=== PATIENT | female | born 1975 | race Caucasian/White ===

== ENCOUNTER → 2018-09-14 10:46 | Emergency (ER) | payer OTHER ==
--- OUTSIDE RECORDS SUMMARY | 2018-09-14 11:00 | XMS REPORT | Continuity of Care Document ---
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 Phencyclidine Screen None Detected None Detect 33 Comp Metabolic Panel 05/08/2018 [facility] Sodium 137 mmol/L N 135- 145 [phone] Potassium 3.8 mmol/L N 3.5-5.0 Chloride 103 mmol/L N 101-111 Co2 Carbon Dioxide 24 mmol/L N 22-32 Anion Gap 10 mmol/L N 2-11 Glucose 126 mg/dL High 70-100 Blood Urea Nitrogen 9 mg/dL N 6-24 Creatinine 0.68 mg/dL N 0.51-0.95 BUN/Creatinine Ratio 13.2 N 8-20 Calcium 9.4 mg/dL N 8.6-10.3 Total Protein 8.1 g/dL N 6.4-8.9 Albumin 4.3 g/dL N 3.2-5.2 Globulin 3.8 g/dL N 2-4 Albumin/Globulin Ratio 1.1 N 1-3 Total Bilirubin 0.40 mg/dL N 0.2-1.0 Alkaline Phosphatase 95 U/L N 34-104 Alt 25 U/L N 7-52 Ast 24 U/L N 13-39 Egfr Non- 94.9 >60 Egfr 114.8 >60 34 Laboratory test finding 05/08/2018 [facility] HCG < 0.60 mIU/ mL 35 [phone] Acetaminophen < 15 g/mL 36 Alcohol < 10 mg/dL N <10 Salicylate < 2.50 mg/dL <30 TSH (Thyroid Stim Horm) 1.07 mcIU/mL N 0.34-5.60 CBC Auto Diff 05/08/2018 [facility] White Blood 12.3 10^3/uL High 3.5 -10.8 [phone] Count Red Blood Count 5.06 10^6/uL N 4.00-5.40 Hemoglobin 13.8 g/dL N 12.0-16.0 Hematocrit 42 % N 35-47 Mean Corpuscular Volume 82 fL N 80-97 Mean Corpuscular Hemoglobin 27 pg N 27-31 Mean Corpuscular HGB Conc 33 g/dL N 31-36 Red Cell Distribution Width 15 % N 10.5-15 Platelet Count 465 10^3/uL High 150-450 Mean Platelet Volume 6.5 fL Low 7.4-10.4 Abs Neutrophils 8.5 10^3/uL High 1.5-7.7 Abs Lymphocytes 2.7 10^3/uL N 1.0-4.8 Abs Monocytes 0.8 10^3/uL N 0-0.8 Abs Eosinophils 0.2 10^3/uL N 0-0.6 Abs Basophils 0.1 10^3/uL N 0-0.2 Abs Nucleated RBC 0 10^3/uL Granulocyte % 69.3 % N 38-83 Lymphocyte % 21.7 % Low 25-47 Monocyte % 6.3 % N 0-7 Eosinophil % 1.5 % N 0-6 Basophil % 1.2 % N 0-2 Nucleated Red Blood Cells % 0.2 Urinalysis Profile 05/08/2018 [facility] Urine Color Yellow [phone] Urine Appearance Cloudy Urine Specific [place] 1.011 N 1.010-1.030 Urine pH 8.0 N 5-9 Urine Urobilinogen Negative Negative Urine Ketones Negative Negative Urine Protein Negative Negative Urine Leukocytes Negative Negative Urine Blood 2+ Abnormal Negative Urine Nitrite Negative Negative Urine Bilirubin Negative Negative Urine Glucose Negative Negative Urine White Blood Cell Trace(0-5/hpf) Absent Urine Red Blood Cell Trace(0-2/hpf) Absent Urine Bacteria Absent Absent Urine Squamous Epithelial Cell Present Abnormal Absent Urine Culture And 05/08/2018 [facility] Urine Culture SEE RESULT 37 Sensitivities [phone] BELOW Urine Drug Screen 04/25/2018 In House Ua Cocaine - Inhouse Ua Opiates - Ua Amphetamines - Urine Methanphetamines - Urine Benzodiazepines QN [place] - Urine Oxycodone QL - Urine Drug Screen Inhouse 04/11/2018 In House Ua Cocaine - Ua Opiates - Ua Amphetamines - Urine Methanphetamines - Urine Benzodiazepines QN [place] - Urine Oxycodone QL - Pthi 01/29/2018 [facility] Calcium (PTH Intact) 9.0 mg/dL N 8.6-10.3 [phone] PTH Intact 5.3 pmol/L N 1.3-9.3 Laboratory test 01/29/2018 [facility] TSH (Thyroid 1.55 mcIU/mL N 0.34-5.60 finding [phone] Stim Horm) Basic Metabolic 01/29/2018 [facility] Sodium 138 mmol/L N 135-145 Panel [phone] Potassium 4.3 mmol/L N 3.5-5.0 Chloride 106 mmol/L N 101-111 Co2 Carbon Dioxide 24 mmol/L N 22-32 Anion Gap 8 mmol/L N 2-11 Glucose 106 mg/dL High 70-100 Blood Urea Nitrogen 16 mg/dL N 6-24 Creatinine 0.89 mg/dL N 0.51-0.95 BUN/Creatinine Ratio 18.0 N 8-20 Calcium 9.0 mg/dL N 8.6-10.3 Egfr Non- 69.6 >60 Egfr 84.2 >60 38 Laboratory test 01/29/2018 [facility] Insulin Level 74.9 mcIU/mL High 2.0-16.0 finding [phone] Ua Inhouse 01/27/2018 In House Ua Glucose - 39 Ua Bilirubin - Ua Ketones - Ua Specific [place] 1.020 Ua Blood sm/ 1+ Ua PH 6.0 Ua Protein - Ua Urobilinogen - Ua Nitrite - Ua Leukocytes - Culture Urine Inhouse 01/27/2018 In House Colonies negative Laboratory test finding 01/27/2018 In House Test Urine negative Laboratory test finding 12/24/2017 In House Hemoglobin A1c 5.9 Laboratory test finding 12/04/2017 In House Culture Throat Rapid negative Screen Culture Throat negative Basic Metabolic Panel 11/28/2017 [facility] Sodium 134 mmol/L Low 135 -145 [phone] Potassium 4.3 mmol/L N 3.5-5.0 Chloride 101 mmol/L N 101-111 Co2 Carbon Dioxide 24 mmol/L N 22-32 Anion Gap 9 mmol/L N 2-11 Glucose 104 mg/dL High 70-100 Blood Urea Nitrogen 15 mg/dL N 6-24 Creatinine 0.70 mg/dL N 0.51-0.95 BUN/Creatinine Ratio 21.4 High 8-20 Calcium 9.3 mg/dL N 8.6-10.3 Egfr Non- 91.8 >60 Egfr 118.0 >60 40 CBC Auto Diff 11/28/2017 [facility] White Blood Count 9.6 10^3/uL N 3.5-10.8 [phone] Red Blood Count 4.54 10^6/uL N 4.00-5.40 Hemoglobin 12.7 g/dL N 12.0-16.0 Hematocrit 38 % N 35-47 Mean Corpuscular Volume 84 fL N 80-97 Mean Corpuscular Hemoglobin 28 pg N 27-31 Mean Corpuscular HGB Conc 33 g/dL N 31-36 Red Cell Distribution Width 15 % N 10.5-15 Platelet Count 405 10^3/uL N 150-450 Mean Platelet Volume 6.9 um3 Low 7.4-10.4 Abs Neutrophils 5.6 10^3/uL N 1.5-7.7 Abs Lymphocytes 2.8 10^3/uL N 1.0-4.8 Abs Monocytes 0.7 10^3/uL N 0-0.8 Abs Eosinophils 0.5 10^3/uL N 0-0.6 Abs Basophils 0.1 10^3/uL N 0-0.2 Abs Nucleated RBC 0 10^3/uL Granulocyte % 58.1 % N 38-83 Lymphocyte % 29.0 % N 25-47 Monocyte % 6.9 % N 0-7 Eosinophil % 5.0 % N 0-6 Basophil % 1.0 % N 0-2 Nucleated Red Blood Cells % 0.1 Celiac Panel 11/28/2017 [facility] Tissue Transglutaminase IgA <1.2 U/ mL 41 [phone] Ab Immunoglobulin A 358 mg/dL Abnormal 61 - 356 Celiac Interpretation See Comment 42 Laboratory test 11/28/2017 [facility] Erythrocyte Sed 29 mm/Hr High 0 -14 finding [phone] Rate Lyme Disease Serology Negative Negative 43 TSH (Thyroid Stim Horm) 1.95 mcIU/mL N 0.34-5.60 Laboratory test finding 09/26/2017 In House Hemoglobin A1c 6.0 Urinalysis Profile 06/24/2017 [facility] Urine Color Yellow [phone] Urine Appearance Cloudy Urine Specific [place] 1.021 N 1.010-1.030 Urine pH 6.0 N 5-9 Urine Urobilinogen Negative Negative Urine Ketones Negative Negative Urine Protein Negative Negative Urine Leukocytes 3+ Abnormal Negative Urine Blood 1+ Abnormal Negative Urine Nitrite Negative Negative Urine Bilirubin Negative Negative Urine Glucose Negative Negative Urine White Blood Cell 2+(11-20/hpf) Abnormal Absent Urine Red Blood Cell 1+(3-5/hpf) Abnormal Absent Urine Bacteria Absent Absent Urine Squamous Epithelial Cell Present Abnormal Absent Urine Drug 06/24/2017 [facility] Amphetamine Ur None Detected None Detect SCR ED & [phone] Screen Pain Clinic Barbiturates Urine Screen None Detected None Detect Benzodiazepine Urine Screen None Detected None Detect Urine Cannabinoids Screen None Detected None Detect Urine Cocaine Screen None Detected None Detect Urine Opiates Screen None Detected None Detect Urine Phencyclidine Screen None Detected None Detect 44 Laboratory test 06/24/2017 [facility] Urine Culture And SEE RESULT 45 finding [phone] Sensitivities BELOW CBC Auto Diff 06/24/2017 [facility] White Blood Count 10.4 10^3/uL N 3.5-10 [phone] .[phone] Red Blood Count 4.85 10^6/uL N 4.0-5.4 Hemoglobin 13.1 g/dL N 12.0-16.0 Hematocrit 40 % N 35-47 Mean Corpuscular Volume 82 fL N 80-97 Mean Corpuscular Hemoglobin 27 pg N 27-31 Mean Corpuscular HGB Conc 33 g/dL N 31-36 Red Cell Distribution Width 14 % N 10.5-15 Platelet Count 409 10^3/uL N 150-450 Mean Platelet Volume 7 um3 Low 7.4-10.4 Abs Neutrophils 6.5 10^3/uL N 1.5-7.7 Abs Lymphocytes 2.8 10^3/uL N 1.0-4.8 Abs Monocytes 0.8 10^3/uL N 0-0.8 Abs Eosinophils 0.2 10^3/uL N 0-0.6 Abs Basophils 0.1 10^3/uL N 0-0.2 Abs Nucleated RBC 0 10^3/uL Granulocyte % 62.4 % N 38-83 Lymphocyte % 26.9 % N 25-47 Monocyte % 7.3 % N 1-9 Eosinophil % 2.4 % N 0-6 Basophil % 1.0 % N 0-2 Nucleated Red Blood Cells % 0.1 Laboratory test 06/24/2017 [facility] Lactic Acid 1.9 mmol/L N 0.5- 2.0 46 finding [phone] Laboratory test 06/24/2017 [facility] HCG 0.75 mIU/mL 47 finding [phone] Acetaminophen < 15 g/mL 48 Alcohol < 10 mg/dL N <10 Salicylate < 2.50 mg/dL <30 Comp Metabolic Panel 06/24/2017 [facility] Sodium 134 mmol/L N 133- 145 [phone] Potassium 3.6 mmol/L N 3.5-5.0 Chloride 100 mmol/L Low 101-111 Co2 Carbon Dioxide 25 mmol/L N 22-32 Anion Gap 9 mmol/L N 2-11 Glucose 123 mg/dL High 70-100 Blood Urea Nitrogen 12 mg/dL N 6-24 Creatinine 0.70 mg/dL N 0.51-0.95 BUN/Creatinine Ratio 17.1 N 8-20 Calcium 9.4 mg/dL N 8.6-10.3 Total Protein 7.5 g/dL N 6.4-8.9 Albumin 3.9 g/dL N 3.2-5.2 Globulin 3.6 g/dL N 2-4 Albumin/Globulin Ratio 1.1 N 1-3 Total Bilirubin 0.20 mg/dL N 0.2-1.0 Alkaline Phosphatase 78 U/L N 34-104 Alt 16 U/L N 7-52 Ast 19 U/L N 13-39 Egfr Non- 92.2 >60 Egfr 118.6 >60 49 Laboratory test 06/12/2017 [facility] Hemoglobin A1c 6.3 % High 4.0- 5.6 50 finding [phone] (Glyco HGB) Laboratory test 06/12/2017 [facility] HCG 0.80 51 finding [phone] mIU/mL Basic Metabolic 06/12/2017 [facility] Sodium 137 N 133-145 Panel [phone] mmol/L Potassium 3.7 mmol/L N 3.5-5.0 Chloride 103 mmol/L N 101-111 Co2 Carbon Dioxide 27 mmol/L N 22-32 Anion Gap 7 mmol/L N 2-11 Glucose 106 mg/dL High 70-100 Blood Urea Nitrogen 10 mg/dL N 6-24 Creatinine 0.72 mg/dL N 0.51-0.95 BUN/Creatinine Ratio 13.9 N 8-20 Calcium 8.7 mg/dL N 8.6-10.3 Egfr Non- 89.3 >60 Egfr 114.8 >60 52 CBC Auto Diff 06/12/2017 [facility] White Blood 12.6 10^3/uL High 3.5 -10.8 [phone] Count Red Blood Count 4.39 10^6/uL N 4.0-5.4 Hemoglobin 12.2 g/dL N 12.0-16.0 Hematocrit 36 % N 35-47 Mean Corpuscular Volume 83 fL N 80-97 Mean Corpuscular Hemoglobin 28 pg N 27-31 Mean Corpuscular HGB Conc 34 g/dL N 31-36 Red Cell Distribution Width 14 % N 10.5-15 Platelet Count 398 10^3/uL N 150-450 Mean Platelet Volume 7 um3 Low 7.4-10.4 Abs Neutrophils 8.4 10^3/uL High 1.5-7.7 Abs Lymphocytes 3.1 10^3/uL N 1.0-4.8 Abs Monocytes 0.7 10^3/uL N 0-0.8 Abs Eosinophils 0.3 10^3/uL N 0-0.6 Abs Basophils 0.2 10^3/uL N 0-0.2 Abs Nucleated RBC 0 10^3/uL Granulocyte % 66.4 % N 38-83 Lymphocyte % 24.3 % Low 25-47 Monocyte % 5.5 % N 1-9 Eosinophil % 2.4 % N 0-6 Basophil % 1.4 % N 0-2 Nucleated Red Blood Cells % 0 1 Because ethnic data is not always readily available, this report includes an eGFR for both -Americans and non- Americans. The National Kidney Disease Education Program (NKDEP) does not endorse the use of the MDRD equation for patients that are not between the ages of 18 and 70, are , have extremes of body size, muscle mass, or nutritional status, or are non- or non-. According to the National Kidney Foundation, irrespective of diagnosis, the stage of the disease is based on the level of kidney function: Stage Description GFR(mL/min/1.73 m(2)) 1 Kidney damage with normal or decreased GFR 90 2 Kidney damage with mild decrease in GFR 60-89 3 Moderate decrease in GFR 30-59 4 Severe decrease in GFR 15-29 5 Kidney failure <15 (or dialysis) 2 Therapeutic concentration: <50 ug/mL Toxic concentration: >120 ug/mL 3 Presumptive Positive Presumptive positive results are unconfirmed. 4 The urine specimen was tested at the listed cutoffs: Drug class test level (ng/mL) Amphetamines 500 Barbiturates 200 Benzodiazepine metabolites 200 Cocaine metabolites 150 Cannabinoids 50 Opiates 300 Pcp 25 Specimen was received without chain of custody. Results should be used for medical purposes only. 5 void, clear, gold 6 <5.0 Negative 5.0 - 25.0 Indeterminate (Repeat testing recommended after 72 hours) >25.0 Positive Perimenopausal women can display HCG levels of up to 20 mIU/mL 7 SEE RESULT BELOW Name: ABRIL NGUYEN : [address]: Katy SEGOVIA Acct: [id number] Unit: [id number] AGE: 42 Location: [facility] Re07/15/18 SEX: F Status: REG REF SPEC: [id number] TYLER: 07/15/18-[address] [facility] [address]: Katy SEGOVIA REQ: [id number] RECD: 07/16/18-1251 STATUS: SOUT _ ORDERED: TP IMAGE ANALYS, HPV/Thin Prep COMMENTS: [id number] Negative for Intraepithelial lesion or Malignancy Date Time Test Result Flag (u) Normal Range 07/15/18 7737 @ HPV RNA Negative Negative @ @ The high-risk HPV types detected by the assay include: 16, @ 18, 31, 33, 35, 39, 45, 51, 52, 56, 58, 59, 66, and 68. A. Ectocervical/Endocervical Specimen Adequacy: Satisfactory of evaluation Transformation zone component not identified Patient Information: HPV: High risk HPV RNA testing regardless of pap results. Actual Specimen Date: 07/15/18 Last Menstrual Date: 07/09/18 ?: N Post Menopausal?: N Hysterectomy?: N Signed by and Reported on: VASHTI Menard(ASCP) 1028 This Pap test was evaluated with the assistance of the ThinPrep Test Imaging System. Due to cytologic findings at the med aide microscope, comprehensive manual rescreening by a Safe Technician may be required. The Pap Smear is a screening test designed to aid in the detection of premalignant and malignant conditions of the uterine cervix. It is not a diagnostic procedure and should not be used as the sole means of detecting cervical cancer. Both false- positive and false- negative reports do occur. Depending on your risk status, a Pap smear should be obtained and evaluated every 1-3 years. END OF REPORT DEPARTMENT OF PATHOLOGY, [address] [place] [address] Rashid Mcintosh M.D. Director [facility] # [id number] SEE RESULT BELOW Name: ABRIL NGUYEN : [address]: Je Rowland MD Acct: [id number] Unit: [id number] AGE: 42 Location: ED Re07/12/18 SEX: F Status: DEP ER SPEC: [id number] TYLER: 07/12/[address]: Kay Dai MD REQ: [id number] RECD: 07/12/18 STATUS: COMP [facility] DR: Joseph Hagen MD _ SOURCE: VAGINAL SPDESC: ORDERED: Lulu,Yeast DNA COMMENTS: Would you like to order Trichomonas Vaginalis RNA testing? Y Procedure Result Reported Site Gardnerella/Yeast: Vaginal DNA Final 07/13/18- 1108 ML Organism 1 POSITIVE GARDNERELLA Organism 2 Negative Mirlande The presence of G. vaginalis, although suggestive, is not diagnostic for bacterial vaginosis. Results should be interpreted in conjuction with other clinical and laboratory data available. Women with vaginal discharge should be evaluated for risk factors of cervicitis and pelvic inflammatory disease, toxic shock syndrome (S.aureus), and if present, evaluated for organisms not included in this assay such as N. gonorrhoeae, C. trachomatis, Mobiluncus, Mycoplasma and/or Prevotella. Mixed infections may occur. The performance of this test on patient specimens collected during or immediately after antimicrobial therapy is unknown. The presence or absence of Mirlande species, or G. vaginalis cannot be used as a test for therapeutic success or failure. * ML - Main Lab . END OF REPORT DEPARTMENT OF PATHOLOGY, [address] [place] [address] Rashid Mcintosh M.D. Director [facility] # [id number] 9 GC/Chlamydia Source?: Endocervical Trichomonas Source: Endocervical 10 [facility] Severe Sepsis and Septic Shock Management Bundle Measure requires all lactic acids initially measuring >2.0 mmol/L be repeated. 11 Presumptive Positive Presumptive positive results are unconfirmed. 12 Presumptive Positive Presumptive positive results are unconfirmed. 13 The urine specimen was tested at the listed cutoffs: Drug class test level (ng/mL) Amphetamines 500 Barbiturates 200 Benzodiazepine metabolites 200 Cocaine metabolites 150 Cannabinoids 50 Opiates 300 Pcp 25 Specimen was received without chain of custody. Results should be used for medical purposes only. 14 Because ethnic data is not always readily available, this report includes an eGFR for both -Americans and non- Americans. The National Kidney Disease Education Program (NKDEP) does not endorse the use of the MDRD equation for patients that are not between the ages of 18 and 70, are , have extremes of body size, muscle mass, or nutritional status, or are non- or non-. According to the National Kidney Foundation, irrespective of diagnosis, the stage of the disease is based on the level of kidney function: Stage Description GFR(mL/min/1.73 m(2)) 1 Kidney damage with normal or decreased GFR 90 2 Kidney damage with mild decrease in GFR 60-89 3 Moderate decrease in GFR 30-59 4 Severe decrease in GFR 15-29 5 Kidney failure <15 (or dialysis) 15 SEE RESULT BELOW Name: ABRIL NGUYEN : [address]: Je Rowland MD Acct: [id number] Unit: [id number] AGE: 42 Location: ED Re07/12/18 SEX: F Status: DEP ER SPEC: [id number] TYLER: 07/12/[address]: Kay Dai MD REQ: [id number] RECD: 07/12/18 STATUS: CONNIE GLOVER DR: Joseph Hagen MD _ SOURCE: URINE [facility]: ORDERED: Urine Culture Procedure Result Reported Site Urine Culture Final 07/14/18- 0850 ML Organism 1 ESCHERICHIA COLI [place] Count >100,000 (Many) CFU/ML 1. ESCHERICHIA COLI M.I.C. RX --------- ------ Ampicillin 8 S Cefazolin <=4 S Cefepime <=1 S Ceftriaxone <=1 S Ciprofloxacin <=0.25 S Gentamicin <=1 S Levofloxacin <=0.12 S Meropenem <=0.25 S Nitrofurantoin 64 I Tetracycline <=1 S Pipercillin/Tazobactam <=4 S Trimethoprim/Sulfamethoxazole <=20 S Amoxicillin/Clavulanic Acid 4 S Aztreonam <=1 S Contact the Microbiology Department for any additional antibiotic reporting. * ML - Main Lab . END OF REPORT DEPARTMENT OF PATHOLOGY, [address] [place] [id number] Rashid Mcintosh M.D. Director [facility] # [id number] 16 <5.0 Negative 5.0 - 25.0 Indeterminate (Repeat testing recommended after 72 hours) >25.0 Positive Perimenopausal women can display HCG levels of up to 20 mIU/mL 17 FASTING 18 No evidence of antibodies to B. burgdorferi detected. False negative results may occur in recently infected patients (<=2 weeks) due to low or undetectable antibody levels to B. burgdorferi. If recent exposure is suspected, a second sample should be collected and tested in 2-4 weeks. Test Performed by: [facility] [place] [address] 19 REFERENCE VALUE <=1.0 (Negative) Test Performed by: [facility] [place] [address] 20 FASTING 21 REFERENCE VALUE <20.0 (Negative) Test Performed by: [facility] [place] [address] 22 Because ethnic data is not always readily available, this report includes an eGFR for both -Americans and non- Americans. The National Kidney Disease Education Program (NKDEP) does not endorse the use of the MDRD equation for patients that are not between the ages of 18 and 70, are , have extremes of body size, muscle mass, or nutritional status, or are non- or non-. According to the National Kidney Foundation, irrespective of diagnosis, the stage of the disease is based on the level of kidney function: Stage Description GFR(mL/min/1.73 m(2)) 1 Kidney damage with normal or decreased GFR 90 2 Kidney damage with mild decrease in GFR 60-89 3 Moderate decrease in GFR 30-59 4 Severe decrease in GFR 15-29 5 Kidney failure <15 (or dialysis) 23 FASTING 24 FASTING 25 Desirable: <150 Borderline High: 150-199 High: 200-499 Very High: >500 26 Desirable: <200 Borderline High: 200-239 High: >239 27 Low: <40 Desirable: 40-60 High: >60 28 Desirable: <100 Near Optimal: 100-129 Borderline High: 130-159 High: 160-189 Very High: >189 29 Therapeutic target for the treatment of diabetes mellitus patients is <7% HBA1C, and in selective patients <6.0%. Please refer to [employer] diabetic care guidelines for further information. 30 FASTING 31 Presumptive Positive Presumptive positive results are unconfirmed. 32 Presumptive Positive Presumptive positive results are unconfirmed. 33 The urine specimen was tested at the listed cutoffs: Drug class test level (ng/mL) Amphetamines 500 Barbiturates 200 Benzodiazepine metabolites 200 Cocaine metabolites 150 Cannabinoids 50 Opiates 300 Pcp 25 Specimen was received without chain of custody. Results should be used for medical purposes only. 34 Because ethnic data is not always readily available, this report includes an eGFR for both -Americans and non- Americans. The National Kidney Disease Education Program (NKDEP) does not endorse the use of the MDRD equation for patients that are not between the ages of 18 and 70, are , have extremes of body size, muscle mass, or nutritional status, or are non- or non-. According to the National Kidney Foundation, irrespective of diagnosis, the stage of the disease is based on the level of kidney function: Stage Description GFR(mL/min/1.73 m(2)) 1 Kidney damage with normal or decreased GFR 90 2 Kidney damage with mild decrease in GFR 60-89 3 Moderate decrease in GFR 30-59 4 Severe decrease in GFR 15-29 5 Kidney failure <15 (or dialysis) 35 <5.0 Negative 5.0 - 25.0 Indeterminate (Repeat testing recommended after 72 hours) >25.0 Positive Perimenopausal women can display HCG levels of up to 20 mIU/mL 36 Therapeutic concentration: <50 ug/mL Toxic concentration: >120 ug/mL 37 SEE RESULT BELOW Name: ABRIL NGUYEN : [address]: Silvio Madrid MD Acct: [id number] Unit: [id number] AGE: 42 Location: [address] Re05/08/18 SEX: F Status: ADM IN SPEC: [id number] TYLER: 05/08/[address] [facility] [address]: Jimmy Deshpande MD REQ: [id number] RECD: 05/08/18 STATUS: CONNIE GLOVER DR: Joseph Hagen MD _ SOURCE: URINE SPDESC: ORDERED: Urine Culture Procedure Result Reported Site Urine Culture Final 05/10/18- 925 ML No growth of clinically significant organisms * ML - Main Lab . END OF REPORT DEPARTMENT OF PATHOLOGY, [address] [place] [address] Rashid Mcintosh M.D. Director [facility] # [id number] 38 Because ethnic data is not always readily available, this report includes an eGFR for both -Americans and non- Americans. The National Kidney Disease Education Program (NKDEP) does not endorse the use of the MDRD equation for patients that are not between the ages of 18 and 70, are , have extremes of body size, muscle mass, or nutritional status, or are non- or non-. According to the National Kidney Foundation, irrespective of diagnosis, the stage of the disease is based on the level of kidney function: Stage Description GFR(mL/min/1.73 m(2)) 1 Kidney damage with normal or decreased GFR 90 2 Kidney damage with mild decrease in GFR 60-89 3 Moderate decrease in GFR 30-59 4 Severe decrease in GFR 15-29 5 Kidney failure <15 (or dialysis) 39 geronimo, rossy mejia 40 Because ethnic data is not always readily available, this report includes an eGFR for both -Americans and non- Americans. The National Kidney Disease Education Program (NKDEP) does not endorse the use of the MDRD equation for patients that are not between the ages of 18 and 70, are , have extremes of body size, muscle mass, or nutritional status, or are non- or non-. According to the National Kidney Foundation, irrespective of diagnosis, the stage of the disease is based on the level of kidney function: Stage Description GFR(mL/min/1.73 m(2)) 1 Kidney damage with normal or decreased GFR 90 2 Kidney damage with mild decrease in GFR 60-89 3 Moderate decrease in GFR 30-59 4 Severe decrease in GFR 15-29 5 Kidney failure <15 (or dialysis) 41 REFERENCE VALUE <4.0 (Negative) Test Performed by: [place] [address] 42 Negative serology. Celiac disease unlikely. However, approximately 10% of patients with celiac disease are seronegative. Also, patients who are already adhering to a gluten-free diet may be seronegative. If celiac disease is highly clinically suspected, consider HLA-DQ typing. Test Performed by: [place] [id number] 43 No evidence of antibodies to B. burgdorferi detected. False negative results may occur in recently infected patients (<=2 weeks) due to low or undetectable antibody levels to B. burgdorferi. If recent exposure is suspected, a second sample should be collected and tested in 2-4 weeks. Test Performed by: [facility] [address] [place] [address] 44 The urine specimen was tested at the listed cutoffs: Drug class test level (ng/mL) Amphetamines 500 Barbiturates 200 Benzodiazepine metabolites 200 Cocaine metabolites 150 Cannabinoids 50 Opiates 300 Pcp 25 Specimen was received without chain of custody. Results should be used for medical purposes only. 45 SEE RESULT BELOW Name: ABRIL NGUYEN : [address]: Je Duarte MD Acct: [id number] Unit: [id number] AGE: 41 Location: ED Re06/24/17 SEX: F Status: DEP ER SPEC: [id number] TYLER: 06/24/[address]: Je Duarte MD REQ: [id number] RECD: 06/24/17 STATUS: COMP OTHR DR: Joseph Hagen MD _ SOURCE: URINE SPDESC: ORDERED: Urine Culture Procedure Result Reported Site Urine Culture Final 06/26/17- 811 ML No growth of clinically significant organisms * ML - MAIN LAB ([facility]) . END OF REPORT * ML=Testing performed at Main Lab DEPARTMENT OF PATHOLOGY, [address] [place] [address] Rashid Mcintosh M.D. Director [facility] #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
[2018-09-14 12:56] VITALS: BP 140/95
[2018-09-14 15:19] LABS: Hematocrit 39 % (33-41); Hemoglobin 12.8 g/dL (12.0-16.0); Mean Corpuscular HGB Conc 33 g/dL (31-36); Mean Corpuscular Hemoglobin 27 pg (27-31); Mean Corpuscular Volume 82 fL (80-97); Mean Platelet Volume 7.1 fL (7.4-10.4); Platelet Count 434 10^3/uL (150-450); Red Blood Count 4.74 10^6 /uL (3.70-4.87); Red Cell Distribution Width 15 % (10.5-15)
[2018-09-14 15:35] LABS: Albumin 4.1 g/dL (3.2-5.2); Albumin/Globulin Ratio 1.2 (1-3); BUN/Creatinine Ratio 22.4 (8-20); C Reactive Protein 5.52 mg/L (<8.01); Calcium 9.2 mg/dL (8.6-10.3); EGFR African American 137.9 (>60); Globulin 3.3 g/dL (2-4); Potassium 4.2 mmol/L (3.5-5.0); Total Bilirubin 0.2 mg/dL (0.2-1.0); Total Protein 7.4 g/dL (6.4-8.9)
== END | disposition left against medical advice (07) ==
LOC: ED 10:46 → MERGE 10:46
DX: M54.2 Cervicalgia (principal); R51 Headache; Z53.21 Procedure and treatment not carried out due to patient leaving prior to being seen by health care provider
CPT/HCPCS: 36415; 72040; 80053; 85027; 86140

== ENCOUNTER → 2019-01-03 04:41 | Emergency (ER) | payer OTHER ==
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
--- OUTSIDE RECORDS SUMMARY | 2019-01-03 06:28 | XMS REPORT | Continuity of Care Document ---
:1975 External Reference #:[id number] Author Name Bhupendra Nunes D.O. Address [address] [place] [id number] Care Team Providers Name Role Phone HCP given Primary Care Physician Unavailable Payers Date Identification Numbers Payment Provider Subscriber Effective: 2018 Policy Number: [id number] [facility] Abril Nguyen PayID: [id number] [address] [place] [address] Problems Active Problems Provider Date Essential hypertension Danii Gonzáles Onset: 05/13/2017 Obesity Valeria Nelson PA Onset: 12/04/2017 Chronic pain syndrome Valeria Nelson PA Onset: 12/04/2017 Mixed anxiety and depressive disorder Valeria Nelson PA Onset: 12/04/2017 Arthrogryposis Valeria Nelson PA Onset: 12/04/2017 Gastroesophageal reflux disease Valeria Nelson PA Onset: 12/04/2017 Allergic rhinitis Valeria Nelson PA Onset: 12/04/2017 Anemia Valeria Nelson PA Onset: 12/04/2017 Migraine without aura, not refractory Valeria Nelson PA Onset: 01/08/2018 Adjustment disorder with mixed emotional Valeria Nelson PA Onset: 01/08/2018 features Obstructive sleep apnea syndrome Valeria Nelson PA Onset: 06/04/2018 Tobacco user Valeria Nelson PA Onset: 06/04/2018 Asthma without status asthmaticus Valeria Nelson PA Onset: 06/04/2018 Prediabetes Valeria Nelson PA Onset: 06/25/2018 Hyperlipidemia Valeria Nelson PA Onset: 06/25/2018 Vitamin D deficiency Valeria Nelson PA Onset: 06/25/2018 Family History Date Family Member(s) Observation Comments [...] 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 Currently Working at [employer] 2018 Right-handed Abuse No history of abuse Tobacco Use Start: Unknown Former Cigarette End: Unknown Smoker ETOH Use Denies alcohol use "rarely" Recreational Drug Use Cocaine used it a couple of times ~Apr 2018 in setting of learning that her was cheating on her Tobacco Use Reviewed: 09/16/18 Light tobacco smoker (10 or fewer cigarettes/day) Smoking Status Reviewed: 01/02/19 Light tobacco smoker (10 or fewer cigarettes/day) Exercise Type/Frequency Exercises regularly walking Sun Exposure Does not use sunscreen Seat Belt/Car Seat always uses seat belt Guns in Home No Smoke Alarms Yes smoke alarm Currently Active Patient is currently sexually active Age [address] [place] 18 Years Old Allergies, Adverse Reactions, Alerts Description No Known Drug Allergies Medications Active Medications SIG Qnty Indications Ordering Date Provider Prednisone 2 tabs for 5 15tabs R05 Abicorob, 10mg Tablets days then 1 tab Shanique Ruiz 9 for 5 days with cough/breathing Loratadine 1 by mouth 30caps Silcoff, 10mg Capsules before bed, Shanique Ruiz 9 nightly Nicotine Mini 1 lozenge every 162units F17.210 Silcoff, 4mg Lozenges one to two Shanique Ruiz 9 hours, or when have urge to smoke Eql Omeprazole 1 tab po in 30tabs R05 Silcoff, 20mg Tablets DR morning 20 Shanique Ruiz 9 minutes before the first meal of the day Aripiprazole take one tablet 30tabs F43.23 Silcoff, 5mg Tablets by mouth nightly Shanique Ruiz 9 for mood Losartan Potassium 1 tablet daily 30tabs I10 Silcoff, 25mg Tablets for high blood Shanique Ruiz 9 pressure Albuterol Sulfate HFA inhale one to 18units Silcorob, two puffs by Shanique Ruiz 9 108(90Base) mcg/Act mouth every 4 Aerosol hours for breath Naproxen take 2 tablet by 120tabs Silcorob, 250mg Tablets mouth two times Shanique Ruiz 9 daily as needed Hydrochlorothiazide take 1 tablet by 30tabs I10 Silcoff, 25mg mouth every day Shanique Ruiz 9 Tablets Fluticasone Propionate 2 sprays into 16gm J30.9 Silcoff, each nostril Shanique Ruiz 7 50mcg/Act Suspension once daily for nasal congestion as needed History Medications Benzonatate 1 cap up to 30caps R05 Xiao, 12/05/2018 - 200mg Capsules three times a Shanique Ruiz 12/24/2018 day for cough Benzonatate 1 cap up to 30caps R05 Xiao, 11/13/2018 - 200mg Capsules three times a Shanique Ruiz 12/04/2018 day for cough, when no longer productive Amoxicillin 1 by mouth twice 20tabs J01.90 Abicorob, 10/10/2018 - 875mg Tablets a day x 10 days Shanique Ruiz 11/12/2018 for bacterial pharyngitis Ankle Support Wear daily for 2units M25.579 Xiao, 2018 - support in your Shanique Ruiz 11/12/2018 ankles Nicotine Polacrilex 2 mg oral every Unknown 08/15/2018 - 2mg Gum 12 hours as 08/15/2018 needed Amoxicillin/Clavulanate 1 twice a day x 14tabs N39.0 Silcoff, 07/15/2018 - Potassium 7 days for uti Shanique Ruiz 07/30/2018 500-125mg Tablets Lomotil 1-2 qid prn 30tabs R19.7 Anthony Barrno 07/12/2018 - 2.5mg;0.025 mg diarrhea Shanique Upton 07/12/2018 Tablets Buspirone HCL 1 twice a day 60tabs Silcoff, 06/30/2018 - 5mg Tablets for anxiety Shanique Ruiz 08/15/2018 Hydrochlorothiazide 1 tab by mouth 60caps I10 Silco, 06/30/2018 - 12.5mg every morning Shanique Ruiz 07/16/2018 Capsules for high blood pressure x 5 days then increase to 2 every morning Bupropion HCL ER (SR) start 1 by mouth 30tabs F43.23 Silcoff, 06/26/2018 - 100mg when you get up Shanique Ruiz 08/15/2018 Tablets ER 12HR for the day Triamcinolone Acetonide apply to 60gm B02.9 Silco, 04/29/2018 - 0.1% affected areas Shanique Ruiz 05/22/2018 Cream torso: rash, 2-3 times a day, discontinue when it improves Clotrimazole apply externally 45gm B37.9 Silcoff, 04/29/2018 - 1% Cream to affected Shanique Ruiz 05/22/2018 areas twice a day for 2 weeks or until rash (under breast) has resolved: then cont 2 day after rash resolves Amoxicillin 1 by mouth twice 20tabs J01.90 Silcoff, 04/29/2018 - 875mg Tablets a day x 10 days Shanique Ruiz 05/09/2018 for bacterial pharyngitis Valacyclovir HCL 1 tablet by 21tabs Unknown 04/28/2018 - 1gm Tablets mouth three 05/05/2018 times a day x 7 days Gabapentin 1 by mouth at [facility], 04/18/2018 - 300mg Capsules bedtime for 1 Shanique Ruiz 04/18/2018 week then stop it; for pain Suboxone 1 film by mouth 30units F11.20 Silcoff, 04/14/2018 - 2-0.5mg Film every morning; Shanique Ruiz 06/24/2018 rx due 05/28/18; suboxone prescriber #[id number] Suboxone 1 film by mouth 2units F11.20 Silcoff, 04/11/2018 - 2-0.5mg Film every morning Shanique Ruiz 04/14/2018 starting on 04/13/18 (use remaining 8/2 film for 03/18 dose); suboxone prescriber #[id number] Suboxone 1/2 film by 2rivas F11.20 Xiao, 04/10/2018 - 8-2mg Film mouth now; may Shanique Ruiz 04/11/2018 take another 1/2 film today after 4 or more hours; take 1/2 film tomorrow am; suboxone prescriber# [id number] Suboxone 1/2 film by 2films F11.20 Xiao, 04/09/2018 - 8-2mg Film mouth tonightJoseph M.D. 04/10/2018 again tomorrow am and Saturday am; may take 1 more dose Marion stiven; suboxone prescriber# [id number] Nicoderm CQ 1 patch per day 28unshady F17.210 Xiao, 04/03/2018 - 14mg/24HR Patches Shanique Ruiz 05/22/2018 24HR Permethrin wash hair w/ 120gm Xiao, 03/28/2018 - 5% Cream shampoo only, Shanique Ruiz 05/22/2018 rinse. apply cream to saturate the hair & scalp, leave on for 10 min then rinse,repeat 9 days Permethrin wash hair w/ 120gm Xiao, 03/06/2018 - 5% Cream shampoo only, Shanique Ruiz 03/17/2018 rinse. apply cream to saturate the hair & scalp, leave on for 10 min then rinse,repeat 9 days Duoderm Hydroactive Change dressing 30Grams L03.115 Xiao, 02/11/2018 - Dressing daily for wound Shanique Ruiz 03/16/2018 [facility] Gel care management right ankle Cephalexin 1 two times a 20tabs L03.115 Silcoff, 02/04/2018 - 500mg Tablets day x 10d for Shanique Ruiz 02/14/2018 infection right ankle infection Sumatriptan Succinate 1 tab by mouth 9tabs G43.009 Xiao, 01/08/2018 - 50mg at onset of Shanique Ruiz 07/30/2018 Tablets migraine, may repeat x1 after 2 hours if needed Alprazolam 1 tab by mouth 90tabs G47.00 Silcorob, 01/08/2018 - 0.25mg Tablets up to three Shanique Ruiz 08/15/2018 times a day as needed for anxiety/panic attacks Topiramate 1 tablet by 30tamary Scruggs, 01/07/2018 - 100mg Tablets mouth daily MD Rafael 06/20/2018 Venlafaxine HCL ER 1 caps by mouth 90caps Xiao, 12/19/2017 - 75mg Caps x 3 days then Shanique Ruiz 08/22/2018 ER 24HR see if can d/c Buspirone HCL 1 twice a day 60tabs Xiao, 09/09/2017 - 5mg Tablets for anxiety Shanique Ruiz 06/17/2018 Alprazolam 1/2 to 1 tablet 1tabs G47.00 Xiao, 09/09/2017 - 1mg Tablets po up to 3x/ Shanique Ruiz 01/08/2018 Bupropion HCL ER (SR) take one tablet 60tabs Abicorob, 08/30/2017 - 100mg by mouth in the Shanique Ruiz 05/12/2018 Tablets ER 12HR morning and one at noon Cyclobenzaprine 1 tab by mouth Xiao, 07/12/2017 - Powder three times a Shanique Ruiz 07/12/2017 day Cyclobenzaprine HCL 1 tab by mouth 90tabs Xiao, 07/12/2017 - 10mg up to three Shanique Ruiz 06/26/2018 Tablets times a day for back pain, will make you drowsy TENS Unit Use as directed 1units Xiao, 07/12/2017 - with the Shanique Ruiz 09/25/2017 equipement 1-2 times a day for pain management Amitriptyline HCL start with 1 60tabs G43.001 Abicorob, 06/13/2017 - 10mg tablet at night Shanique Ruiz 07/09/2017 Tablets for holley. after one week can increase to 2 at night if needed Hydrochlorothiazide 1 tab by mouth 30tabs I10 Xiao, 06/13/2017 - 12.5mg every morning Shanique Ruiz 04/08/2018 Tablets Loratadine 1 by mouth every 30tabs Silcorob, 06/04/2017 - 10mg Tablets day as needed Shanique Ruiz 07/30/2018 for allergies Ventolin HFA 1-2 puff q4 1Inhaler Silcoff, 06/04/2017 - 108(90Base) hours for breath Shanique Ruiz 12/24/2017 mcg/Act Aerosol Clotrimazole 1 by mouth Unknown 05/12/2017 - 10mg Lozenges 5x/day for 2wks, 05/12/2017 for oral thrush Percocet 1 tab by mouth 150tabs M54.5 Silcoff, 05/12/2017 - 7.5-325mg Tablets every 4-6 hours Shanique Ruiz 04/08/2018 as needed for pain, can refill about 03/26/18 Iron High-Potency 1 every morning 30tabs D64.9 Silcoff, 05/12/2017 - 325mg Shanique Ruiz 12/05/2018 Tablets Wellbutrin SR 1 by mouth in 60tabs Silcoff, 05/12/2017 - 100mg Tablets the morning and Shanique Ruiz 08/30/2017 ER 12HR 1 at noon Omeprazole 1 tab po daily 30tabs K21.9 Silcoff, 05/12/2017 - 20mg Tablets DR as needed Shanique Ruiz 05/22/2018 Tylenol Extra Strength 2 tabs every 6 Unknown 05/12/2017 - 500mg hours tid 07/30/2018 Tablets Lisinopril take 2 tablets 90tabs I10 Silcoff, 05/12/2017 - 10mg Tablets by mouth in the Shanique Ruiz 12/05/2018 morning and 1 tablet in the evening Gabapentin 1 po in morning Unknown 05/12/2017 - 100mg Capsules and one at 09/25/2017 midday (may skip midday if it causes drowsiness) Meloxicam 1 tab by mouth 60tabs Silcoff, 05/12/2017 - 7.5mg Tablets in morning and Shanique Ruiz 08/15/2018 one at midday Cyclobenzaprine 1 tab po tid Unknown 05/12/2017 - 10mg 07/12/2017 Gabapentin Take One Capsule 30caps Silcoff, 05/12/2017 - 300mg Capsules By Mouth In The Shanique Ruiz 04/18/2018 Evening Venlafaxine HCL ER take one tablet 30tabs Silcoff, 05/12/2017 - 225mg by mouth once Shanique Ruiz 12/19/2017 Tablets ER 24HR daily with food for depression Aripiprazole take one tablet 30tabs Silcoff, 05/12/2017 - 5mg Tablets by mouth nightly Shanique Ruiz 08/15/2018 for mood Diclofenac Potassium Unknown - 50mg 06/13/2017 Tablets Medications Administered in Office Medication SIG Qnty Indications Ordering Provider Date TB Intradermal Test Danii Gonzáles 2018 Injection TB Intradermal Test Valeria Nelson PA 06/04/2018 Injection Toradol 15MG. Valeria Nelson PA 01/08/2018 Injection SC/Im Injections Valeria Nelson PA 01/08/2018 Injection TB Intradermal Test Katy Sol PRichar 06/04/2017 Injection Immunizations CPT Code Status Date Vaccine Lot # [id number] Given 03/20/2018 Influenza Virus Vaccine, Quadrivalent, Split, [id number] Preservative Free [id number] Given 06/06/2017 MMR Virus Immunization [id number] Given 06/04/2017 Influenza Virus Vaccine, Quadrivalent, Split, [id number] Preservative Free 00051 Given 12/11/2016 Adacel or Boostrix, TDaP [id number] Given 12/11/2016 MMR Virus Immunization U-Flu Given 04/23/2016 Influenza,Unspecified U-Flu Given 04/02/2013 Influenza,Unspecified 28919 Given 02/27/2012 Flu, Split Virus 3Yrs Vital Signs Date Vital Result Comment 01/02/2019 11:51am BP Systolic 120 mmHg BP Diastolic 78 mmHg 12/30/2018 2:45pm BP Systolic 104 mmHg BP Diastolic 72 mmHg Weight 204.00 lb 12/25/2018 5:09pm BP Systolic 130 mmHg BP Diastolic 78 mmHg Heart Rate 96 /min O2 % BldC Oximetry 98 % Weight 206.00 lb 12/15/2018 3:25pm BP Systolic 130 mmHg BP Diastolic 88 mmHg Height 63 inches 5'3" Weight 209.75 lb BMI (Body Mass Index) 37.2 kg/m2 12/05/2018 4:16pm BP Systolic 140 mmHg BP Diastolic 90 mmHg BP Systolic Recheck 132 mmHg BP Diastolic Recheck 72 mmHg Heart Rate 90 /min O2 % BldC Oximetry 98 % Weight 212.00 lb 11/13/2018 2:52pm BP Systolic 134 mmHg BP Diastolic 76 mmHg Heart Rate 96 /min O2 % BldC Oximetry 96 % Body Temperature 98.1 F Weight 219.00 lb 10/10/2018 4:21pm BP Systolic 108 mmHg BP Diastolic 76 mmHg Heart Rate 114 /min O2 % BldC Oximetry 97 % Body Temperature 98.1 F Weight 225.50 lb 09/29/2018 11:49am BP Systolic 124 mmHg BP Diastolic 90 mmHg BP Systolic Recheck 130 mmHg BP Diastolic Recheck 86 mmHg 2018 1:53pm BP Systolic 132 mmHg BP Diastolic 74 mmHg Weight 233.00 lb 08/18/2018 3:00pm BP Systolic 138 mmHg BP [...] Date Facility Test Result H/L Range Note Laboratory test finding 10/10/2018 In House Culture Throat negative Culture Throat Rapid Screen negative HIV 1/2 AB 09/23/2018 [facility] HIV 1 2 Nonreactive Nonreactive 1 Evaluation [phone] Antibody Hepatitis C 09/23/2018 [facility] HCV Index < 0.0 Index Antibody [phone] Hepatitis C Antibody Nonreactive Nonreactive Comp Metabolic Panel 09/14/2018 [facility] Sodium 136 mmol/L N 135- 145 [phone] Potassium 4.2 mmol/L N 3.5-5.0 Chloride 104 mmol/L N 101-111 Co2 Carbon Dioxide 23 mmol/L N 22-32 Anion Gap 9 mmol/L N 2-11 Glucose 92 mg/dL N 70-100 Blood Urea Nitrogen 13 mg/dL N 6-24 Creatinine 0.58 mg/dL N 0.51-0.95 BUN/Creatinine Ratio 22.4 High 8-20 Calcium 9.2 mg/dL N 8.6-10.3 Total Protein 7.4 g/dL N 6.4-8.9 Albumin 4.1 g/dL N 3.2-5.2 Globulin 3.3 g/dL N 2-4 Albumin/Globulin Ratio 1.2 N 1-3 Total Bilirubin 0.20 mg/dL N 0.2-1.0 Alkaline Phosphatase 64 U/L N 34-104 Alt 24 U/L N 7-52 Ast 25 U/L N 13-39 Egfr Non- 114.0 >60 Egfr 137.9 >60 2 Laboratory test 09/14/2018 [facility] C Reactive 5.52 mg/L N <8.01 finding [phone] Protein CBC No Diff 09/14/2018 [facility] White Blood 11.0 High 3.5-10.8 [phone] Count 10^3/uL Red Blood Count 4.74 10^6/uL N 3.70-4.87 Hemoglobin 12.8 g/dL N 12.0-16.0 Hematocrit 39 % N 33-41 Mean Corpuscular Volume 82 fL N 80-97 Mean Corpuscular Hemoglobin 27 pg N 27-31 Mean Corpuscular HGB Conc 33 g/dL N 31-36 Red Cell Distribution Width 15 % N 10.5-15 Platelet Count 434 10^3/uL N 150-450 Mean Platelet Volume 7.1 fL Low 7.4-10.4 CBC Auto Diff 08/12/2018 [facility] White Blood 12.2 10^3/uL High 3.5 -10.8 [phone] Count Red Blood Count 5.63 10^6/uL High [...] Cells % 0.1 Comp Metabolic Panel 08/12/2018 [facility] Sodium 136 mmol/L N 135- 145 [phone] Potassium 4.0 mmol/L N 3.5-5.0 Chloride 102 [...] Egfr Non- 78.7 >60 Egfr 95.2 >60 3 Laboratory test finding 08/12/2018 [facility] Alcohol < 10 mg/dL N < 10 [phone] Salicylate < 2.50 mg/dL <30 TSH (Thyroid Stim Horm) 1.42 mcIU/mL N 0.34-5.60 Acetaminophen 1 g/mL 4 Urinalysis Profile 08/12/2018 [facility] Urine Color Yellow [phone] Urine Appearance Clear Urine Specific [place] 1.017 N 1.010-1.030 Urine pH 6.0 N 5-9 Urine Urobilinogen Negative Negative Urine Ketones Negative Negative Urine Protein Negative Negative Urine Leukocytes Negative Negative Urine Blood Negative Negative Urine Nitrite Negative Negative Urine Bilirubin Negative Negative Urine Glucose Negative Negative Urine Drug 08/12/2018 [facility] Amphetamine Ur None Detected None Detect SCR ED & [phone] Screen Pain Clinic Barbiturates Urine Screen None Detected None Detect Benzodiazepine Urine Screen None Detected None Detect Urine Cannabinoids Screen None Detected None Detect Urine Cocaine Screen Presumptive Posi <SEE NOTE> Abnormal None Detect 5 Urine Opiates Screen None Detected None Detect Urine Phencyclidine Screen None Detected None Detect 6 Urine Drug Screen Inhouse 07/31/2018 In House Ua Cocaine + Ua Opiates - Ua Amphetamines - Urine Methanphetamines - Urine Benzodiazepines QN Newton - Urine Oxycodone QL + Ua Inhouse 07/31/2018 In House Ua Glucose - 7 Ua Bilirubin mod Ua Ketones - Ua Specific [place] 1.030 Ua Blood lg Ua PH 5.0 Ua Protein 1+ Ua Urobilinogen - Ua Nitrite - Ua Leukocytes - Laboratory test finding 07/16/2018 [facility] HCG < 0.60 mIU/ mL 8 [phone] Erythrocyte Sed Rate 16 mm/Hr High 0-14 CBC Auto Diff 07/16/2018 [facility] White Blood Count 10.8 10^3/uL N 3.5-10.8 [phone] Red Blood Count 5.00 10^6/uL N 4.00-5.40 [...] Red Blood Cells % 0 Laboratory test finding 07/15/2018 [facility] Cytology SEE RESULT BELOW 9 [phone] Urinalysis Profile 07/12/2018 [facility] Urine Color Velia [phone] Urine Appearance Cloudy Urine Specific [place] 1.026 N 1.010-1.030 Urine pH 6.0 N [...] Present Abnormal Absent CBC Auto Diff 07/12/2018 [facility] White Blood 12.7 10^3/uL High 3.5 -10.8 [phone] Count Red Blood Count 4.98 10^6/uL N [...] Blood Cells % 0.1 Laboratory test 07/12/2018 [facility] Lactic Acid 1.5 mmol/L N 0.5- 2.0 10 finding [phone] Urine Drug SCR 07/12/2018 [facility] Amphetamine Ur None None Detect ED & Pain [phone] Screen Detected Clinic Barbiturates Urine Screen None Detected None Detect Benzodiazepine Urine Screen None Detected None Detect Urine Cannabinoids Screen Presumptive Posi <SEE NOTE> Abnormal None Detect 11 Urine Cocaine Screen Presumptive Posi <SEE NOTE> Abnormal None Detect 12 Urine Opiates Screen None Detected None Detect Urine Phencyclidine Screen None Detected None Detect 13 Comp Metabolic Panel 07/12/2018 [facility] Sodium 138 mmol/L N 135- 145 [phone] Potassium 3.7 mmol/L N 3.5-5.0 Chloride 106 [...] Non- 98.2 >60 Egfr 118.8 >60 14 Laboratory test finding 07/12/2018 [facility] Amylase 45 U/L N 29- 103 [phone] Lipase 45 U/L N 11.0-82.0 C Reactive Protein 15.35 mg/L High <8.01 HCG 0.83 mIU/mL 15 Urine Culture And 07/12/2018 [facility] Urine Culture SEE RESULT 16 Sensitivities [phone] BELOW Laboratory test 07/12/2018 [facility] Gardnerella/Yeas SEE RESULT 17 finding [phone] t: Vaginal Dna BELOW Trichomonas Vaginalis Rna Negative Negative 18 GC/Chlamydia 07/12/2018 [facility] Chlamydia Negative Negative Amplified Rna [phone] trachomatis Rna Neisseria gonorrhoeae (GC) Rna Negative Negative CBC Auto Diff 06/20/2018 [facility] White Blood 11.7 10^3/uL High 3.5 -10.8 [phone] Count Red Blood Count 5.61 10^6/uL High [...] Blood Cells % 0 Laboratory test 06/20/2018 [facility] Vitamin D Total 19.4 ng/mL Low 20-50 19 finding [phone] 25(Oh) Lyme Disease Serology Negative Negative 20 Anti Nuclear Antibody 0.2 U 21 Rheumatoid Factor < 10 IU/mL N <15 22 Cyclic Citrullinated Pep Igg <15.6 U 23 Comp Metabolic Panel 06/20/2018 [facility] Sodium 136 mmol/L N 135- 145 [phone] Potassium 4.0 mmol/L N 3.5-5.0 Chloride 103 [...] Egfr Non- 98.2 >60 Egfr 118.8 >60 24 Laboratory test 06/20/2018 [facility] Erythrocyte Sed 32 mm/Hr High 0 -14 25 finding [phone] Rate C Reactive Protein 7.18 mg/L N <8.01 26 Lipid Profile 06/20/2018 [facility] Triglycerides 367 mg/dL 27 (Trig/Chol/HDL) [phone] Cholesterol 263 mg/dL 28 HDL Cholesterol 43.0 mg/dL 29 LDL Cholesterol 147 mg/dL 30 Laboratory test 06/20/2018 [facility] Hemoglobin A1c 6.2 % High 4.0- 5.6 31 finding [phone] (Glyco HGB) TSH (Thyroid Stim Horm) 1.36 mcIU/mL N 0.34-5.60 32 Urine Drug Screen Inhouse 06/12/2018 In House Ua Cocaine + Ua Opiates - Ua Amphetamines - Urine Methanphetamines - Urine Benzodiazepines QN Newton - Urine Oxycodone QL - Urine Drug Screen Inhouse 05/27/2018 In House Ua Cocaine - Ua Opiates - Ua Amphetamines - Urine Methanphetamines - Urine Benzodiazepines QN [place] - Urine Oxycodone QL - Urine Drug 05/08/2018 [facility] Amphetamine Ur None Detected None Detect SCR ED & [phone] Screen Pain Clinic Barbiturates Urine Screen None Detected None Detect Benzodiazepine Urine Screen Presumptive Posi <SEE NOTE> Abnormal None Detect 33 Urine Cannabinoids Screen None Detected None Detect Urine Cocaine Screen Presumptive Posi <SEE NOTE> Abnormal None Detect 34 Urine Opiates Screen None Detected None Detect Urine Phencyclidine Screen None Detected None Detect 35 Comp Metabolic Panel 05/08/2018 [facility] Sodium 137 mmol/L N 135- 145 [phone] Potassium 3.8 mmol/L N 3.5-5.0 Chloride 103 [...] Egfr Non- 94.9 >60 Egfr 114.8 >60 36 Laboratory test finding 05/08/2018 [facility] HCG < 0.60 mIU/ mL 37 [phone] Acetaminophen < 15 g/mL 38 Alcohol < 10 mg/dL N <10 Salicylate < 2.50 mg/dL <30 TSH (Thyroid Stim Horm) 1.07 mcIU/mL N 0.34-5.60 CBC Auto Diff 05/08/2018 [facility] White Blood 12.3 10^3/uL High 3.5 -10.8 [phone] Count Red Blood Count 5.06 10^6/uL N [...] Blood Cells % 0.2 Urinalysis Profile 05/08/2018 [facility] Urine Color Yellow [phone] Urine Appearance Cloudy Urine Specific [place] 1.011 N 1.010-1.030 Urine pH 8.0 N [...] Present Abnormal Absent Urine Culture And 05/08/2018 [facility] Urine Culture SEE RESULT 39 Sensitivities [phone] BELOW Urine Drug Screen 04/25/2018 In House Ua Cocaine - Inhouse Ua Opiates - Ua Amphetamines - Urine Methanphetamines - Urine Benzodiazepines QN [place] - Urine Oxycodone QL - Urine Drug Screen Inhouse 04/11/2018 In House Ua Cocaine - Ua Opiates - Ua Amphetamines - Urine Methanphetamines - Urine Benzodiazepines QN [place] - Urine Oxycodone QL - Pthi 01/29/2018 [facility] Calcium (PTH Intact) 9.0 mg/dL N 8.6-10.3 [phone] PTH Intact 5.3 pmol/L N 1.3-9.3 Laboratory test 01/29/2018 [facility] Insulin Level 74.9 mcIU/mL High 2.0-16.0 finding [phone] Basic Metabolic 01/29/2018 [facility] Sodium 138 mmol/L N 135-145 Panel [phone] Potassium 4.3 mmol/L N 3.5-5.0 Chloride 106 mmol/L N 101-111 Co2 Carbon Dioxide 24 mmol/L N 22-32 Anion Gap 8 mmol/L N 2-11 Glucose 106 mg/dL High 70-100 Blood Urea Nitrogen 16 mg/dL N 6-24 Creatinine 0.89 mg/dL N 0.51-0.95 BUN/Creatinine Ratio 18.0 N 8-20 Calcium 9.0 mg/dL N 8.6-10.3 Egfr Non- 69.6 >60 Egfr 84.2 >60 40 Laboratory test 01/29/2018 [facility] TSH (Thyroid 1.55 mcIU/mL N 0.34-5.60 finding [phone] Stim Horm) Ua Inhouse 01/27/2018 In House Ua Glucose - 41 Ua Bilirubin - Ua Ketones - Ua Specific [place] 1.020 Ua Blood sm/ 1+ Ua PH [...] Culture Throat negative Basic Metabolic Panel 11/28/2017 [facility] Sodium 134 mmol/L Low 135 -145 [phone] Potassium 4.3 mmol/L N 3.5-5.0 Chloride 101 mmol/L N 101-111 Co2 Carbon Dioxide 24 mmol/L N 22-32 Anion Gap 9 mmol/L N 2-11 Glucose 104 mg/dL High 70-100 Blood Urea Nitrogen 15 mg/dL N 6-24 Creatinine 0.70 mg/dL N 0.51-0.95 BUN/Creatinine Ratio 21.4 High 8-20 Calcium 9.3 mg/dL N 8.6-10.3 Egfr Non- 91.8 >60 Egfr 118.0 >60 42 CBC Auto Diff 11/28/2017 [facility] White Blood Count 9.6 10^3/uL N 3.5-10.8 [phone] Red Blood Count 4.54 10^6/uL N 4.00-5.40 [...] Red Blood Cells % 0.1 Laboratory test 11/28/2017 [facility] Erythrocyte Sed 29 mm/Hr High 0 -14 finding [phone] Rate Lyme Disease Serology Negative Negative 43 TSH (Thyroid Stim Horm) 1.95 mcIU/mL N 0.34-5.60 Celiac Panel 11/28/2017 [facility] Tissue Transglutaminase IgA <1.2 U/ mL 44 [phone] Ab Immunoglobulin A 358 mg/dL Abnormal 61 - 356 Celiac Interpretation See Comment 45 Laboratory test finding 09/26/2017 In House Hemoglobin A1c 6.0 Urinalysis Profile 06/24/2017 [facility] Urine Color Yellow [phone] Urine Appearance Cloudy Urine Specific [place] 1.021 N 1.010-1.030 Urine pH 6.0 N [...] Cell Present Abnormal Absent Urine Drug 06/24/2017 [facility] Amphetamine Ur None Detected None Detect SCR ED & [phone] Screen Pain [facility] Barbiturates Urine Screen None Detected None Detect Benzodiazepine Urine Screen None Detected None Detect Urine Cannabinoids Screen None Detected None Detect Urine Cocaine Screen None Detected None Detect Urine Opiates Screen None Detected None Detect Urine Phencyclidine Screen None Detected None Detect 46 Laboratory test 06/24/2017 [facility] Urine Culture And SEE RESULT 47 finding [phone] Sensitivities BELOW CBC Auto Diff 06/24/2017 [facility] White Blood Count 10.4 10^3/uL N 3.5-10 [phone] .8 Red Blood Count 4.85 10^6/uL N [...] Red Blood Cells % 0.1 Laboratory test finding 06/24/2017 [facility] Lactic Acid 1.9 mmol/L N 0.5-2.0 48 [phone] Comp Metabolic Panel 06/24/2017 [facility] Sodium 134 mmol/L N 133- 145 [phone] Potassium 3.6 mmol/L N 3.5-5.0 Chloride 100 [...] >60 Egfr 118.6 >60 49 Laboratory test finding 06/24/2017 [facility] HCG 0.75 mIU/ mL 50 [phone] Acetaminophen < 15 g/mL 51 Alcohol < 10 mg/dL N <10 Salicylate < 2.50 mg/dL <30 CBC Auto Diff 06/12/2017 [facility] White Blood 12.6 10^3/uL High 3.5 -10.8 [phone] Count Red Blood Count 4.39 10^6/uL N [...] 0-2 Nucleated Red Blood Cells % 0 Laboratory test 06/12/2017 [facility] Hemoglobin A1c 6.3 % High 4.0- 5.6 52 finding [phone] (Glyco HGB) Laboratory test 06/12/2017 [facility] HCG 0.80 53 finding [phone] mIU/mL Basic Metabolic 06/12/2017 [facility] Sodium 137 N 133-145 Panel [phone] mmol/L Potassium 3.7 mmol/L N 3.5-5.0 Chloride 103 mmol/L N 101-111 Co2 Carbon Dioxide 27 mmol/L N 22-32 Anion Gap 7 mmol/L N 2-11 Glucose 106 mg/dL High 70-100 Blood Urea Nitrogen 10 mg/dL N 6-24 Creatinine 0.72 mg/dL N 0.51-0.95 BUN/Creatinine Ratio 13.9 N 8-20 Calcium 8.7 mg/dL N 8.6-10.3 Egfr Non- 89.3 >60 Egfr 114.8 >60 54 1 It is recognized that currently available assays for the detection of antibodies to HIV-1 and/or HIV-2 may not detect all infected individuals. HIV antibodies may be undetectable in some stages of the infection and in some clinical conditions. The performance of this assay has not been established for populations of infants or children. Assayed by Chemiluminescence Microparticle Immunoassay on the Siemens Advia Centaur CP. Values obtained with different methods or kits cannot be used interchangeably.The diagnostic specificity of the ADVIA Centaur 1/O/2 Enhanced assay in the low risk population was 99.90% (6052/6058) with a 95% confidence interval of 99.78 to 99.96%. 2 Because ethnic data is not always readily [...] 15-29 5 Kidney failure <15 (or dialysis) 3 Because ethnic data is not always readily [...] 15-29 5 Kidney failure <15 (or dialysis) 4 Therapeutic concentration: <50 ug/mL Toxic concentration: >120 ug/mL 5 Presumptive Positive Presumptive positive results are unconfirmed. 6 The urine specimen was tested at the listed cutoffs: Drug class test level (ng/mL) Amphetamines 500 Barbiturates 200 Benzodiazepine metabolites 200 Cocaine metabolites 150 Cannabinoids 50 Opiates 300 Pcp 25 Specimen was received without chain of custody. Results should be used for medical purposes only. 7 void, clear, gold 8 <5.0 Negative 5.0 - 25.0 Indeterminate (Repeat testing recommended after 72 hours) >25.0 Positive Perimenopausal women can display HCG levels of up to 20 mIU/mL 9 SEE RESULT BELOW Name: ABRIL NGUYEN : [address]: Katy SEGOVIA Acct: [id number] Unit: [id number] AGE: 42 Location: [facility] Re07/15/18 SEX: F Status: REG REF SPEC: [id number] TYLER: 07/15/18-[address] [facility] [address]: Katy SEGOVIA REQ: [id number] RECD: 07/16/18-1251 STATUS: SOUT _ ORDERED: TP IMAGE ANALYS, HPV/Thin Prep COMMENTS: [id number] Negative for Intraepithelial lesion or Malignancy Date Time Test Result Flag (u) Normal Range 07/15/18 163 @ HPV RNA Negative Negative @ @ [...] System. Due to cytologic findings at the stick feeder microscope, comprehensive manual rescreening by a Work Measurement Engineer may be required. The Pap Smear is [...] years. END OF REPORT DEPARTMENT OF PATHOLOGY, [address] [place] [address] Rashid Mcintosh M.D. Director [facility] # [id number] 10 [facility] Severe Sepsis and Septic Shock Management Bundle [...] 5 Kidney failure <15 (or dialysis) 15 <5.0 Negative 5.0 - 25.0 Indeterminate (Repeat testing recommended after 72 hours) >25.0 Positive Perimenopausal women can display HCG levels of up to 20 mIU/mL 16 SEE RESULT BELOW Name: ABRIL NGUYEN : [address]: Je Rowland MD Acct: [id number] Unit: [id number] AGE: 42 Location: ED Re07/12/18 SEX: F Status: DEP ER SPEC: [id number] TYLER: 07/12/[address]: Kay Dai MD REQ: [id number] RECD: 07/12/18 STATUS: CONNIE GLOVER DR: Joseph Hagen MD _ SOURCE: URINE SPDESC: ORDERED: Urine Culture Procedure Result Reported Site Urine Culture Final 07/14/18- 0850 ML Organism 1 ESCHERICHIA COLI [place] Count >100,000 (Many) CFU/ML 1. ESCHERICHIA COLI [...] . END OF REPORT DEPARTMENT OF PATHOLOGY, [address] [place] [address] Rashid Mcintosh M.D. Director [facility] # [id number] 17 SEE RESULT BELOW Name: ABRIL NGUYEN Pool : [address]: Je Rowland MD Acct: [id number] Unit: [id number] AGE: 42 Location: ED Re07/12/18 SEX: F Status: DEP ER SPEC: [id number] TYLER: 07/12/[address] [facility] [address]: Kay Dai MD REQ: [id number] RECD: 07/12/18 STATUS: COMP OTHR DR: Joseph Hagen MD _ SOURCE: VAGINAL [...] . END OF REPORT DEPARTMENT OF PATHOLOGY, [address] [place] [address] Rashid Mcintosh M.D. Director [facility] # [id number] 18 GC/Chlamydia Source?: Endocervical Trichomonas Source: Endocervical 19 FASTING 20 No evidence of antibodies to B. burgdorferi detected. False negative results may occur in recently infected patients (<=2 weeks) due to low or undetectable antibody levels to B. burgdorferi. If recent exposure is suspected, a second sample should be collected and tested in 2-4 weeks. Test Performed by: [facility] [place] [address] 21 REFERENCE VALUE <=1.0 (Negative) Test Performed by: [facility] [place] [address] 22 FASTING 23 REFERENCE VALUE <20.0 (Negative) Test Performed by: [facility] [place] [address] 24 Because ethnic data is not always readily [...] 15-29 5 Kidney failure <15 (or dialysis) 25 FASTING 26 FASTING 27 Desirable: <150 Borderline High: 150-199 High: 200-499 Very High: >500 28 Desirable: <200 Borderline High: 200-239 High: >239 29 Low: <40 Desirable: 40-60 High: >60 30 Desirable: <100 Near Optimal: 100-129 Borderline High: 130-159 High: 160-189 Very High: >189 31 Therapeutic target for the treatment of diabetes mellitus patients is <7% HBA1C, and in selective patients <6.0%. Please refer to [place] [employer] diabetic care guidelines for further information. 32 FASTING 33 Presumptive Positive Presumptive positive results are unconfirmed. 34 Presumptive Positive Presumptive positive results are unconfirmed. 35 The urine specimen was tested at the listed cutoffs: Drug class test level (ng/mL) Amphetamines 500 Barbiturates 200 Benzodiazepine metabolites 200 Cocaine metabolites 150 Cannabinoids 50 Opiates 300 Pcp 25 Specimen was received without chain of custody. Results should be used for medical purposes only. 36 Because ethnic data is not always readily [...] 15-29 5 Kidney failure <15 (or dialysis) 37 <5.0 Negative 5.0 - 25.0 Indeterminate (Repeat testing recommended after 72 hours) >25.0 Positive Perimenopausal women can display HCG levels of up to 20 mIU/mL 38 Therapeutic concentration: <50 ug/mL Toxic concentration: >120 ug/mL 39 SEE RESULT BELOW Name: ABRIL NGUYEN Pool : [address]: Silvio Madrid MD Acct: [id number] Unit: [id number] AGE: 42 Location: [facility] Re05/08/18 SEX: F Status: ADM IN SPEC: [id number] TYLER: 05/08/[address] [facility] [address]: Jimmy Deshpande MD REQ: [id number] RECD: 05/08/18 STATUS: CONNIE GLOVER DR: Joseph Hagen MD _ [facility]: Urine Culture Procedure Result Reported Site Urine Culture Final 05/10/18- 925 ML No growth of clinically significant organisms * ML - Main Lab . END OF REPORT DEPARTMENT OF PATHOLOGY, [address] [place] [address] Rashid Mcintosh M.D. Director [facility] # [id number] 40 Because ethnic data is not always [...] 5 Kidney failure <15 (or dialysis) 41 roberto melton gold 42 Because ethnic data is not always readily [...] 15-29 5 Kidney failure <15 (or dialysis) 43 No evidence of antibodies to B. burgdorferi detected. False negative results may occur in recently infected patients (<=2 weeks) due to low or undetectable antibody levels to B. burgdorferi. If recent exposure is suspected, a second sample should be collected and tested in 2-4 weeks. Test Performed by: [facility] [address] [id number] 44 REFERENCE VALUE <4.0 (Negative) Test Performed by: [place] [id number] Negative serology. Celiac disease unlikely. However, approximately 10% of patients with celiac disease are seronegative. Also, patients who are already adhering to a gluten-free diet may be seronegative. If celiac disease is highly clinically suspected, consider HLA-DQ typing. Test Performed by: [place] [id number] 46 The urine specimen was tested at the listed cutoffs: Drug class test level (ng/mL) Amphetamines 500 Barbiturates 200 Benzodiazepine metabolites 200 Cocaine metabolites 150 Cannabinoids 50 Opiates 300 Pcp 25 Specimen was received without chain of custody. Results should be used for medical purposes only. 47 SEE RESULT BELOW Name: ABRIL NGUYEN : [address]: Je Duarte MD Acct: [id number] Unit: [id number] AGE: 41 Location: ED Re06/24/17 SEX: F Status: DEP ER SPEC: [id number] TYLER: 06/24/[address]: Je Duarte MD REQ: [id number] RECD: 06/24/17 STATUS: CONNIE GLOVER DR: Joseph Hagen MD _ SOURCE: URINE SPDESC: ORDERED: Urine Culture Procedure Result Reported Site Urine Culture Final 06/26/17- 12 ML No growth of clinically significant organisms * ML - MAIN LAB (PSC1) . END OF REPORT * ML=Testing performed at Main Lab DEPARTMENT OF PATHOLOGY, [address] [place] [address] Rashid Mcintosh M.D. Director [facility] # [id number] 48 [facility] Severe Sepsis and Septic Shock Management Bundle Measure requires all lactic acids initially measuring >2.0 mmol/L be repeated. 49 Because ethnic data is not always [...] 5 Kidney failure <15 (or dialysis) 50 <5.0 Negative 5.0 - 25.0 Indeterminate (Repeat testing recommended after 72 hours) >25.0 Positive Perimenopausal women can display HCG levels of up to 20 mIU/mL 51 Therapeutic concentration: <50 ug/mL Toxic concentration: >120 ug/mL 52 Therapeutic target for the treatment of diabetes mellitus patients is <7% HBA1C, and in selective patients <6.0%. Please refer to [place] [employer] diabetic care guidelines for further information. 53 <5.0 Negative 5.0 - 25.0 Indeterminate (Repeat testing recommended after 72 hours) >25.0 Positive Perimenopausal women can display HCG levels of up to 20 mIU/mL 54 Because ethnic data is not always readily [...] (or dialysis) Procedures Date Code Description Status 12/25/2018 72955 Spirometry Completed 12/15/2018 53829 X-Ray Chest 2 V Completed 06/04/2018 72426349 Mammogram Completed 01/27/2018 72605 Electrocardiogram Complete Completed 01/08/2018 94804 SC/Im Injections Completed 06/13/2017 69274 Visual Acuity Screening Test Completed 05/13/2017 14782 Electrocardiogram Complete Completed Encounters Type Date Location Provider Dx Diagnosis Office Visit 01/02/2019 Main Office Bhupendra Nunes, M51.16 Intervertebral disc 11:45a D.O. disorders w radiculopathy, lumbar region F43.23 Adjustment disorder with mixed anxiety and depressed mood I10 Essential (primary) hypertension F17.210 Nicotine dependence, cigarettes, uncomplicated F14.11 Cocaine abuse, in remission M54.12 Radiculopathy, cervical region G89.4 Chronic pain syndrome E66.9 Obesity, unspecified G47.33 Obstructive sleep apnea (adult) (pediatric) J45.909 Unspecified asthma, uncomplicated M54.5 Low back pain Office Visit 12/30/2018 2:20p Main Office Katy Sol, P.A. R05 Cough F43.23 Adjustment disorder with mixed anxiety and depressed mood I10 Essential (primary) hypertension F17.210 Nicotine dependence, cigarettes, uncomplicated F14.11 Cocaine abuse, in remission Office Visit 12/25/2018 4:40p Main Office Katy Sol, P.A. R06.2 Wheezing R05 Cough F43.23 Adjustment disorder with mixed anxiety and depressed mood I10 Essential (primary) hypertension F17.210 Nicotine dependence, cigarettes, uncomplicated J30.9 Allergic rhinitis, unspecified Office Visit 12/15/2018 3:20p Main Office Katy Sol, F43.23 Adjustment disorder P.A. with mixed anxiety and depressed mood R05 Cough I10 Essential (primary) hypertension F17.210 Nicotine dependence, cigarettes, uncomplicated Office Visit 12/05/2018 4:00p Main Office Katy Sol F43.23 Adjustment disorder P.A. with mixed anxiety and depressed mood R05 Cough I10 Essential (primary) hypertension Office Visit 11/13/2018 3:00p Main Office Katy Sol F43.23 Adjustment disorder P.A. with mixed anxiety and depressed mood M54.12 Radiculopathy, cervical region R05 Cough J30.9 Allergic rhinitis, unspecified Office Visit 10/10/2018 4:20p Main Office Katy Sol, J02.9 Acute pharyngitis, P.A. unspecified J01.90 Acute sinusitis, unspecified Office Visit 09/29/2018 11:40a Main Office Katy Sol I10 Essential ( primary) P.A. hypertension F43.23 Adjustment disorder with mixed anxiety and depressed mood F14.14 Cocaine abuse with cocaine-induced mood disorder M54.12 Radiculopathy, cervical region Z71.51 Drug abuse counseling and surveillance of drug abuser Office Visit 2018 1:40p Main Office Katy Sol, M25.579 Pain in unspecified P.A. ankle and joints of unspecified foot I10 Essential (primary) hypertension F43.23 Adjustment disorder with mixed anxiety and depressed mood M54.12 Radiculopathy, cervical region Z11.59 Encounter for screening for other viral diseases Z11.1 Encounter for screening for respiratory tuberculosis Z02.2 Encounter for exam for admission to residential institution Office Visit 08/18/2018 3:00p Main Office Katy Sol, I10 Essential ( [...] Office Visit 07/15/2018 2:00p Main Office Katy Sol R10.30 Lower abdominal P.A. pain, unspecified Z12.39 [...] 06/24/2018 1:30p Main Office Srinivas Hagen1.20 Opioid dependenceJoseph M.D. uncomplicated Z71.51 Drug abuse counseling and [...] 05/27/2018 2:00p Main Office Xiao F11.20 Opioid dependenceJoseph M.D. uncomplicated F14.10 Cocaine abuse, uncomplicated Office [...] 04/25/2018 11:30a Main Office Xiao F11.20 Opioid dependenceJoseph M.D. uncomplicated R53.83 Other fatigue Office Visit 04/18/2018 8:40a Main Office Joseph Hagen G89.4 Chronic pain M.D. syndrome F11.20 Opioid dependence, uncomplicated R53.83 Other fatigue Office Visit 04/14/2018 3:00p Main Office Xiao F11.20 Opioid dependenceJoseph M.D. uncomplicated R53.83 Other fatigue Office Visit 04/11/2018 4:00p Main Office Xiao F11.20 Opioid dependenceJoseph M.D. uncomplicated R53.83 Other fatigue Office Visit 04/09/2018 3:45p Main Office Xiao F11.20 Opioid dependenceJoseph M.D. uncomplicated Office Visit 04/03/2018 3:20p Main Office Katy Sol G47.33 Obstructive sleep P.A. apnea (adult) (pediatric) E66.9 Obesity, unspecified F17.210 Nicotine dependence, cigarettes, uncomplicated Z79.899 Other group home (current) drug therapy Office Visit 03/20/2018 9:20a Main Office Katy Sol, L03.115 Cellulitis of P.A. right lower limb G47.33 Obstructive sleep apnea (adult) (pediatric) E66.9 Obesity, unspecified I10 Essential (primary) hypertension D64.9 Anemia, unspecified R53.1 Weakness Z23 Encounter for immunization Z41.8 Encntr for oth proc for purpose oth [facility] Z59.4 Lack of adequate food and safe drinking water Z71.3 Dietary counseling and surveillance Z68.41 Body mass index (BMI) 40.0-44.9, adult Office Visit 02/11/2018 9:00a Main Office Katy Sol, L03.115 Cellulitis of right P.A. lower limb Office Visit 02/04/2018 9:00a Main Office Katy Sol E66.9 Obesity, P.A. unspecified L03.115 Cellulitis of [...] region Office Visit 11/21/2017 9:20a Main Office Abram Gonzáles.A. 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 syndrome R73.03 Prediabetes I10 Essential (primary) hypertension Z71.3 Dietary counseling and surveillance Office Visit 09/26/2017 9:20a Main Office Katy Sol P.A. 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 not intractable, [...] tuberculosis Office Visit 05/13/2017 4:20p Main Office Danii Gonzáles R07.89 Other chest pain I10 Essential (primary) hypertension G89.4 Chronic pain syndrome F43.23 Adjustment disorder with mixed anxiety and depressed mood E66.9 Obesity, unspecified K21.9 Gastro-esophageal reflux disease without esophagitis D64.9 Anemia, unspecified Plan of Treatment Future Appointment(s):01/27/2019 8:40 am - Danii Gonzáles at Main [id number] 3:00 pm - Danii Gonzáles at Main [id number]/31/2018 - Danii GonzálesN93.9 Abnormal uterine and vaginal bleeding, unspecifiedComments: oxycodone and cocaine noted in preliminary testFollow up:improved: if cont to ahve prob return to the [id number] Essential (primary) hypertensionComments:pt advised to report cp, change in angina , sob Comply with diet and exercise. Lose weight and watch salt in diet.start the new pill with both meds in the same pillsFollow up:much better today , cont same meds and ttfwaF67.23 Adjustment disorder with mixed anxiety and depressed moodFollow up:cont with current medications, happy that depression is improving and meds working Today' s Goal: find the CPAP machine Great with going to [facility] at [facility]!N39.0 Urinary tract infection, site not specifiedComments:pt has just started menses, will not culture as pt had no sxs yhufjJ16.14 Cocaine abuse with cocaine- induced mood oulgpbwaN23.14 Opioid abuse with opioid-induced mood disorder
--- OUTSIDE RECORDS SUMMARY | 2019-01-03 06:29 | XMS REPORT | Continuity of Care Document ---
:1975 External Reference #:[id number] Author Name Bhupendra Nunes D.O. 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 Currently Working at [employer] 2018 Right-handed Abuse No history [...] Patient is currently sexually active Age 1st Silt 18 Years Old Allergies, Adverse Reactions, Alerts [...] one to 18units Silcorob, two puffs by Shaniuqe Ruiz 9 108(90Base) mcg/Act mouth every 4 [...] Lomotil 1-2 qid prn 30tabs R19.7 Anthony Barron 07/12/2018 - 2.5mg;0.025 mg diarrhea Shanique Upton [...] 7 days [place] 1 [place] [facility] [place] - 300mg Capsules bedtime for 1 Shanique Ruiz 04/18/2018 week then stop it; for pain Suboxone 1 film by mouth 30units F11.20 Silcoff, 04/14/2018 - 2-0.5mg Film every morning; Shanique Ruiz 06/24/2018 rx due 05/28/18; suboxone prescriber #[id number] Suboxone 1 film by mouth 2units F11.20 Silcoff, 04/11/2018 - 2-0.5mg Film every morning Shanique Ruiz 04/14/2018 starting on 04/13/18 (use remaining 8/2 film for 03/18 dose); suboxone prescriber #[id number] Suboxone 1/2 film by 2rivas F11.20 Xiao, 04/10/2018 - 8-2mg Film mouth now; may Shanique Ruiz 04/11/2018 take another 1/2 film today after 4 or more hours; take 1/2 film tomorrow am; suboxone prescriber# [id number] Suboxone 1/2 film by 2films F11.20 Xiao, 04/09/2018 - 8-2mg Film mouth tonightJoseph M.D. 04/10/2018 again tomorrow am and Saturday am; may take 1 more dose Marion stiven; suboxone prescriber# [id number] Nicoderm CQ 1 patch per day [id number] [...] Dressing daily for wound Shanique Ruiz 03/16/2018 [facility] Gel care management right ankle Cephalexin 1 [...] CPT Code Status Date Vaccine Lot # [id number] Given 03/20/2018 Influenza Virus Vaccine, Quadrivalent, Split, [id number] Preservative Free 91253 Given 06/06/2017 MMR Virus Immunization [id number] Given 06/04/2017 Influenza Virus Vaccine, Quadrivalent, Split, [id number] Preservative Free 59046 Given 12/11/2016 Adacel or Boostrix, TDaP 81050 Given 12/11/2016 MMR Virus Immunization U-Flu Given 04/23/2016 Influenza,Unspecified U-Flu Given 04/02/2013 Influenza,Unspecified 60680 Given 02/27/2012 Flu, Split Virus 3Yrs Vital [...] Rapid Screen negative HIV 1/2 AB 09/23/2018 [facility] HIV 1 2 Nonreactive Nonreactive 1 Evaluation [phone] Antibody Hepatitis C 09/23/2018 [facility] HCV Index < 0.0 Index Antibody [phone] Hepatitis C Antibody Nonreactive Nonreactive Comp Metabolic Panel 09/14/2018 [facility] Sodium 136 mmol/L N 135- 145 [phone] Potassium 4.2 mmol/L N 3.5-5.0 Chloride 104 [...] Egfr 137.9 >60 2 Laboratory test 09/14/2018 [facility] C Reactive 5.52 mg/L N <8.01 finding [phone] Protein CBC No Diff 09/14/2018 [facility] White Blood 11.0 High 3.5-10.8 [phone] Count 10^3/uL Red Blood Count 4.74 10^6/uL [...] fL Low 7.4-10.4 CBC Auto Diff 08/12/2018 [facility] White Blood 12.2 10^3/uL High 3.5 -10.8 [phone] Count Red Blood Count 5.63 10^6/uL High [...] Cells % 0.1 Comp Metabolic Panel 08/12/2018 [facility] Sodium 136 mmol/L N 135- 145 [phone] Potassium 4.0 mmol/L N 3.5-5.0 Chloride 102 [...] 95.2 >60 3 Laboratory test finding 08/12/2018 [facility] Alcohol < 10 mg/dL N < 10 [phone] Salicylate < 2.50 mg/dL <30 TSH (Thyroid Stim Horm) 1.42 mcIU/mL N 0.34-5.60 Acetaminophen 1 g/mL 4 Urinalysis Profile 08/12/2018 [facility] Urine Color Yellow [phone] Urine Appearance Clear Urine Specific [place] 1.017 N 1.010-1.030 Urine pH 6.0 N 5-9 Urine Urobilinogen Negative Negative Urine Ketones Negative Negative Urine Protein Negative Negative Urine Leukocytes Negative Negative Urine Blood Negative Negative Urine Nitrite Negative Negative Urine Bilirubin Negative Negative Urine Glucose Negative Negative Urine Drug 08/12/2018 [facility] Amphetamine Ur None Detected None Detect SCR ED & [phone] Screen Pain Clinic Barbiturates Urine Screen None [...] - Urine Methanphetamines - Urine Benzodiazepines QN [place] - Urine Oxycodone QL + Ua Inhouse 07/31/2018 In House Ua Glucose - 7 Ua Bilirubin mod Ua Ketones - Ua Specific [place] 1.030 Ua Blood lg Ua PH 5.0 Ua Protein 1+ Ua Urobilinogen - Ua Nitrite - Ua Leukocytes - Laboratory test finding 07/16/2018 [facility] HCG < 0.60 mIU/ mL 8 [phone] Erythrocyte Sed Rate 16 mm/Hr High 0-14 CBC Auto Diff 07/16/2018 [facility] White Blood Count 10.8 10^3/uL N 3.5-10.8 [phone] Red Blood Count 5.00 10^6/uL N 4.00-5.40 [...] Cells % 0 Laboratory test finding 07/15/2018 [facility] Cytology SEE RESULT BELOW 9 [phone] Urinalysis Profile 07/12/2018 [facility] Urine Color Velia [phone] Urine Appearance Cloudy Urine Specific [place] 1.026 N 1.010-1.030 Urine pH 6.0 N [...] Present Abnormal Absent CBC Auto Diff 07/12/2018 [facility] White Blood 12.7 10^3/uL High 3.5 -10.8 [phone] Count Red Blood Count 4.98 10^6/uL N [...] Blood Cells % 0.1 Laboratory test 07/12/2018 [facility] Lactic Acid 1.5 mmol/L N 0.5- 2.0 10 finding [phone] Urine Drug SCR 07/12/2018 [facility] Amphetamine Ur None None Detect ED & Pain [phone] Screen Detected Clinic Barbiturates Urine Screen None Detected None Detect Benzodiazepine Urine Screen None Detected None Detect Urine Cannabinoids Screen Presumptive Posi <SEE NOTE> Abnormal None Detect 11 Urine Cocaine Screen Presumptive Posi <SEE NOTE> Abnormal None Detect 12 Urine Opiates Screen None Detected None Detect Urine Phencyclidine Screen None Detected None Detect 13 Comp Metabolic Panel 07/12/2018 [facility] Sodium 138 mmol/L N 135- 145 [phone] Potassium 3.7 mmol/L N 3.5-5.0 Chloride 106 [...] 118.8 >60 14 Laboratory test finding 07/12/2018 [facility] Amylase 45 U/L N 29- 103 [phone] Lipase 45 U/L N 11.0-82.0 C Reactive Protein 15.35 mg/L High <8.01 HCG 0.83 mIU/mL 15 Urine Culture And 07/12/2018 [facility] Urine Culture SEE RESULT 16 Sensitivities [phone] BELOW Laboratory test 07/12/2018 [facility] Gardnerella/Yeas SEE RESULT 17 finding [phone] t: Vaginal Dna BELOW Trichomonas Vaginalis Rna Negative Negative 18 GC/Chlamydia 07/12/2018 [facility] Chlamydia Negative Negative Amplified Rna [phone] trachomatis Rna Neisseria gonorrhoeae (GC) Rna Negative Negative CBC Auto Diff 06/20/2018 [facility] White Blood 11.7 10^3/uL High 3.5 -10.8 [phone] Count Red Blood Count 5.61 10^6/uL High [...] Blood Cells % 0 Laboratory test 06/20/2018 [facility] Vitamin D Total 19.4 ng/mL Low 20-50 19 finding [phone] 25(Oh) Lyme Disease Serology Negative Negative 20 Anti Nuclear Antibody 0.2 U 21 Rheumatoid Factor < 10 IU/mL N <15 22 Cyclic Citrullinated Pep Igg <15.6 U 23 Comp Metabolic Panel 06/20/2018 [facility] Sodium 136 mmol/L N 135- 145 [phone] Potassium 4.0 mmol/L N 3.5-5.0 Chloride 103 [...] Egfr 118.8 >60 24 Laboratory test 06/20/2018 [facility] Erythrocyte Sed 32 mm/Hr High 0 -14 25 finding [phone] Rate C Reactive Protein 7.18 mg/L N <8.01 26 Lipid Profile 06/20/2018 [facility] Triglycerides 367 mg/dL 27 (Trig/Chol/HDL) [phone] Cholesterol 263 mg/dL 28 HDL Cholesterol 43.0 mg/dL 29 LDL Cholesterol 147 mg/dL 30 Laboratory test 06/20/2018 [facility] Hemoglobin A1c 6.2 % High 4.0- 5.6 31 finding [phone] (Glyco HGB) TSH (Thyroid Stim Horm) 1.36 mcIU/mL N 0.34-5.60 32 Urine Drug Screen Inhouse 06/12/2018 In House Ua Cocaine + Ua Opiates - Ua Amphetamines - Urine Methanphetamines - Urine Benzodiazepines QN [place] - Urine Oxycodone QL - Urine Drug Screen Inhouse 05/27/2018 In House Ua Cocaine - Ua Opiates - Ua Amphetamines - Urine Methanphetamines - Urine Benzodiazepines QN [place] - Urine Oxycodone QL - Urine Drug 05/08/2018 [facility] Amphetamine Ur None Detected None Detect SCR ED & [phone] Screen Pain Clinic Barbiturates Urine Screen None Detected None Detect Benzodiazepine Urine Screen Presumptive Posi <SEE NOTE> Abnormal None Detect 33 Urine Cannabinoids Screen None Detected None Detect Urine Cocaine Screen Presumptive Posi <SEE NOTE> Abnormal None Detect 34 Urine Opiates Screen None Detected None Detect Urine Phencyclidine Screen None Detected None Detect 35 Comp Metabolic Panel 05/08/2018 [facility] Sodium 137 mmol/L N 135- 145 [phone] Potassium 3.8 mmol/L N 3.5-5.0 Chloride 103 [...] 114.8 >60 36 Laboratory test finding 05/08/2018 [facility] HCG < 0.60 mIU/ mL 37 [phone] Acetaminophen < 15 g/mL 38 Alcohol < 10 mg/dL N <10 Salicylate < 2.50 mg/dL <30 TSH (Thyroid Stim Horm) 1.07 mcIU/mL N 0.34-5.60 CBC Auto Diff 05/08/2018 [facility] White Blood 12.3 10^3/uL High 3.5 -10.8 [phone] Count Red Blood Count 5.06 10^6/uL N [...] Blood Cells % 0.2 Urinalysis Profile 05/08/2018 [facility] Urine Color Yellow [phone] Urine Appearance Cloudy Urine Specific [place] 1.011 N 1.010-1.030 Urine pH 8.0 N [...] Present Abnormal Absent Urine Culture And 05/08/2018 [facility] Urine Culture SEE RESULT 39 Sensitivities [phone] BELOW Urine Drug Screen 04/25/2018 In House Ua Cocaine - Inhouse Ua Opiates - Ua Amphetamines - Urine Methanphetamines - Urine Benzodiazepines QN [place] - Urine Oxycodone QL - Urine Drug Screen Inhouse 04/11/2018 In House Ua Cocaine - Ua Opiates - Ua Amphetamines - Urine Methanphetamines - Urine Benzodiazepines QN [place] - Urine Oxycodone QL - Pthi 01/29/2018 [facility] Calcium (PTH Intact) 9.0 mg/dL N 8.6-10.3 [phone] PTH Intact 5.3 pmol/L N 1.3-9.3 Laboratory test 01/29/2018 [facility] Insulin Level 74.9 mcIU/mL High 2.0-16.0 finding [phone] Basic Metabolic 01/29/2018 [facility] Sodium 138 mmol/L N 135-145 Panel [phone] Potassium 4.3 mmol/L N 3.5-5.0 Chloride 106 mmol/L N 101-111 Co2 Carbon Dioxide 24 mmol/L N 22-32 Anion Gap 8 mmol/L N 2-11 Glucose 106 mg/dL High 70-100 Blood Urea Nitrogen 16 mg/dL N 6-24 Creatinine 0.89 mg/dL N 0.51-0.95 BUN/Creatinine Ratio 18.0 N 8-20 Calcium 9.0 mg/dL N 8.6-10.3 Egfr Non- 69.6 >60 Egfr 84.2 >60 40 Laboratory test 01/29/2018 [facility] TSH (Thyroid 1.55 mcIU/mL N 0.34-5.60 finding [phone] Stim Horm) Ua Inhouse 01/27/2018 In House Ua Glucose - 41 Ua Bilirubin - Ua Ketones - Ua Specific [place] 1.020 Ua Blood sm/ 1+ Ua PH [...] Culture Throat negative Basic Metabolic Panel 11/28/2017 [facility] Sodium 134 mmol/L Low 135 -145 [phone] Potassium 4.3 mmol/L N 3.5-5.0 Chloride 101 mmol/L N 101-111 Co2 Carbon Dioxide 24 mmol/L N 22-32 Anion Gap 9 mmol/L N 2-11 Glucose 104 mg/dL High 70-100 Blood Urea Nitrogen 15 mg/dL N 6-24 Creatinine 0.70 mg/dL N 0.51-0.95 BUN/Creatinine Ratio 21.4 High 8-20 Calcium 9.3 mg/dL N 8.6-10.3 Egfr Non- 91.8 >60 Egfr 118.0 >60 42 CBC Auto Diff 11/28/2017 [facility] White Blood Count 9.6 10^3/uL N 3.5-10.8 [phone] Red Blood Count 4.54 10^6/uL N 4.00-5.40 [...] Blood Cells % 0.1 Laboratory test 11/28/2017 [facility] Erythrocyte Sed 29 mm/Hr High 0 -14 finding [phone] Rate Lyme Disease Serology Negative Negative 43 TSH (Thyroid Stim Horm) 1.95 mcIU/mL N 0.34-5.60 Celiac Panel 11/28/2017 [facility] Tissue Transglutaminase IgA <1.2 U/ mL 44 [phone] Ab Immunoglobulin A 358 mg/dL Abnormal 61 - 356 Celiac Interpretation See Comment 45 Laboratory test finding 09/26/2017 In House Hemoglobin A1c 6.0 Urinalysis Profile 06/24/2017 [facility] Urine Color Yellow [phone] Urine Appearance Cloudy Urine Specific [place] 1.021 N 1.010-1.030 Urine pH 6.0 N [...] Cell Present Abnormal Absent Urine Drug 06/24/2017 [facility] Amphetamine Ur None Detected None Detect SCR ED & [phone] Screen Pain Clinic Barbiturates Urine Screen None Detected None Detect Benzodiazepine Urine Screen None Detected None Detect Urine Cannabinoids Screen None Detected None Detect Urine Cocaine Screen None Detected None Detect Urine Opiates Screen None Detected None Detect Urine Phencyclidine Screen None Detected None Detect 46 Laboratory test 06/24/2017 [facility] Urine Culture And SEE RESULT 47 finding [phone] Sensitivities BELOW CBC Auto Diff 06/24/2017 [facility] White Blood Count 10.4 10^3/uL N 3.5-10 [phone] Red Blood Count 4.85 10^6/uL N [...] Cells % 0.1 Laboratory test finding 06/24/2017 [facility] Lactic Acid 1.9 mmol/L N 0.5-2.0 48 [phone] Comp Metabolic Panel 06/24/2017 [facility] Sodium 134 mmol/L N 133- 145 [phone] Potassium 3.6 mmol/L N 3.5-5.0 Chloride 100 [...] 118.6 >60 49 Laboratory test finding 06/24/2017 [facility] HCG 0.75 mIU/ mL 50 [phone] Acetaminophen < 15 g/mL 51 Alcohol < 10 mg/dL N <10 Salicylate < 2.50 mg/dL <30 CBC Auto Diff 06/12/2017 [facility] White Blood 12.6 10^3/uL High 3.5 -10.8 [phone] Count Red Blood Count 4.39 10^6/uL N [...] Blood Cells % 0 Laboratory test 06/12/2017 [facility] Hemoglobin A1c 6.3 % High 4.0- 5.6 52 finding [phone] (Glyco HGB) Laboratory test 06/12/2017 [facility] HCG 0.80 53 finding [phone] mIU/mL Basic Metabolic 06/12/2017 [facility] Sodium 137 N 133-145 Panel [phone] mmol/L Potassium 3.7 mmol/L N 3.5-5.0 Chloride [...] : [address]: Katy SEGOVIA Acct: [id number] Unit: [id number] AGE: 42 Location: [facility] Re07/15/18 SEX: F Status: REG REF SPEC: [id number] TYLER: 07/15/18-16[address] [facility] [address]: Katy SEGOVIA REQ: [id number] RECD: 07/16/18-1251 STATUS: SOUT _ ORDERED: TP IMAGE ANALYS, HPV/Thin Prep COMMENTS: [id number] Negative for Intraepithelial lesion or Malignancy Date [...] System. Due to cytologic findings at the emergency nurse microscope, comprehensive manual rescreening by a Nurse Practitioner Physician Assistant may be required. The Pap Smear is [...] years. END OF REPORT DEPARTMENT OF PATHOLOGY, [address] [place] [address] Rashid Mcintosh M.D. Director [facility] # [id number] 10 [facility] Severe Sepsis and Septic Shock [...] [address]: Je Rowland MD Acct: [id number] Unit: [id number] AGE: 42 Location: ED Re07/12/18 SEX: F Status: DEP ER SPEC: [id number] TYLER: 07/12/[address]: Kay Dai MD REQ: [id number] RECD: 07/12/18 STATUS: CONNIE GLOVER DR: Joseph Hagen MD _ SOURCE: URINE SPDESC: ORDERED: Urine Culture Procedure Result Reported Site Urine Culture Final 07/14/18- 0850 ML Organism 1 ESCHERICHIA COLI [place] Count >100,000 (Many) CFU/ML 1. ESCHERICHIA COLI [...] . END OF REPORT DEPARTMENT OF PATHOLOGY, [address] [place] [address] Rashid Mcintosh M.D. Director [facility] # [id number] 17 SEE RESULT BELOW Name: ABRIL NGUYEN Pool : [address]: Je Rowland MD Acct: [id number] Unit: [id number] AGE: 42 Location: ED Re07/12/18 SEX: F Status: DEP ER SPEC: [id number] TYLER: 07/12/[address] [facility] [address]: Kay Dai MD REQ: [id number] RECD: 07/12/18 STATUS: COMP OTHR DR: Joseph [...] . END OF REPORT DEPARTMENT OF PATHOLOGY, [address] [place] [address] Rashid Mcintosh M.D. Director [facility] # [id number] 18 GC/Chlamydia Source?: Endocervical Trichomonas Source: Endocervical 19 FASTING 20 No evidence of antibodies to B. burgdorferi detected. False negative results may occur in recently infected patients (<=2 weeks) due to low or undetectable antibody levels to B. burgdorferi. If recent exposure is suspected, a second sample should be collected and tested in 2-4 weeks. Test Performed by: [facility] [place] [address] 21 REFERENCE VALUE <=1.0 (Negative) Test Performed by: [facility] [place] [address] 22 FASTING 23 REFERENCE VALUE <20.0 (Negative) Test Performed by: [facility] [place] [address] 24 Because ethnic data is not always [...] in selective patients <6.0%. Please refer to [place] [employer] diabetic care guidelines for further [...] [address]: Silvio Madrid MD Acct: [id number] Unit: [id number] AGE: 42 Location: [facility] Re05/08/18 SEX: F Status: ADM IN SPEC: [id number] TYLER: 05/08/[address] [facility] [address]: Jimmy Deshpande MD REQ: [id number] RECD: 05/08/18 STATUS: CONNIE GLOVER DR: Joseph Hagen MD _ [facility] ORDERED: Urine Culture Procedure Result Reported Site Urine Culture Final 05/10/18- 925 ML No growth of clinically significant organisms * ML - Main Lab . END OF REPORT DEPARTMENT OF PATHOLOGY, [address] [place] [address] Rashid Mcintosh M.D. Director [facility] # [id number] 40 Because ethnic data is not always [...] tested in 2-4 weeks. Test Performed by: [facility] [address] [id number] REFERENCE VALUE <4.0 (Negative) Test Performed by: [place] [id number] Negative serology. Celiac disease unlikely. However, approximately 10% of patients with celiac disease are seronegative. Also, patients who are already adhering to a gluten-free diet may be seronegative. If celiac disease is highly clinically suspected, consider HLA-DQ typing. Test Performed by: [place] [id number] 46 The urine specimen was tested at the listed cutoffs: Drug class test level (ng/mL) Amphetamines 500 Barbiturates 200 Benzodiazepine metabolites 200 Cocaine metabolites 150 Cannabinoids 50 Opiates 300 Pcp 25 Specimen was received without chain of custody. Results should be used for medical purposes only. 47 SEE RESULT BELOW Name: ABRIL NGUYEN : [address]: Je Duarte MD Acct: [id number] Unit: [id number] AGE: 41 Location: ED Re06/24/17 SEX: F Status: DEP ER SPEC: [id number] TYLER: 06/24/[address]: Je Duarte MD REQ: [id number] RECD: 06/24/17 STATUS: CONNIE GLOVER DR: Joseph Hagen MD _ SOURCE: URINE SPDESC: ORDERED: Urine Culture Procedure Result Reported Site Urine Culture Final 06/26/17- 12 ML No growth of clinically significant organisms * ML - MAIN LAB (PSC1) . END OF REPORT * ML=Testing performed at Main Lab DEPARTMENT OF PATHOLOGY, [address] [place] [address] Rashid Mcintosh M.D. Director [facility] # [id number] 48 [facility] Severe Sepsis and Septic Shock [...] in selective patients <6.0%. Please refer to [place] [employer] diabetic care guidelines for further [...] dialysis) Procedures Date Code Description Status 12/25/2018 70858 Spirometry Completed 12/15/2018 36372 X-Ray Chest 2 V Completed 06/04/2018 65538452 Mammogram Completed 01/27/2018 72258 Electrocardiogram Complete Completed 01/08/2018 49575 SC/Im Injections Completed 06/13/2017 16378 Visual Acuity Screening Test Completed 05/13/2017 53090 Electrocardiogram Complete Completed Encounters Type Date Location [...] F17.210 Nicotine dependence, cigarettes, uncomplicated Z79.899 Other mcfp (current) drug therapy Office Visit 03/20/2018 9:20a Main Office Katy Sol, L03.115 Cellulitis of P.A. 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 hyperhidrosis E66.9 Obesity, unspecified F43.23 Adjustment disorder with mixed anxiety and depressed mood I10 Essential (primary) hypertension R73.03 Prediabetes Z68.41 Body mass index (BMI) 40.0-44.9, adult Office Visit 07/12/2017 1:40p Main Office Katy [place], G43.C0 Periodic headache P.A. syndromes in chld/adlt, not intractable G89.4 Chronic pain syndrome M54.5 Low back pain Office Visit 07/04/2017 9:20a Main Office Katy Sol I10 Essential ( primary) P.A. hypertension G43.C0 Periodic headache syndromes in chld/adlt, not intractable Z79.899 Other mcfp (current) drug therapy Z03.6 Encntr for obs [...] 8:40 am - Danii Gonzáles at Main [id number] 3:00 pm - Danii Gonzáles at Main Zbmiko7207/31/2018 - Danii GonzálesN93.9 Abnormal uterine and vaginal bleeding, unspecifiedComments: oxycodone and cocaine noted in preliminary testFollow up:improved: if cont to ahve prob return to the ccwrikY90 Essential (primary) hypertensionComments:pt advised to report cp, change in angina , sob Comply with diet and exercise. Lose weight and watch salt in diet.start the new pill with both meds in the same pillsFollow up:much better today , cont same meds and ovcmaD83.23 Adjustment disorder with mixed anxiety and depressed moodFollow up:cont with current medications, happy that depression is improving and meds working Today' s Goal: find the CPAP machine Great with going to [facility] at [facility]!N39.0 Urinary tract infection, site not specifiedComments:pt has just started menses, will not culture as pt had no sxs pbtahF64.14 Cocaine abuse with cocaine- induced mood rianslhzI92.14 Opioid abuse with opioid-induced mood disorder
--- OUTSIDE RECORDS SUMMARY | 2019-01-03 06:29 | XMS REPORT | Continuity of Care Document ---
:1975 External Reference #:[id number] Author Name Bhupendra Nunes D.O. Address [address] [place] [id number] Care Team Providers Name Role Phone HCP given Primary Care Physician Unavailable Payers Date Identification Numbers Payment Provider Subscriber Effective: 2018 Policy Number: [id number] [facility] Abril Nguyen PayID: [id number] [address] [place] [address] Problems Active Problems Provider Date Essential hypertension [...] 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 Currently Working at [employer] 2018 Right-handed Abuse No history of abuse Tobacco Use Start: Unknown Former Cigarette End: Unknown Smoker ETOH Use Denies alcohol use "rarely" Recreational Drug Use Cocaine used it a couple of times ~Apr 2018 in setting of learning that her was cheating on her Tobacco Use Reviewed: 09/16/18 Light tobacco smoker (10 or fewer cigarettes/day) Smoking Status Reviewed: 12/30/18 Light tobacco smoker (10 or fewer cigarettes/day) Exercise Type/Frequency Exercises regularly walking Sun Exposure Does not use sunscreen Seat Belt/Car Seat always uses seat belt Guns in Home No Smoke Alarms Yes smoke alarm Currently Active Patient is currently sexually active Age [address]st [place] 18 Years Old Allergies, Adverse Reactions, Alerts [...] Silcoff, 25mg Tablets for high blood Shanique Ruzi 9 pressure Albuterol Sulfate HFA inhale one [...] 7 days Gabapentin 1 by mouth at [facility] [place], 04/18/2018 - 300mg Capsules bedtime for 1 Shanique Ruiz 04/18/2018 week then stop it; for pain Suboxone 1 film by mouth 30units F11.20 Silcoff, 04/14/2018 - 2-0.5mg Film every morning; Shanique Ruiz 06/24/2018 rx due 05/28/18; suboxone prescriber #[id number] Suboxone 1 film by mouth 2units F11.20 Silcoff, 04/11/2018 - 2-0.5mg Film every morning Shanique Ruiz 04/14/2018 starting on 04/13/18 (use remaining 8/2 film for 03/18 dose); suboxone prescriber #[id number] Suboxone 1/2 film by 2rivas F11.20 Xiao, 04/10/2018 - 8-2mg Film mouth now; may Shanique Ruiz 04/11/2018 take another 1/2 film today after 4 or more hours; take 1/2 film tomorrow am; suboxone prescriber# [id number] Suboxone 1/2 film by 2films F11.20 Xiao, 04/09/2018 - 8-2mg Film mouth tonightJoseph M.D. 04/10/2018 again tomorrow am and Saturday am; may take 1 more dose Marion stiven; suboxone prescriber# [id number] Nicoderm CQ 1 patch per day [id number] [...] Dressing daily for wound Shanique Ruiz 03/16/2018 [facility] Gel care management right ankle Cephalexin 1 [...] Ordering Provider Date TB Intradermal Test Danii Gonzláes 2018 Injection TB Intradermal Test Valeria Nelson PA 06/04/2018 Injection Toradol 15MG. Valeria Nelson PA 01/08/2018 Injection SC/Im Injections Valeria Nelson PA 01/08/2018 Injection TB Intradermal Test Katy Sol PRichar 06/04/2017 Injection Immunizations CPT Code Status Date Vaccine Lot # [id number] Given 03/20/2018 Influenza Virus Vaccine, Quadrivalent, Split, [id number] Preservative Free 35808 Given 06/06/2017 MMR Virus Immunization [id number] Given 06/04/2017 Influenza Virus Vaccine, Quadrivalent, Split, [id number] Preservative Free 38919 Given 12/11/2016 Adacel or Boostrix, TDaP 35657 Given 12/11/2016 MMR Virus Immunization U-Flu Given 04/23/2016 Influenza,Unspecified U-Flu Given 04/02/2013 Influenza,Unspecified 15593 Given 02/27/2012 Flu, Split Virus 3Yrs Vital [...] Rapid Screen negative HIV 1/2 AB 09/23/2018 [facility] HIV 1 2 Nonreactive Nonreactive 1 Evaluation [phone] Antibody Hepatitis C 09/23/2018 [facility] HCV Index < 0.0 Index Antibody [phone] Hepatitis C Antibody Nonreactive Nonreactive Comp Metabolic Panel 09/14/2018 [facility] Sodium 136 mmol/L N 135- 145 [phone] Potassium 4.2 mmol/L N 3.5-5.0 Chloride 104 [...] Egfr 137.9 >60 2 Laboratory test 09/14/2018 [facility] C Reactive 5.52 mg/L N <8.01 finding [phone] Protein CBC No Diff 09/14/2018 [facility] White Blood 11.0 High 3.5-10.8 [phone] Count 10^3/uL Red Blood Count 4.74 10^6/uL [...] fL Low 7.4-10.4 CBC Auto Diff 08/12/2018 [facility] White Blood 12.2 10^3/uL High 3.5 -10.8 [phone] Count Red Blood Count 5.63 10^6/uL High [...] Cells % 0.1 Comp Metabolic Panel 08/12/2018 [facility] Sodium 136 mmol/L N 135- 145 [phone] Potassium 4.0 mmol/L N 3.5-5.0 Chloride 102 [...] 95.2 >60 3 Laboratory test finding 08/12/2018 [facility] Alcohol < 10 mg/dL N < 10 [phone] Salicylate < 2.50 mg/dL <30 TSH (Thyroid Stim Horm) 1.42 mcIU/mL N 0.34-5.60 Acetaminophen 1 g/mL 4 Urinalysis Profile 08/12/2018 [facility] Urine Color Yellow [phone] Urine Appearance Clear Urine Specific Hunter 1.017 N 1.010-1.030 Urine pH 6.0 N 5-9 Urine Urobilinogen Negative Negative Urine Ketones Negative Negative Urine Protein Negative Negative Urine Leukocytes Negative Negative Urine Blood Negative Negative Urine Nitrite Negative Negative Urine Bilirubin Negative Negative Urine Glucose Negative Negative Urine Drug 08/12/2018 [facility] Amphetamine Ur None Detected None Detect SCR ED & [phone] Screen Pain Clinic Barbiturates Urine Screen None [...] - Urine Methanphetamines - Urine Benzodiazepines QN [place] - Urine Oxycodone QL + Ua Inhouse 07/31/2018 In House Ua Glucose - 7 Ua Bilirubin mod Ua Ketones - Ua Specific Hunter 1.030 Ua Blood lg Ua PH 5.0 Ua Protein 1+ Ua Urobilinogen - Ua Nitrite - Ua Leukocytes - Laboratory test finding 07/16/2018 [facility] HCG < 0.60 mIU/ mL 8 [phone] Erythrocyte Sed Rate 16 mm/Hr High 0-14 CBC Auto Diff 07/16/2018 [facility] White Blood Count 10.8 10^3/uL N 3.5-10.8 [phone] Red Blood Count 5.00 10^6/uL N 4.00-5.40 [...] Cells % 0 Laboratory test finding 07/15/2018 [facility] Cytology SEE RESULT BELOW 9 [phone] Urinalysis Profile 07/12/2018 [facility] Urine Color Velia [phone] Urine Appearance Cloudy Urine Specific Hunter 1.026 N 1.010-1.030 Urine pH 6.0 N [...] Present Abnormal Absent CBC Auto Diff 07/12/2018 [facility] White Blood 12.7 10^3/uL High 3.5 -10.8 [phone] Count Red Blood Count 4.98 10^6/uL N [...] Blood Cells % 0.1 Laboratory test 07/12/2018 [facility] Lactic Acid 1.5 mmol/L N 0.5- 2.0 10 finding [phone] Urine Drug SCR 07/12/2018 [facility] Amphetamine Ur None None Detect ED & Pain [phone] Screen Detected Clinic Barbiturates Urine Screen None Detected None Detect Benzodiazepine Urine Screen None Detected None Detect Urine Cannabinoids Screen Presumptive Posi <SEE NOTE> Abnormal None Detect 11 Urine Cocaine Screen Presumptive Posi <SEE NOTE> Abnormal None Detect 12 Urine Opiates Screen None Detected None Detect Urine Phencyclidine Screen None Detected None Detect 13 Comp Metabolic Panel 07/12/2018 [facility] Sodium 138 mmol/L N 135- 145 [phone] Potassium 3.7 mmol/L N 3.5-5.0 Chloride 106 [...] 118.8 >60 14 Laboratory test finding 07/12/2018 [facility] Amylase 45 U/L N 29- 103 [phone] Lipase 45 U/L N 11.0-82.0 C Reactive Protein 15.35 mg/L High <8.01 HCG 0.83 mIU/mL 15 Urine Culture And 07/12/2018 [facility] Urine Culture SEE RESULT 16 Sensitivities [phone] BELOW Laboratory test 07/12/2018 [facility] Gardnerella/Yeas SEE RESULT 17 finding [phone] t: Vaginal Dna BELOW Trichomonas Vaginalis Rna Negative Negative 18 GC/Chlamydia 07/12/2018 [facility] Chlamydia Negative Negative Amplified Rna [phone] trachomatis Rna Neisseria gonorrhoeae (GC) Rna Negative Negative CBC Auto Diff 06/20/2018 [facility] White Blood 11.7 10^3/uL High 3.5 -10.8 [phone] Count Red Blood Count 5.61 10^6/uL High [...] Blood Cells % 0 Laboratory test 06/20/2018 [facility] Vitamin D Total 19.4 ng/mL Low 20-50 19 finding [phone] 25(Oh) Lyme Disease Serology Negative Negative 20 Anti Nuclear Antibody 0.2 U 21 Rheumatoid Factor < 10 IU/mL N <15 22 Cyclic Citrullinated Pep Igg <15.6 U 23 Comp Metabolic Panel 06/20/2018 [facility] Sodium 136 mmol/L N 135- 145 [phone] Potassium 4.0 mmol/L N 3.5-5.0 Chloride 103 [...] Egfr 118.8 >60 24 Laboratory test 06/20/2018 [facility] Erythrocyte Sed 32 mm/Hr High 0 -14 25 finding [phone] Rate C Reactive Protein 7.18 mg/L N <8.01 26 Lipid Profile 06/20/2018 [facility] Triglycerides 367 mg/dL 27 (Trig/Chol/HDL) [phone] Cholesterol 263 mg/dL 28 HDL Cholesterol 43.0 mg/dL 29 LDL Cholesterol 147 mg/dL 30 Laboratory test 06/20/2018 [facility] Hemoglobin A1c 6.2 % High 4.0- 5.6 31 finding [phone] (Glyco HGB) TSH (Thyroid Stim Horm) 1.36 mcIU/mL N 0.34-5.60 32 Urine Drug Screen Inhouse 06/12/2018 In House Ua Cocaine + Ua Opiates - Ua Amphetamines - Urine Methanphetamines - Urine Benzodiazepines QN [place] - Urine Oxycodone QL - Urine Drug Screen Inhouse 05/27/2018 In House Ua Cocaine - Ua Opiates - Ua Amphetamines - Urine Methanphetamines - Urine Benzodiazepines QN [place] - Urine Oxycodone QL - Urine Drug 05/08/2018 [facility] Amphetamine Ur None Detected None Detect SCR ED & [phone] Screen Pain Clinic Barbiturates Urine Screen None Detected None Detect Benzodiazepine Urine Screen Presumptive Posi <SEE NOTE> Abnormal None Detect 33 Urine Cannabinoids Screen None Detected None Detect Urine Cocaine Screen Presumptive Posi <SEE NOTE> Abnormal None Detect 34 Urine Opiates Screen None Detected None Detect Urine Phencyclidine Screen None Detected None Detect 35 Comp Metabolic Panel 05/08/2018 [facility] Sodium 137 mmol/L N 135- 145 [phone] Potassium 3.8 mmol/L N 3.5-5.0 Chloride 103 [...] 114.8 >60 36 Laboratory test finding 05/08/2018 [facility] HCG < 0.60 mIU/ mL 37 [phone] Acetaminophen < 15 g/mL 38 Alcohol < 10 mg/dL N <10 Salicylate < 2.50 mg/dL <30 TSH (Thyroid Stim Horm) 1.07 mcIU/mL N 0.34-5.60 CBC Auto Diff 05/08/2018 [facility] White Blood 12.3 10^3/uL High 3.5 -10.8 [phone] Count Red Blood Count 5.06 10^6/uL N [...] Blood Cells % 0.2 Urinalysis Profile 05/08/2018 [facility] Urine Color Yellow [phone] Urine Appearance Cloudy Urine Specific Hunter 1.011 N 1.010-1.030 Urine pH 8.0 N [...] Present Abnormal Absent Urine Culture And 05/08/2018 [facility] Urine Culture SEE RESULT 39 Sensitivities [phone] BELOW Urine Drug Screen 04/25/2018 In House Ua Cocaine - Inhouse Ua Opiates - Ua Amphetamines - Urine Methanphetamines - Urine Benzodiazepines QN [place] - Urine Oxycodone QL - Urine Drug Screen Inhouse 04/11/2018 In House Ua Cocaine - Ua Opiates - Ua Amphetamines - Urine Methanphetamines - Urine Benzodiazepines QN [place] - Urine Oxycodone QL - Pthi 01/29/2018 [facility] Calcium (PTH Intact) 9.0 mg/dL N 8.6-10.3 [phone] PTH Intact 5.3 pmol/L N 1.3-9.3 Laboratory test 01/29/2018 [facility] Insulin Level 74.9 mcIU/mL High 2.0-16.0 finding [phone] Basic Metabolic 01/29/2018 [facility] Sodium 138 mmol/L N 135-145 Panel [phone] Potassium 4.3 mmol/L N 3.5-5.0 Chloride 106 mmol/L N 101-111 Co2 Carbon Dioxide 24 mmol/L N 22-32 Anion Gap 8 mmol/L N 2-11 Glucose 106 mg/dL High 70-100 Blood Urea Nitrogen 16 mg/dL N 6-24 Creatinine 0.89 mg/dL N 0.51-0.95 BUN/Creatinine Ratio 18.0 N 8-20 Calcium 9.0 mg/dL N 8.6-10.3 Egfr Non- 69.6 >60 Egfr 84.2 >60 40 Laboratory test 01/29/2018 [facility] TSH (Thyroid 1.55 mcIU/mL N 0.34-5.60 finding [phone] Stim Horm) Ua Inhouse 01/27/2018 In House Ua Glucose - 41 Ua Bilirubin - Ua Ketones - Ua Specific Hunter 1.020 Ua Blood sm/ 1+ Ua PH [...] Culture Throat negative Basic Metabolic Panel 11/28/2017 [facility] Sodium 134 mmol/L Low 135 -145 [phone] Potassium 4.3 mmol/L N 3.5-5.0 Chloride 101 mmol/L N 101-111 Co2 Carbon Dioxide 24 mmol/L N 22-32 Anion Gap 9 mmol/L N 2-11 Glucose 104 mg/dL High 70-100 Blood Urea Nitrogen 15 mg/dL N 6-24 Creatinine 0.70 mg/dL N 0.51-0.95 BUN/Creatinine Ratio 21.4 High 8-20 Calcium 9.3 mg/dL N 8.6-10.3 Egfr Non- 91.8 >60 Egfr 118.0 >60 42 CBC Auto Diff 11/28/2017 [facility] White Blood Count 9.6 10^3/uL N 3.5-10.8 [phone] Red Blood Count 4.54 10^6/uL N 4.00-5.40 [...] Blood Cells % 0.1 Laboratory test 11/28/2017 [facility] Erythrocyte Sed 29 mm/Hr High 0 -14 finding [phone] Rate Lyme Disease Serology Negative Negative 43 TSH (Thyroid Stim Horm) 1.95 mcIU/mL N 0.34-5.60 Celiac Panel 11/28/2017 [facility] Tissue Transglutaminase IgA <1.2 U/ mL 44 [phone] Ab Immunoglobulin A 358 mg/dL Abnormal 61 - 356 Celiac Interpretation See Comment 45 Laboratory test finding 09/26/2017 In House Hemoglobin A1c 6.0 Urinalysis Profile 06/24/2017 [facility] Urine Color Yellow [phone] Urine Appearance Cloudy Urine Specific Hunter 1.021 N 1.010-1.030 Urine pH 6.0 N [...] Cell Present Abnormal Absent Urine Drug 06/24/2017 [facility] Amphetamine Ur None Detected None Detect SCR ED & [phone] Screen Pain Clinic Barbiturates Urine Screen None Detected None Detect Benzodiazepine Urine Screen None Detected None Detect Urine Cannabinoids Screen None Detected None Detect Urine Cocaine Screen None Detected None Detect Urine Opiates Screen None Detected None Detect Urine Phencyclidine Screen None Detected None Detect 46 Laboratory test 06/24/2017 [facility] Urine Culture And SEE RESULT 47 finding [phone] Sensitivities BELOW CBC Auto Diff 06/24/2017 [facility] White Blood Count 10.4 10^3/uL N 3.5-10 [phone] Red Blood Count 4.85 10^6/uL N [...] Cells % 0.1 Laboratory test finding 06/24/2017 [facility] Lactic Acid 1.9 mmol/L N 0.5-2.0 48 [phone] Comp Metabolic Panel 06/24/2017 [facility] Sodium 134 mmol/L N 133- 145 [phone] Potassium 3.6 mmol/L N 3.5-5.0 Chloride 100 [...] 118.6 >60 49 Laboratory test finding 06/24/2017 [facility] HCG 0.75 mIU/ mL 50 [phone] Acetaminophen < 15 g/mL 51 Alcohol < 10 mg/dL N <10 Salicylate < 2.50 mg/dL <30 CBC Auto Diff 06/12/2017 [facility] White Blood 12.6 10^3/uL High 3.5 -10.8 [phone] Count Red Blood Count 4.39 10^6/uL N [...] Blood Cells % 0 Laboratory test 06/12/2017 [facility] Hemoglobin A1c 6.3 % High 4.0- 5.6 52 finding [phone] (Glyco HGB) Laboratory test 06/12/2017 [facility] HCG 0.80 53 finding [phone] mIU/mL Basic Metabolic 06/12/2017 [facility] Sodium 137 N 133-145 Panel [phone] mmol/L Potassium 3.7 mmol/L N 3.5-5.0 Chloride [...] : [address]: Katy SEGOVIA Acct: [id number] Unit: [id number] AGE: 42 Location: [facility] Re07/15/18 SEX: F Status: REG REF SPEC: [id number] TYLER: 07/15/18-1637 [facility] DR: Katy SEGOVIA REQ: [id number] RECD: 07/16/18-1251 STATUS: SOUT _ ORDERED: TP IMAGE ANALYS, HPV/Thin Prep COMMENTS: [id number] Negative for Intraepithelial lesion or Malignancy Date [...] System. Due to cytologic findings at the fiction and nonfiction prose writer microscope, comprehensive manual rescreening by a Fishery Biologist may be required. The Pap Smear is [...] years. END OF REPORT DEPARTMENT OF PATHOLOGY, [address] [place] [address] Rashid Mcintosh M.D. Director [facility] # [id number] 10 [facility] Severe Sepsis and Septic Shock Management [...] [address]: Je Rowland MD Acct: [id number] Unit: [id number] AGE: 42 Location: ED Re07/12/18 SEX: F Status: DEP ER SPEC: [id number] TYLER: 07/12/[address]: Kay Dai MD REQ: [id number] RECD: 07/12/18 STATUS: CONNIE GLOVER DR: Joseph Hagen MD _ SOURCE: URINE SPDESC: ORDERED: Urine Culture Procedure Result Reported Site Urine Culture Final 07/14/18- 0850 ML Organism 1 ESCHERICHIA COLI [place] Count >100,000 (Many) CFU/ML 1. ESCHERICHIA COLI [...] . END OF REPORT DEPARTMENT OF PATHOLOGY, [address] [place] [address] Rashid Mcintosh M.D. Director [facility] # [id number] 17 SEE RESULT BELOW Name: ABRIL NGUYEN Pool : [address]: Je Rowland MD Acct: [id number] Unit: [id number] AGE: 42 Location: ED Re07/12/18 SEX: F Status: DEP ER SPEC: [id number] TYLER: 07/12/18 [facility] [address]: Kay Dai MD REQ: [id number] RECD: 07/12/18 STATUS: COMP OTHR DR: Joseph [...] . END OF REPORT DEPARTMENT OF PATHOLOGY, [address] [place] [address] Rashid Mcintosh M.D. Director [facility] # [id number] 18 GC/Chlamydia Source?: Endocervical Trichomonas Source: Endocervical 19 FASTING 20 No evidence of antibodies to B. burgdorferi detected. False negative results may occur in recently infected patients (<=2 weeks) due to low or undetectable antibody levels to B. burgdorferi. If recent exposure is suspected, a second sample should be collected and tested in 2-4 weeks. Test Performed by: [place] [address] 21 REFERENCE VALUE <=1.0 (Negative) Test Performed by: [place] [address] 22 FASTING 23 REFERENCE VALUE <20.0 (Negative) Test Performed by: [place] [address] 24 Because ethnic data is not always [...] in selective patients <6.0%. Please refer to [place] [employer] diabetic care guidelines for further [...] [address]: Silvio Madrid MD Acct: [id number] Unit: [id number] AGE: 42 Location: [facility] Re05/08/18 SEX: F Status: ADM IN SPEC: [id number] TYLER: 05/08/[address] [facility] [address]: Jimmy Deshpande MD REQ: [id number] RECD: 05/08/18 STATUS: CONNIE GLOVER DR: Joseph Hagen MD _ S[facility] ORDERED: Urine Culture Procedure Result Reported Site Urine Culture Final 05/10/18- 925 ML No growth of clinically significant organisms * ML - Main Lab . END OF REPORT DEPARTMENT OF PATHOLOGY, [address] [place] [address] Rashid Mcintosh M.D. Director [facility] # [id number] 40 Because ethnic data is not always [...] tested in 2-4 weeks. Test Performed by: [facility] [address] [id number] REFERENCE VALUE <4.0 (Negative) Test Performed by: [address] [place] [id number] Negative serology. Celiac disease unlikely. However, approximately 10% of patients with celiac disease are seronegative. Also, patients who are already adhering to a gluten-free diet may be seronegative. If celiac disease is highly clinically suspected, consider HLA-DQ typing. Test Performed by: [place] [id number] 46 The urine specimen was tested at the listed cutoffs: Drug class test level (ng/mL) Amphetamines 500 Barbiturates 200 Benzodiazepine metabolites 200 Cocaine metabolites 150 Cannabinoids 50 Opiates 300 Pcp 25 Specimen was received without chain of custody. Results should be used for medical purposes only. 47 SEE RESULT BELOW Name: ABRIL NGUYEN : [address]: Je Duarte MD Acct: [id number] Unit: [id number] AGE: 41 Location: ED Re06/24/17 SEX: F Status: DEP ER SPEC: [id number] TYLER: 06/24/[address]: Je Duarte MD REQ: [id number] RECD: 06/24/17 STATUS: CONNIE GLOVER DR: Joseph Hagen MD _ SOURCE: URINE SPDESC: ORDERED: Urine Culture Procedure Result Reported Site Urine Culture Final 06/26/17- 12 ML No growth of clinically significant organisms * ML - MAIN LAB (PSC1) . END OF REPORT * ML=Testing performed at Main Lab DEPARTMENT OF PATHOLOGY, [address] [place] [address] Rashid Mcintosh M.D. Director [facility] # [id number] 48 [facility] Severe Sepsis and Septic Shock Management [...] in selective patients <6.0%. Please refer to [place] [employer] diabetic care guidelines for further [...] dialysis) Procedures Date Code Description Status 12/25/2018 39135 Spirometry Completed 12/15/2018 09161 X-Ray Chest 2 V Completed 06/04/2018 [id number] Mammogram Completed 01/27/2018 57734 Electrocardiogram Complete Completed 01/08/2018 66193 SC/Im Injections Completed 06/13/2017 96097 Visual Acuity Screening Test Completed 05/13/2017 59122 Electrocardiogram Complete Completed Encounters Type Date Location Provider Dx Diagnosis Office Visit 12/30/2018 2:20p Main Office Katy Sol PRichar R05 Cough F43.23 Adjustment disorder with mixed anxiety and depressed mood I10 Essential (primary) hypertension F17.210 Nicotine dependence, cigarettes, uncomplicated F14.11 Cocaine abuse, in remission Office Visit 12/25/2018 4:40p Main Office Katy Sol PRichar R06.2 Wheezing R05 Cough F43.23 Adjustment disorder with mixed anxiety and depressed mood I10 Essential (primary) hypertension F17.210 Nicotine dependence, cigarettes, uncomplicated J30.9 Allergic rhinitis, unspecified Office Visit 12/15/2018 3:20p Main Office Katty Gonzáles.Susan Adjustment disorder P.A. with mixed anxiety and depressed mood R05 Cough I10 Essential (primary) hypertension F17.210 Nicotine dependence, cigarettes, uncomplicated Office Visit 12/05/2018 4:00p Main Office Katty Gonzáles.23 Adjustment disorder P.A. with mixed anxiety and depressed mood R05 Cough I10 Essential (primary) hypertension Office Visit 11/13/2018 3:00p Main Office Katy Sol, F43.23 Adjustment disorder P.A. with mixed anxiety and depressed mood M54.12 Radiculopathy, cervical region R05 Cough J30.9 Allergic rhinitis, unspecified Office Visit 10/10/2018 4:20p Main Office Katy Sol, J02.9 Acute pharyngitis, P.A. unspecified J01.90 Acute sinusitis, unspecified Office Visit 09/29/2018 11:40a Main Office Katy Sol, I10 Essential ( [...] adult Office Visit 06/24/2018 1:30p Main Office Xiao F11.20 Opioid dependenceJoesph M.D. uncomplicated Z71.51 Drug abuse counseling and [...] 05/27/2018 2:00p Main Office Xiao F11.20 Opioid dependence, Shanique Ruiz uncomplicated F14.10 Cocaine abuse, uncomplicated Office Visit 05/23/2018 9:20a Main Office Katy Sol, F11.20 Opioid dependence, P.A. uncomplicated E66.9 Obesity, [...] F17.210 Nicotine dependence, cigarettes, uncomplicated Z79.899 Other fpc (current) drug therapy Office Visit 03/20/2018 9:20a Main Office Katy Sol, L03.115 Cellulitis of P.A. right lower limb G47.33 Obstructive sleep apnea (adult) (pediatric) E66.9 Obesity, unspecified I10 Essential (primary) hypertension D64.9 Anemia, unspecified R53.1 Weakness Z23 Encounter for immunization Z41.8 Encntr for oth proc for purpose oth than [facility] Z59.4 Lack of adequate food and safe [...] calories Office Visit 09/09/2017 4:40p Main Office aKty Sol F43.23 Adjustment disorder P.A. 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
--- OUTSIDE RECORDS SUMMARY | 2019-01-03 06:30 | XMS REPORT | Continuity of Care Document ---
:1975 External Reference #:[id number] Author Name Bhupendra Nunes D.O. 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, 04/18/2018 - 300mg Capsules bedtime for 1 Shanique Ruiz 04/18/2018 week then stop it; for pain Suboxone 1 film by mouth 30units F11.20 Silcoff, 04/14/2018 - 2-0.5mg Film every morning; Shanique Ruiz 06/24/2018 rx due 05/28/18; suboxone prescriber #[id number] Suboxone 1 film by mouth 2units F11.20 Silcoff, 04/11/2018 - 2-0.5mg Film every morning Shanique Ruiz 04/14/2018 starting on 04/13/18 (use remaining 8/2 film for 03/18 dose); suboxone prescriber #[id number] Suboxone 1/2 film by 2rivas F11.20 Xiao, 04/10/2018 - 8-2mg Film mouth now; may Shanique Ruiz 04/11/2018 take another 1/2 film today after 4 or more hours; take 1/2 film tomorrow am; suboxone prescriber# [id number] Suboxone 1/2 film by 2films F11.20 Xiao, 04/09/2018 - 8-2mg Film mouth tonightJoseph M.D. 04/10/2018 again tomorrow am and Saturday am; may take 1 more dose Marion stiven; suboxone prescriber# [id number] Nicoderm CQ 1 patch per day [id number] [...] Dressing daily for wound Shanique Ruiz 03/16/2018 [facility] Gel care management right ankle Cephalexin 1 [...] CPT Code Status Date Vaccine Lot # [id number] Given 03/20/2018 Influenza Virus Vaccine, Quadrivalent, Split, [id number] Preservative Free [id number] Given 06/06/2017 MMR Virus Immunization [id number] 93367 Given 06/04/2017 Influenza Virus Vaccine, Quadrivalent, Split, [id number] Preservative Free 26726 Given 12/11/2016 Adacel or Boostrix, TDaP 69523 Given 12/11/2016 MMR Virus Immunization U-Flu Given 04/23/2016 Influenza,Unspecified U-Flu Given 04/02/2013 Influenza,Unspecified 96563 Given 02/27/2012 Flu, Split Virus 3Yrs Vital [...] Rapid Screen negative HIV 1/2 AB 09/23/2018 [facility] HIV 1 2 Nonreactive Nonreactive 1 Evaluation [phone] Antibody Hepatitis C 09/23/2018 [facility] HCV Index < 0.0 Index Antibody [phone] Hepatitis C Antibody Nonreactive Nonreactive Comp Metabolic Panel 09/14/2018 [facility] Sodium 136 mmol/L N 135- 145 [phone] Potassium 4.2 mmol/L N 3.5-5.0 Chloride 104 [...] Egfr 137.9 >60 2 Laboratory test 09/14/2018 [facility] C Reactive 5.52 mg/L N <8.01 finding [phone] Protein CBC No Diff 09/14/2018 [facility] White Blood 11.0 High 3.5-10.8 [phone] Count 10^3/uL Red Blood Count 4.74 10^6/uL [...] fL Low 7.4-10.4 CBC Auto Diff 08/12/2018 [facility] White Blood 12.2 10^3/uL High 3.5 -10.8 [phone] Count Red Blood Count 5.63 10^6/uL High [...] Cells % 0.1 Comp Metabolic Panel 08/12/2018 [facility] Sodium 136 mmol/L N 135- 145 [phone] Potassium 4.0 mmol/L N 3.5-5.0 Chloride 102 [...] 95.2 >60 3 Laboratory test finding 08/12/2018 [facility] Alcohol < 10 mg/dL N < 10 [phone] Salicylate < 2.50 mg/dL <30 TSH (Thyroid Stim Horm) 1.42 mcIU/mL N 0.34-5.60 Acetaminophen 1 g/mL 4 Urinalysis Profile 08/12/2018 [facility] Urine Color Yellow [phone] Urine Appearance Clear Urine Specific [place] 1.017 N 1.010-1.030 Urine pH 6.0 N 5-9 Urine Urobilinogen Negative Negative Urine Ketones Negative Negative Urine Protein Negative Negative Urine Leukocytes Negative Negative Urine Blood Negative Negative Urine Nitrite Negative Negative Urine Bilirubin Negative Negative Urine Glucose Negative Negative Urine Drug 08/12/2018 [facility] Amphetamine Ur None Detected None Detect SCR ED & [phone] Screen Pain Clinic Barbiturates Urine Screen None [...] - Urine Methanphetamines - Urine Benzodiazepines QN [place] - Urine Oxycodone QL + Ua Inhouse 07/31/2018 In House Ua Glucose - 7 Ua Bilirubin mod Ua Ketones - Ua Specific [place] 1.030 Ua Blood lg Ua PH 5.0 Ua Protein 1+ Ua Urobilinogen - Ua Nitrite - Ua Leukocytes - Laboratory test finding 07/16/2018 [facility] HCG < 0.60 mIU/ mL 8 [phone] Erythrocyte Sed Rate 16 mm/Hr High 0-14 CBC Auto Diff 07/16/2018 [facility] White Blood Count 10.8 10^3/uL N 3.5-10.8 [phone] Red Blood Count 5.00 10^6/uL N 4.00-5.40 [...] Cells % 0 Laboratory test finding 07/15/2018 [facility] Cytology SEE RESULT BELOW 9 [phone] Urinalysis Profile 07/12/2018 [facility] Urine Color Velia [phone] Urine Appearance Cloudy Urine Specific [place] 1.026 N 1.010-1.030 Urine pH 6.0 N [...] Present Abnormal Absent CBC Auto Diff 07/12/2018 [facility] White Blood 12.7 10^3/uL High 3.5 -10.8 [phone] Count Red Blood Count 4.98 10^6/uL N [...] Blood Cells % 0.1 Laboratory test 07/12/2018 [facility] Lactic Acid 1.5 mmol/L N 0.5- 2.0 10 finding [phone] Urine Drug SCR 07/12/2018 [facility] Amphetamine Ur None None Detect ED & Pain [phone] Screen Detected Clinic Barbiturates Urine Screen None Detected None Detect Benzodiazepine Urine Screen None Detected None Detect Urine Cannabinoids Screen Presumptive Posi <SEE NOTE> Abnormal None Detect 11 Urine Cocaine Screen Presumptive Posi <SEE NOTE> Abnormal None Detect 12 Urine Opiates Screen None Detected None Detect Urine Phencyclidine Screen None Detected None Detect 13 Comp Metabolic Panel 07/12/2018 [facility] Sodium 138 mmol/L N 135- 145 [phone] Potassium 3.7 mmol/L N 3.5-5.0 Chloride 106 [...] 118.8 >60 14 Laboratory test finding 07/12/2018 [facility] Amylase 45 U/L N 29- 103 [phone] Lipase 45 U/L N 11.0-82.0 C Reactive Protein 15.35 mg/L High <8.01 HCG 0.83 mIU/mL 15 Urine Culture And 07/12/2018 [facility] Urine Culture SEE RESULT 16 Sensitivities [phone] BELOW Laboratory test 07/12/2018 [facility] Gardnerella/Yeas SEE RESULT 17 finding [phone] t: Vaginal Dna BELOW Trichomonas Vaginalis Rna Negative Negative 18 GC/Chlamydia 07/12/2018 [facility] Chlamydia Negative Negative Amplified Rna [phone] trachomatis Rna Neisseria gonorrhoeae (GC) Rna Negative Negative CBC Auto Diff 06/20/2018 [facility] White Blood 11.7 10^3/uL High 3.5 -10.8 [phone] Count Red Blood Count 5.61 10^6/uL High [...] Blood Cells % 0 Laboratory test 06/20/2018 [facility] Vitamin D Total 19.4 ng/mL Low 20-50 19 finding [phone] 25(Oh) Lyme Disease Serology Negative Negative 20 Anti Nuclear Antibody 0.2 U 21 Rheumatoid Factor < 10 IU/mL N <15 22 Cyclic Citrullinated Pep Igg <15.6 U 23 Comp Metabolic Panel 06/20/2018 [facility] Sodium 136 mmol/L N 135- 145 [phone] Potassium 4.0 mmol/L N 3.5-5.0 Chloride 103 [...] Egfr 118.8 >60 24 Laboratory test 06/20/2018 [facility] Erythrocyte Sed 32 mm/Hr High 0 -14 25 finding [phone] Rate C Reactive Protein 7.18 mg/L N <8.01 26 Lipid Profile 06/20/2018 [facility] Triglycerides 367 mg/dL 27 (Trig/Chol/HDL) [phone] Cholesterol 263 mg/dL 28 HDL Cholesterol 43.0 mg/dL 29 LDL Cholesterol 147 mg/dL 30 Laboratory test 06/20/2018 [facility] Hemoglobin A1c 6.2 % High 4.0- 5.6 31 finding [phone] (Glyco HGB) TSH (Thyroid Stim Horm) 1.36 mcIU/mL N 0.34-5.60 32 Urine Drug Screen Inhouse 06/12/2018 In House Ua Cocaine + Ua Opiates - Ua Amphetamines - Urine Methanphetamines - Urine Benzodiazepines QN [place] - Urine Oxycodone QL - Urine Drug Screen Inhouse 05/27/2018 In House Ua Cocaine - Ua Opiates - Ua Amphetamines - Urine Methanphetamines - Urine Benzodiazepines QN [place] - Urine Oxycodone QL - Urine Drug 05/08/2018 [facility] Amphetamine Ur None Detected None Detect SCR ED & [phone] Screen Pain Clinic Barbiturates Urine Screen None Detected None Detect Benzodiazepine Urine Screen Presumptive Posi <SEE NOTE> Abnormal None Detect 33 Urine Cannabinoids Screen None Detected None Detect Urine Cocaine Screen Presumptive Posi <SEE NOTE> Abnormal None Detect 34 Urine Opiates Screen None Detected None Detect Urine Phencyclidine Screen None Detected None Detect 35 Comp Metabolic Panel 05/08/2018 [facility] Sodium 137 mmol/L N 135- 145 [phone] Potassium 3.8 mmol/L N 3.5-5.0 Chloride 103 [...] 114.8 >60 36 Laboratory test finding 05/08/2018 [facility] HCG < 0.60 mIU/ mL 37 [phone] Acetaminophen < 15 g/mL 38 Alcohol < 10 mg/dL N <10 Salicylate < 2.50 mg/dL <30 TSH (Thyroid Stim Horm) 1.07 mcIU/mL N 0.34-5.60 CBC Auto Diff 05/08/2018 [facility] White Blood 12.3 10^3/uL High 3.5 -10.8 [phone] Count Red Blood Count 5.06 10^6/uL N [...] Blood Cells % 0.2 Urinalysis Profile 05/08/2018 [facility] Urine Color Yellow [phone] Urine Appearance Cloudy Urine Specific [place] 1.011 N 1.010-1.030 Urine pH 8.0 N [...] Present Abnormal Absent Urine Culture And 05/08/2018 [facility] Urine Culture SEE RESULT 39 Sensitivities [phone] BELOW Urine Drug Screen 04/25/2018 In House Ua Cocaine - Inhouse Ua Opiates - Ua Amphetamines - Urine Methanphetamines - Urine Benzodiazepines QN [place] - Urine Oxycodone QL - Urine Drug Screen Inhouse 04/11/2018 In House Ua Cocaine - Ua Opiates - Ua Amphetamines - Urine Methanphetamines - Urine Benzodiazepines QN [place] - Urine Oxycodone QL - Pthi 01/29/2018 [facility] Calcium (PTH Intact) 9.0 mg/dL N 8.6-10.3 [phone] PTH Intact 5.3 pmol/L N 1.3-9.3 Laboratory test 01/29/2018 [facility] Insulin Level 74.9 mcIU/mL High 2.0-16.0 finding [phone] Basic Metabolic 01/29/2018 [facility] Sodium 138 mmol/L N 135-145 Panel [phone] Potassium 4.3 mmol/L N 3.5-5.0 Chloride 106 mmol/L N 101-111 Co2 Carbon Dioxide 24 mmol/L N 22-32 Anion Gap 8 mmol/L N 2-11 Glucose 106 mg/dL High 70-100 Blood Urea Nitrogen 16 mg/dL N 6-24 Creatinine 0.89 mg/dL N 0.51-0.95 BUN/Creatinine Ratio 18.0 N 8-20 Calcium 9.0 mg/dL N 8.6-10.3 Egfr Non- 69.6 >60 Egfr 84.2 >60 40 Laboratory test 01/29/2018 [facility] TSH (Thyroid 1.55 mcIU/mL N 0.34-5.60 finding [phone] Stim Horm) Ua Inhouse 01/27/2018 In House Ua Glucose - 41 Ua Bilirubin - Ua Ketones - Ua Specific [place] 1.020 Ua Blood sm/ 1+ Ua PH [...] Culture Throat negative Basic Metabolic Panel 11/28/2017 [facility] Sodium 134 mmol/L Low 135 -145 [phone] Potassium 4.3 mmol/L N 3.5-5.0 Chloride 101 mmol/L N 101-111 Co2 Carbon Dioxide 24 mmol/L N 22-32 Anion Gap 9 mmol/L N 2-11 Glucose 104 mg/dL High 70-100 Blood Urea Nitrogen 15 mg/dL N 6-24 Creatinine 0.70 mg/dL N 0.51-0.95 BUN/Creatinine Ratio 21.4 High 8-20 Calcium 9.3 mg/dL N 8.6-10.3 Egfr Non- 91.8 >60 Egfr 118.0 >60 42 CBC Auto Diff 11/28/2017 [facility] White Blood Count 9.6 10^3/uL N 3.5-10.8 [phone] Red Blood Count 4.54 10^6/uL N 4.00-5.40 [...] Blood Cells % 0.1 Laboratory test 11/28/2017 [facility] Erythrocyte Sed 29 mm/Hr High 0 -14 finding [phone] Rate Lyme Disease Serology Negative Negative 43 TSH (Thyroid Stim Horm) 1.95 mcIU/mL N 0.34-5.60 Celiac Panel 11/28/2017 [facility] Tissue Transglutaminase IgA <1.2 U/ mL 44 [phone] Ab Immunoglobulin A 358 mg/dL Abnormal 61 - 356 Celiac Interpretation See Comment 45 Laboratory test finding 09/26/2017 In House Hemoglobin A1c 6.0 Urinalysis Profile 06/24/2017 [facility] Urine Color Yellow [phone] Urine Appearance Cloudy Urine Specific [place] 1.021 N 1.010-1.030 Urine pH 6.0 N [...] Cell Present Abnormal Absent Urine Drug 06/24/2017 [facility] Amphetamine Ur None Detected None Detect SCR ED & [phone] Screen Pain Clinic Barbiturates Urine Screen None Detected None Detect Benzodiazepine Urine Screen None Detected None Detect Urine Cannabinoids Screen None Detected None Detect Urine Cocaine Screen None Detected None Detect Urine Opiates Screen None Detected None Detect Urine Phencyclidine Screen None Detected None Detect 46 Laboratory test 06/24/2017 [facility] Urine Culture And SEE RESULT 47 finding [phone] Sensitivities BELOW CBC Auto Diff 06/24/2017 [facility] White Blood Count 10.4 10^3/uL N 3.5-10 [phone] Red Blood Count 4.85 10^6/uL N [...] Cells % 0.1 Laboratory test finding 06/24/2017 [facility] Lactic Acid 1.9 mmol/L N 0.5-2.0 48 [phone] Comp Metabolic Panel 06/24/2017 [facility] Sodium 134 mmol/L N 133- 145 [phone] Potassium 3.6 mmol/L N 3.5-5.0 Chloride 100 [...] 118.6 >60 49 Laboratory test finding 06/24/2017 [facility] HCG 0.75 mIU/ mL 50 [phone] Acetaminophen < 15 g/mL 51 Alcohol < 10 mg/dL N <10 Salicylate < 2.50 mg/dL <30 CBC Auto Diff 06/12/2017 [facility] White Blood 12.6 10^3/uL High 3.5 -10.8 [phone] Count Red Blood Count 4.39 10^6/uL N [...] Blood Cells % 0 Laboratory test 06/12/2017 [facility] Hemoglobin A1c 6.3 % High 4.0- 5.6 52 finding [phone] (Glyco HGB) Laboratory test 06/12/2017 [facility] HCG 0.80 53 finding [phone] mIU/mL Basic Metabolic 06/12/2017 [facility] Sodium 137 N 133-145 Panel [phone] mmol/L Potassium 3.7 mmol/L N 3.5-5.0 Chloride [...] : [address]: Katy SEGOVIA Acct: [id number] Unit: [id number] AGE: 42 Location: [facility] Re07/15/18 SEX: F Status: REG REF SPEC: [id number] TYLER: 07/15/18-1637 [facility] DR: Katy SEGOVIA REQ: [id number] RECD: 07/16/18-1251 STATUS: SOUT _ ORDERED: TP IMAGE ANALYS, HPV/Thin Prep COMMENTS: [id number] Negative for Intraepithelial lesion or Malignancy Date [...] System. Due to cytologic findings at the bursar microscope, comprehensive manual rescreening by a Commercial Subcontractor may be required. The Pap Smear is [...] years. END OF REPORT DEPARTMENT OF PATHOLOGY, [address] [place] [address] Rashid Mcintosh M.D. Director [facility] # [id number] [address] [facility] Severe Sepsis and Septic Shock Management [...] [address]: Je Rowland MD Acct: [id number] Unit: [id number] AGE: 42 Location: ED Re07/12/18 SEX: F Status: DEP ER SPEC: [id number] TYLER: 07/12/[address]: Kay Dai MD REQ: [id number] RECD: 07/12/18 STATUS: CONNIE GLOVER DR: Joseph Hagen MD _ SOURCE: URINE SPDESC: ORDERED: Urine Culture Procedure Result Reported Site Urine Culture Final 07/14/18- 0850 ML Organism 1 ESCHERICHIA COLI Homer Count >100,000 (Many) CFU/ML 1. ESCHERICHIA COLI [...] . END OF REPORT DEPARTMENT OF PATHOLOGY, [address] [place] [address] Rashid Mcintosh M.D. Director [facility] # [id number] 17 SEE RESULT BELOW Name: ABRIL NGUYEN Pool : [address]: Je Rowland MD Acct: [id number] Unit: [id number] AGE: 42 Location: ED Re07/12/18 SEX: F Status: DEP ER SPEC: [id number] TYLER: 07/12/18 [facility] DR: Kay Dai MD REQ: [id number] RECD: 07/12/18 STATUS: COMP OTHR DR: Joseph [...] . END OF REPORT DEPARTMENT OF PATHOLOGY, [address] [place] [address] Rashid Mcintosh M.D. Director [facility] # [id number] 18 GC/Chlamydia Source?: Endocervical Trichomonas Source: Endocervical 19 FASTING 20 No evidence of antibodies to B. burgdorferi detected. False negative results may occur in recently infected patients (<=2 weeks) due to low or undetectable antibody levels to B. burgdorferi. If recent exposure is suspected, a second sample should be collected and tested in 2-4 weeks. Test Performed by: [facility] [place] [address] 21 REFERENCE VALUE <=1.0 (Negative) Test Performed by: [facility] [place] [address] 22 FASTING 23 REFERENCE VALUE <20.0 (Negative) Test Performed by: [facility] [place] [address] 24 Because ethnic data is not always [...] in selective patients <6.0%. Please refer to [place] [employer] diabetic care guidelines for further [...] [address]: Silvio Madrid MD Acct: [id number] Unit: [id number] AGE: 42 Location: [facility] Re05/08/18 SEX: F Status: ADM IN SPEC: [id number] TYLER: 05/08/18 [facility] DR: Jimmy Deshpande MD REQ: [id number] RECD: 05/08/18 STATUS: CONNIE GLOVER DR: Joseph Hagen MD _ S[facility]: [facility]: ORDERED: Urine Culture Procedure Result Reported Site Urine Culture Final 05/10/18- 925 ML No growth of clinically significant organisms * ML - Main Lab . END OF REPORT DEPARTMENT OF PATHOLOGY, [address] [place] [address] Rashid Mcintosh M.D. Director [facility] # [id number] 40 Because ethnic data is not always [...] 2-4 weeks. Test Performed by: [facility] - [facility] [address] [id number] 44 REFERENCE VALUE <4.0 (Negative) Test Performed by: [place] [id number] Negative serology. Celiac disease unlikely. However, approximately 10% of patients with celiac disease are seronegative. Also, patients who are already adhering to a gluten-free diet may be seronegative. If celiac disease is highly clinically suspected, consider HLA-DQ typing. Test Performed by: [place] [id number] The urine specimen was tested at the listed cutoffs: Drug class test level (ng/mL) Amphetamines 500 Barbiturates 200 Benzodiazepine metabolites 200 Cocaine metabolites 150 Cannabinoids 50 Opiates 300 Pcp 25 Specimen was received without chain of custody. Results should be used for medical purposes only. 47 SEE RESULT BELOW Name: ABRIL NGUYEN : [address]: Je Duarte MD Acct: [id number] Unit: [id number] AGE: 41 Location: ED Re06/24/17 SEX: F Status: DEP ER SPEC: [id number] TYLER: 06/24/[address]: Je Duarte MD REQ: [id number] RECD: 06/24/17 STATUS: CONNIE GLOVER DR: Joseph Hagen MD _ SOURCE: URINE SPDESC: ORDERED: Urine Culture Procedure Result Reported Site Urine Culture Final 06/26/17- 12 ML No growth of clinically significant organisms * ML - MAIN LAB (PSC1) . END OF REPORT * ML=Testing performed at Main Lab DEPARTMENT OF PATHOLOGY, [address] [place] [address] Rashid Mcintosh M.D. Director [facility] # [id number] [address] [facility] Severe Sepsis and Septic Shock Management [...] in selective patients <6.0%. Please refer to [place] [employer] diabetic care guidelines for further [...] dialysis) Procedures Date Code Description Status 12/25/2018 50632 Spirometry Completed 12/15/2018 64245 X-Ray Chest 2 V Completed 06/04/2018 26392027 Mammogram Completed 01/27/2018 65050 Electrocardiogram Complete Completed 01/08/2018 26396 SC/Im Injections Completed 06/13/2017 76749 Visual Acuity Screening Test Completed 05/13/2017 44905 Electrocardiogram Complete Completed Encounters Type Date Location [...] 06/24/2018 1:30p Main Office Xiao F11.20 Opioid dependenceJoseph M.D. uncomplicated Z71.51 Drug abuse [...] F17.210 Nicotine dependence, cigarettes, uncomplicated Z79.899 Other jail (current) drug therapy Office Visit 03/20/2018 9:20a Main Office Katy Sol, L03.115 Cellulitis of P.A. 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
--- OUTSIDE RECORDS SUMMARY | 2019-01-03 06:30 | XMS REPORT | Continuity of Care Document ---
:1975 External Reference #:[id number] Author Name Bhupendra Nunes D.O. 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 Currently Working at [employer] 2018 Right-handed Abuse No history [...] Patient is currently sexually active Age 1st [place] 18 Years Old Allergies, Adverse Reactions, Alerts [...] - 200mg Capsules three times a Shanique Ruzi 12/24/2018 day for cough Benzonatate 1 cap [...] 7 days Gabapentin 1 by mouth at [facility] [place], 04/18/2018 - 300mg Capsules bedtime for 1 Shanique Ruiz 04/18/2018 week then stop it; for pain Suboxone 1 film by mouth 30units F11.20 Silcoff, 04/14/2018 - 2-0.5mg Film every morning; Shanique Ruiz 06/24/2018 rx due 05/28/18; suboxone prescriber #[id number] Suboxone 1 film by mouth 2units F11.20 Silcoff, 04/11/2018 - 2-0.5mg Film every morning Shanique Ruiz 04/14/2018 starting on 04/13/18 (use remaining 8/2 film for 03/18 dose); suboxone prescriber #[id number] Suboxone 1/2 film by 2rivas F11.20 Xiao, 04/10/2018 - 8-2mg Film mouth now; may Shanique Ruiz 04/11/2018 take another 1/2 film today after 4 or more hours; take 1/2 film tomorrow am; suboxone prescriber# [id number] Suboxone 1/2 film by 2films F11.20 Xiao, 04/09/2018 - 8-2mg Film mouth tonightJoseph M.D. 04/10/2018 again tomorrow am and Saturday am; may take 1 more dose Marion stiven; suboxone prescriber# [id number] Nicoderm CQ 1 patch per day 28unshady [...] Dressing daily for wound Shanique Ruiz 03/16/2018 [facility] [place] management right ankle Cephalexin 1 [...] CPT Code Status Date Vaccine Lot # [id number] Given 03/20/2018 Influenza Virus Vaccine, Quadrivalent, Split, [id number] Preservative Free 03091 Given 06/06/2017 MMR Virus Immunization [id number] 83926 Given 06/04/2017 Influenza Virus Vaccine, Quadrivalent, Split, [id number] Preservative Free 33228 Given 12/11/2016 Adacel or Boostrix, TDaP 19198 Given 12/11/2016 MMR Virus Immunization U-Flu Given 04/23/2016 Influenza,Unspecified U-Flu Given 04/02/2013 Influenza,Unspecified 63694 Given 02/27/2012 Flu, Split Virus 3Yrs Vital [...] Rapid Screen negative HIV 1/2 AB 09/23/2018 [facility] HIV 1 2 Nonreactive Nonreactive 1 Evaluation [phone] Antibody Hepatitis C 09/23/2018 [facility] HCV Index < 0.0 Index Antibody [phone] Hepatitis C Antibody Nonreactive Nonreactive Comp Metabolic Panel 09/14/2018 [facility] Sodium 136 mmol/L N 135- 145 [phone] Potassium 4.2 mmol/L N 3.5-5.0 Chloride 104 [...] Egfr 137.9 >60 2 Laboratory test 09/14/2018 [facility] C Reactive 5.52 mg/L N <8.01 finding [phone] Protein CBC No Diff 09/14/2018 [facility] White Blood 11.0 High 3.5-10.8 [phone] Count 10^3/uL Red Blood Count 4.74 10^6/uL [...] fL Low 7.4-10.4 CBC Auto Diff 08/12/2018 [facility] White Blood 12.2 10^3/uL High 3.5 -10.8 [phone] Count Red Blood Count 5.63 10^6/uL High [...] Cells % 0.1 Comp Metabolic Panel 08/12/2018 [facility] Sodium 136 mmol/L N 135- 145 [phone] Potassium 4.0 mmol/L N 3.5-5.0 Chloride 102 [...] 95.2 >60 3 Laboratory test finding 08/12/2018 [facility] Alcohol < 10 mg/dL N < 10 [phone] Salicylate < 2.50 mg/dL <30 TSH (Thyroid Stim Horm) 1.42 mcIU/mL N 0.34-5.60 Acetaminophen 1 g/mL 4 Urinalysis Profile 08/12/2018 [facility] Urine Color Yellow [phone] Urine Appearance Clear Urine Specific [place] 1.017 N 1.010-1.030 Urine pH 6.0 N 5-9 Urine Urobilinogen Negative Negative Urine Ketones Negative Negative Urine Protein Negative Negative Urine Leukocytes Negative Negative Urine Blood Negative Negative Urine Nitrite Negative Negative Urine Bilirubin Negative Negative Urine Glucose Negative Negative Urine Drug 08/12/2018 [facility] Amphetamine Ur None Detected None Detect SCR ED & [phone] Screen Pain Clinic Barbiturates Urine Screen None [...] - Urine Methanphetamines - Urine Benzodiazepines QN [place] - Urine Oxycodone QL + Ua Inhouse 07/31/2018 In House Ua Glucose - 7 Ua Bilirubin mod Ua Ketones - Ua Specific [place] 1.030 Ua Blood lg Ua PH 5.0 Ua Protein 1+ Ua Urobilinogen - Ua Nitrite - Ua Leukocytes - Laboratory test finding 07/16/2018 [facility] HCG < 0.60 mIU/ mL 8 [phone] Erythrocyte Sed Rate 16 mm/Hr High 0-14 CBC Auto Diff 07/16/2018 [facility] White Blood Count 10.8 10^3/uL N 3.5-10.8 [phone] Red Blood Count 5.00 10^6/uL N 4.00-5.40 [...] Cells % 0 Laboratory test finding 07/15/2018 [facility] Cytology SEE RESULT BELOW 9 [phone] Urinalysis Profile 07/12/2018 [facility] Urine Color Velia [phone] Urine Appearance Cloudy Urine Specific [place] 1.026 N 1.010-1.030 Urine pH 6.0 N [...] Present Abnormal Absent CBC Auto Diff 07/12/2018 [facility] White Blood 12.7 10^3/uL High 3.5 -10.8 [phone] Count Red Blood Count 4.98 10^6/uL N [...] Blood Cells % 0.1 Laboratory test 07/12/2018 [facility] Lactic Acid 1.5 mmol/L N 0.5- 2.0 10 finding [phone] Urine Drug SCR 07/12/2018 [facility] Amphetamine Ur None None Detect ED & Pain [phone] Screen Detected Clinic Barbiturates Urine Screen None Detected None Detect Benzodiazepine Urine Screen None Detected None Detect Urine Cannabinoids Screen Presumptive Posi <SEE NOTE> Abnormal None Detect 11 Urine Cocaine Screen Presumptive Posi <SEE NOTE> Abnormal None Detect 12 Urine Opiates Screen None Detected None Detect Urine Phencyclidine Screen None Detected None Detect 13 Comp Metabolic Panel 07/12/2018 [facility] Sodium 138 mmol/L N 135- 145 [phone] Potassium 3.7 mmol/L N 3.5-5.0 Chloride 106 [...] 118.8 >60 14 Laboratory test finding 07/12/2018 [facility] Amylase 45 U/L N 29- 103 [phone] Lipase 45 U/L N 11.0-82.0 C Reactive Protein 15.35 mg/L High <8.01 HCG 0.83 mIU/mL 15 Urine Culture And 07/12/2018 [facility] Urine Culture SEE RESULT 16 Sensitivities [phone] BELOW Laboratory test 07/12/2018 [facility] Gardnerella/Yeas SEE RESULT 17 finding [phone] t: Vaginal Dna BELOW Trichomonas Vaginalis Rna Negative Negative 18 GC/Chlamydia 07/12/2018 [facility] Chlamydia Negative Negative Amplified Rna [phone] trachomatis Rna Neisseria gonorrhoeae (GC) Rna Negative Negative CBC Auto Diff 06/20/2018 [facility] White Blood 11.7 10^3/uL High 3.5 -10.8 [phone] Count Red Blood Count 5.61 10^6/uL High [...] Blood Cells % 0 Laboratory test 06/20/2018 [facility] Vitamin D Total 19.4 ng/mL Low 20-50 19 finding [phone] 25(Oh) Lyme Disease Serology Negative Negative 20 Anti Nuclear Antibody 0.2 U 21 Rheumatoid Factor < 10 IU/mL N <15 22 Cyclic Citrullinated Pep Igg <15.6 U 23 Comp Metabolic Panel 06/20/2018 [facility] Sodium 136 mmol/L N 135- 145 [phone] Potassium 4.0 mmol/L N 3.5-5.0 Chloride 103 [...] Egfr 118.8 >60 24 Laboratory test 06/20/2018 [facility] Erythrocyte Sed 32 mm/Hr High 0 -14 25 finding [phone] Rate C Reactive Protein 7.18 mg/L N <8.01 26 Lipid Profile 06/20/2018 [facility] Triglycerides 367 mg/dL 27 (Trig/Chol/HDL) [phone] Cholesterol 263 mg/dL 28 HDL Cholesterol 43.0 mg/dL 29 LDL Cholesterol 147 mg/dL 30 Laboratory test 06/20/2018 [facility] Hemoglobin A1c 6.2 % High 4.0- 5.6 31 finding [phone] (Glyco HGB) TSH (Thyroid Stim Horm) 1.36 mcIU/mL N 0.34-5.60 32 Urine Drug Screen Inhouse 06/12/2018 In House Ua Cocaine + Ua Opiates - Ua Amphetamines - Urine Methanphetamines - Urine Benzodiazepines QN [place] - Urine Oxycodone QL - Urine Drug Screen Inhouse 05/27/2018 In House Ua Cocaine - Ua Opiates - Ua Amphetamines - Urine Methanphetamines - Urine Benzodiazepines QN [place] - Urine Oxycodone QL - Urine Drug 05/08/2018 [facility] Amphetamine Ur None Detected None Detect SCR ED & [phone] Screen Pain Clinic Barbiturates Urine Screen None Detected None Detect Benzodiazepine Urine Screen Presumptive Posi <SEE NOTE> Abnormal None Detect 33 Urine Cannabinoids Screen None Detected None Detect Urine Cocaine Screen Presumptive Posi <SEE NOTE> Abnormal None Detect 34 Urine Opiates Screen None Detected None Detect Urine Phencyclidine Screen None Detected None Detect 35 Comp Metabolic Panel 05/08/2018 [facility] Sodium 137 mmol/L N 135- 145 [phone] Potassium 3.8 mmol/L N 3.5-5.0 Chloride 103 [...] 114.8 >60 36 Laboratory test finding 05/08/2018 [facility] HCG < 0.60 mIU/ mL 37 [phone] Acetaminophen < 15 g/mL 38 Alcohol < 10 mg/dL N <10 Salicylate < 2.50 mg/dL <30 TSH (Thyroid Stim Horm) 1.07 mcIU/mL N 0.34-5.60 CBC Auto Diff 05/08/2018 [facility] White Blood 12.3 10^3/uL High 3.5 -10.8 [phone] Count Red Blood Count 5.06 10^6/uL N [...] Blood Cells % 0.2 Urinalysis Profile 05/08/2018 [facility] Urine Color Yellow [phone] Urine Appearance Cloudy Urine Specific [place] 1.011 N 1.010-1.030 Urine pH 8.0 N [...] Present Abnormal Absent Urine Culture And 05/08/2018 [facility] Urine Culture SEE RESULT 39 Sensitivities [phone] BELOW Urine Drug Screen 04/25/2018 In House Ua Cocaine - Inhouse Ua Opiates - Ua Amphetamines - Urine Methanphetamines - Urine Benzodiazepines QN [place] - Urine Oxycodone QL - Urine Drug Screen Inhouse 04/11/2018 In House Ua Cocaine - Ua Opiates - Ua Amphetamines - Urine Methanphetamines - Urine Benzodiazepines QN [place] - Urine Oxycodone QL - Pthi 01/29/2018 [facility] Calcium (PTH Intact) 9.0 mg/dL N 8.6-10.3 [phone] PTH Intact 5.3 pmol/L N 1.3-9.3 Laboratory test 01/29/2018 [facility] Insulin Level 74.9 mcIU/mL High 2.0-16.0 finding [phone] Basic Metabolic 01/29/2018 [facility] Sodium 138 mmol/L N 135-145 Panel [phone] Potassium 4.3 mmol/L N 3.5-5.0 Chloride 106 mmol/L N 101-111 Co2 Carbon Dioxide 24 mmol/L N 22-32 Anion Gap 8 mmol/L N 2-11 Glucose 106 mg/dL High 70-100 Blood Urea Nitrogen 16 mg/dL N 6-24 Creatinine 0.89 mg/dL N 0.51-0.95 BUN/Creatinine Ratio 18.0 N 8-20 Calcium 9.0 mg/dL N 8.6-10.3 Egfr Non- 69.6 >60 Egfr 84.2 >60 40 Laboratory test 01/29/2018 [facility] TSH (Thyroid 1.55 mcIU/mL N 0.34-5.60 finding [phone] Stim Horm) Ua Inhouse 01/27/2018 In House Ua Glucose - 41 Ua Bilirubin - Ua Ketones - Ua Specific [place] 1.020 Ua Blood sm/ 1+ Ua PH [...] Culture Throat negative Basic Metabolic Panel 11/28/2017 [facility] Sodium 134 mmol/L Low 135 -145 [phone] Potassium 4.3 mmol/L N 3.5-5.0 Chloride 101 mmol/L N 101-111 Co2 Carbon Dioxide 24 mmol/L N 22-32 Anion Gap 9 mmol/L N 2-11 Glucose 104 mg/dL High 70-100 Blood Urea Nitrogen 15 mg/dL N 6-24 Creatinine 0.70 mg/dL N 0.51-0.95 BUN/Creatinine Ratio 21.4 High 8-20 Calcium 9.3 mg/dL N 8.6-10.3 Egfr Non- 91.8 >60 Egfr 118.0 >60 42 CBC Auto Diff 11/28/2017 [facility] White Blood Count 9.6 10^3/uL N 3.5-10.8 [phone] Red Blood Count 4.54 10^6/uL N 4.00-5.40 [...] Blood Cells % 0.1 Laboratory test 11/28/2017 [facility] Erythrocyte Sed 29 mm/Hr High 0 -14 finding [phone] Rate Lyme Disease Serology Negative Negative 43 TSH (Thyroid Stim Horm) 1.95 mcIU/mL N 0.34-5.60 Celiac Panel 11/28/2017 [facility] Tissue Transglutaminase IgA <1.2 U/ mL 44 [phone] Ab Immunoglobulin A 358 mg/dL Abnormal 61 - 356 Celiac Interpretation See Comment 45 Laboratory test finding 09/26/2017 In House Hemoglobin A1c 6.0 Urinalysis Profile 06/24/2017 [facility] Urine Color Yellow [phone] Urine Appearance Cloudy Urine Specific [place] 1.021 N 1.010-1.030 Urine pH 6.0 N [...] Cell Present Abnormal Absent Urine Drug 06/24/2017 [facility] Amphetamine Ur None Detected None Detect SCR ED & [phone] Screen Pain Clinic Barbiturates Urine Screen None Detected None Detect Benzodiazepine Urine Screen None Detected None Detect Urine Cannabinoids Screen None Detected None Detect Urine Cocaine Screen None Detected None Detect Urine Opiates Screen None Detected None Detect Urine Phencyclidine Screen None Detected None Detect 46 Laboratory test 06/24/2017 [facility] Urine Culture And SEE RESULT 47 finding [phone] Sensitivities BELOW CBC Auto Diff 06/24/2017 [facility] White Blood Count 10.4 10^3/uL N 3.5-10 [phone] Red Blood Count 4.85 10^6/uL N [...] Cells % 0.1 Laboratory test finding 06/24/2017 [facility] Lactic Acid 1.9 mmol/L N 0.5-2.0 48 [phone] Comp Metabolic Panel 06/24/2017 [facility] Sodium 134 mmol/L N 133- 145 [phone] Potassium 3.6 mmol/L N 3.5-5.0 Chloride 100 [...] 118.6 >60 49 Laboratory test finding 06/24/2017 [facility] HCG 0.75 mIU/ mL 50 [phone] Acetaminophen < 15 g/mL 51 Alcohol < 10 mg/dL N <10 Salicylate < 2.50 mg/dL <30 CBC Auto Diff 06/12/2017 [facility] White Blood 12.6 10^3/uL High 3.5 -10.8 [phone] Count Red Blood Count 4.39 10^6/uL N [...] Blood Cells % 0 Laboratory test 06/12/2017 [facility] Hemoglobin A1c 6.3 % High 4.0- 5.6 52 finding [phone] (Glyco HGB) Laboratory test 06/12/2017 [facility] HCG 0.80 53 finding [phone] mIU/mL Basic Metabolic 06/12/2017 [facility] Sodium 137 N 133-145 Panel [phone] mmol/L Potassium 3.7 mmol/L N 3.5-5.0 Chloride [...] : [address]: Katy SEGOVIA Acct: [id number] Unit: [id number] AGE: 42 Location: [facility] Re07/15/18 SEX: F Status: REG REF SPEC: [id number] TYLER: 07/15/18-[address] [facility] [address]: Katy SEGOVIA REQ: [id number] RECD: 07/16/18-1251 STATUS: SOUT _ ORDERED: TP IMAGE ANALYS, HPV/Thin Prep COMMENTS: [id number] Negative for Intraepithelial lesion or Malignancy Date [...] System. Due to cytologic findings at the annual greenhouse manager microscope, comprehensive manual rescreening by a Senior Lead Software Engineer may be required. The Pap Smear [...] years. END OF REPORT DEPARTMENT OF PATHOLOGY, [address] [place] [address] Rashid Mcintosh M.D. Director [facility] # [id number] 10 [facility] Severe Sepsis and Septic Shock Management [...] [address]: Je Rowland MD Acct: [id number] Unit: [id number] AGE: 42 Location: ED Re07/12/18 SEX: F Status: DEP ER SPEC: [id number] TYLER: 07/12/[address]: Kay Dai MD REQ: [id number] RECD: 07/12/18 STATUS: CONNIE GLOVER DR: Joseph Hagen MD _ SOURCE: URINE SPDESC: ORDERED: Urine Culture Procedure Result Reported Site Urine Culture Final 07/14/18- 0850 ML Organism 1 ESCHERICHIA COLI [place] Count >100,000 (Many) CFU/ML 1. ESCHERICHIA COLI [...] . END OF REPORT DEPARTMENT OF PATHOLOGY, [address] [place] [address] Rashid Mcintosh M.D. Director [facility] # [id number] 17 SEE RESULT BELOW Name: ABRIL NGUYEN Pool : [address]: Je Rowland MD Acct: [id number] Unit: [id number] AGE: 42 Location: ED Re07/12/18 SEX: F Status: DEP ER SPEC: [id number] TYLER: 07/12/[address] [facility] [address]: Kay Dai MD REQ: [id number] RECD: 07/12/18 STATUS: COMP OTHR DR: Joseph [...] . END OF REPORT DEPARTMENT OF PATHOLOGY, [address] [place] [address] Rashid Mcintosh M.D. Director [facility] # [id number] 18 GC/Chlamydia Source?: Endocervical Trichomonas Source: Endocervical 19 FASTING 20 No evidence of antibodies to B. burgdorferi detected. False negative results may occur in recently infected patients (<=2 weeks) due to low or undetectable antibody levels to B. burgdorferi. If recent exposure is suspected, a second sample should be collected and tested in 2-4 weeks. Test Performed by: [facility] [place] [address] 21 REFERENCE VALUE <=1.0 (Negative) Test Performed by: [facility] [place] [address] 22 FASTING 23 REFERENCE VALUE <20.0 (Negative) Test Performed by: [facility] [place] [address] 24 Because ethnic data is not always [...] in selective patients <6.0%. Please refer to [place] [employer] diabetic care guidelines for further [...] [address]: Silvio Madrid MD Acct: [id number] Unit: [id number] AGE: 42 Location: [facility] Re05/08/18 SEX: F Status: ADM IN SPEC: [id number] TYLER: 05/08/[address] [facility] [address]: Jimmy Deshpande MD REQ: [id number] RECD: 05/08/18 STATUS: CONNIE GLOVER DR: Joseph Hagen MD _ SOURCE: [facility]: ORDERED: Urine Culture Procedure Result Reported Site Urine Culture Final 05/10/18- 925 ML No growth of clinically significant organisms * ML - Main Lab . END OF REPORT DEPARTMENT OF PATHOLOGY, [address] [place] [address] Rashid Mcintosh M.D. Director [facility] # [id number] 40 Because ethnic data is not always [...] 2-4 weeks. Test Performed by: [facility] [address] [id number] 44 REFERENCE VALUE <4.0 (Negative) Test Performed by: [place] [id number] Negative serology. Celiac disease unlikely. However, approximately 10% of patients with celiac disease are seronegative. Also, patients who are already adhering to a gluten-free diet may be seronegative. If celiac disease is highly clinically suspected, consider HLA-DQ typing. Test Performed by: [place] [id number] The urine specimen was tested at the listed cutoffs: Drug class test level (ng/mL) Amphetamines 500 Barbiturates 200 Benzodiazepine metabolites 200 Cocaine metabolites 150 Cannabinoids 50 Opiates 300 Pcp 25 Specimen was received without chain of custody. Results should be used for medical purposes only. 47 SEE RESULT BELOW Name: ABRIL NGUYEN : [address]: Je Duarte MD Acct: [id number] Unit: [id number] AGE: 41 Location: ED Re06/24/17 SEX: F Status: DEP ER SPEC: [id number] TYLER: 06/24/[address]: Je Duarte MD REQ: [id number] RECD: 06/24/17 STATUS: CONNIE GLOVER DR: Joseph Hagen MD _ SOURCE: URINE SPDESC: ORDERED: Urine Culture Procedure Result Reported Site Urine Culture Final 06/26/17- 12 ML No growth of clinically significant organisms * ML - MAIN LAB (PSC1) . END OF REPORT * ML=Testing performed at Main Lab DEPARTMENT OF PATHOLOGY, [address] [place] [address] Rashid Mcintosh M.D. Director [facility] # [id number] 48 [facility] Severe Sepsis and Septic Shock Management [...] in selective patients <6.0%. Please refer to [place] [employer] diabetic care guidelines for further [...] dialysis) Procedures Date Code Description Status 12/25/2018 89271 Spirometry Completed 12/15/2018 84349 X-Ray Chest 2 V Completed 06/04/2018 [id number] Mammogram Completed 01/27/2018 71082 Electrocardiogram Complete Completed 01/08/2018 80393 SC/Im Injections Completed 06/13/2017 39629 Visual Acuity Screening Test Completed 05/13/2017 79692 Electrocardiogram Complete Completed Encounters Type Date Location [...] fatigue Office Visit 04/14/2018 3:00p Main Office Xaio F11.20 Opioid dependence, Shanique Ruiz uncomplicated R53.83 Other fatigue Office Visit 04/11/2018 4:00p Main Office Xiao F11.20 Opioid dependence, Shanique Ruiz uncomplicated R53.83 Other fatigue Office Visit 04/09/2018 3:45p Main Office Xiao F11.20 Opioid dependence, Shanique Ruiz uncomplicated Office Visit 04/03/2018 3:20p Main Office Katy Sol, G47.33 Obstructive sleep P.A. apnea (adult) (pediatric) E66.9 Obesity, unspecified F17.210 Nicotine dependence, cigarettes, uncomplicated Z79.899 Other prison (current) drug therapy Office Visit 03/20/2018 9:20a Main Office Katy Sol, L03.115 Cellulitis of P.A. 

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
--- OUTSIDE RECORDS SUMMARY | 2019-01-03 06:32 | XMS REPORT | Continuity of Care Document ---
:1975 External Reference #:[id number] Author Name Bhupendra Nunes D.O. 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 Currently Working at [employer] 2018 Right-handed Abuse No history [...] Patient is currently sexually active Age 1st Sparkman 18 Years Old Allergies, Adverse Reactions, Alerts [...] 7 days Gabapentin 1 by mouth at [facility], 04/18/2018 - 300mg Capsules bedtime for 1 Shanique Ruiz 04/18/2018 week then stop it; for pain Suboxone 1 film by mouth 30units F11.20 Silcoff, 04/14/2018 - 2-0.5mg Film every morning; Shanique Ruiz 06/24/2018 rx due 05/28/18; suboxone prescriber #[id number] Suboxone 1 film by mouth 2units F11.20 Silcoff, 04/11/2018 - 2-0.5mg Film every morning Shanique Ruiz 04/14/2018 starting on 04/13/18 (use remaining 8/2 film for 03/18 dose); suboxone prescriber #[id number] Suboxone 1/2 film by 2rivas F11.20 Xiao, 04/10/2018 - 8-2mg Film mouth now; may Shanique Ruiz 04/11/2018 take another 1/2 film today after 4 or more hours; take 1/2 film tomorrow am; suboxone prescriber# [id number] Suboxone 1/2 film by 2films F11.20 Xiao, 04/09/2018 - 8-2mg Film mouth tonightJoseph M.D. 04/10/2018 again tomorrow am and Saturday am; may take 1 more dose Marion stiven; suboxone prescriber# [id number] Nicoderm CQ 1 patch per day 28unshady [...] Dressing daily for wound Shanique Ruiz 03/16/2018 [facility] Gel care management right ankle Cephalexin 1 [...] 07/12/2017 - Powder three times a Shanique uRiz 07/12/2017 day Cyclobenzaprine HCL 1 tab by [...] CPT Code Status Date Vaccine Lot # [id number] Given 03/20/2018 Influenza Virus Vaccine, Quadrivalent, Split, [id number] Preservative Free 94896 Given 06/06/2017 MMR Virus Immunization [id number] 94250 Given 06/04/2017 Influenza Virus Vaccine, Quadrivalent, Split, [id number] Preservative Free 79713 Given 12/11/2016 Adacel or Boostrix, TDaP 42352 Given 12/11/2016 MMR Virus Immunization U-Flu Given 04/23/2016 Influenza,Unspecified U-Flu Given 04/02/2013 Influenza,Unspecified 21133 Given 02/27/2012 Flu, Split Virus 3Yrs Vital [...] Rapid Screen negative HIV 1/2 AB 09/23/2018 [facility] HIV 1 2 Nonreactive Nonreactive 1 Evaluation [phone] Antibody Hepatitis C 09/23/2018 [facility] HCV Index < 0.0 Index Antibody [phone] Hepatitis C Antibody Nonreactive Nonreactive Comp Metabolic Panel 09/14/2018 [facility] Sodium 136 mmol/L N 135- 145 [phone] Potassium 4.2 mmol/L N 3.5-5.0 Chloride 104 [...] Egfr 137.9 >60 2 Laboratory test 09/14/2018 [facility] C Reactive 5.52 mg/L N <8.01 finding [phone] Protein CBC No Diff 09/14/2018 [facility] White Blood 11.0 High 3.5-10.8 [phone] Count 10^3/uL Red Blood Count 4.74 10^6/uL [...] fL Low 7.4-10.4 CBC Auto Diff 08/12/2018 [facility] White Blood 12.2 10^3/uL High 3.5 -10.8 [phone] Count Red Blood Count 5.63 10^6/uL High [...] Cells % 0.1 Comp Metabolic Panel 08/12/2018 [facility] Sodium 136 mmol/L N 135- 145 [phone] Potassium 4.0 mmol/L N 3.5-5.0 Chloride 102 [...] 95.2 >60 3 Laboratory test finding 08/12/2018 [facility] Alcohol < 10 mg/dL N < 10 [phone] Salicylate < 2.50 mg/dL <30 TSH (Thyroid Stim Horm) 1.42 mcIU/mL N 0.34-5.60 Acetaminophen 1 g/mL 4 Urinalysis Profile 08/12/2018 [facility] Urine Color Yellow [phone] Urine Appearance Clear Urine Specific [place] 1.017 N 1.010-1.030 Urine pH 6.0 N 5-9 Urine Urobilinogen Negative Negative Urine Ketones Negative Negative Urine Protein Negative Negative Urine Leukocytes Negative Negative Urine Blood Negative Negative Urine Nitrite Negative Negative Urine Bilirubin Negative Negative Urine Glucose Negative Negative Urine Drug 08/12/2018 [facility] Amphetamine Ur None Detected None Detect SCR ED & [phone] Screen Pain Clinic Barbiturates Urine Screen None [...] - Urine Methanphetamines - Urine Benzodiazepines QN [place] - Urine Oxycodone QL + Ua Inhouse 07/31/2018 In House Ua Glucose - 7 Ua Bilirubin mod Ua Ketones - Ua Specific [place] 1.030 Ua Blood lg Ua PH 5.0 Ua Protein 1+ Ua Urobilinogen - Ua Nitrite - Ua Leukocytes - Laboratory test finding 07/16/2018 [facility] HCG < 0.60 mIU/ mL 8 [phone] Erythrocyte Sed Rate 16 mm/Hr High 0-14 CBC Auto Diff 07/16/2018 [facility] White Blood Count 10.8 10^3/uL N 3.5-10.8 [phone] Red Blood Count 5.00 10^6/uL N 4.00-5.40 [...] Cells % 0 Laboratory test finding 07/15/2018 [facility] Cytology SEE RESULT BELOW 9 [phone] Urinalysis Profile 07/12/2018 [facility] Urine Color Velia [phone] Urine Appearance Cloudy Urine Specific [place] 1.026 N 1.010-1.030 Urine pH 6.0 N [...] Present Abnormal Absent CBC Auto Diff 07/12/2018 [facility] White Blood 12.7 10^3/uL High 3.5 -10.8 [phone] Count Red Blood Count 4.98 10^6/uL N [...] Blood Cells % 0.1 Laboratory test 07/12/2018 [facility] Lactic Acid 1.5 mmol/L N 0.5- 2.0 10 finding [phone] Urine Drug SCR 07/12/2018 [facility] Amphetamine Ur None None Detect ED & Pain [phone] Screen Detected Clinic Barbiturates Urine Screen None Detected None Detect Benzodiazepine Urine Screen None Detected None Detect Urine Cannabinoids Screen Presumptive Posi <SEE NOTE> Abnormal None Detect 11 Urine Cocaine Screen Presumptive Posi <SEE NOTE> Abnormal None Detect 12 Urine Opiates Screen None Detected None Detect Urine Phencyclidine Screen None Detected None Detect 13 Comp Metabolic Panel 07/12/2018 [facility] Sodium 138 mmol/L N 135- 145 [phone] Potassium 3.7 mmol/L N 3.5-5.0 Chloride 106 [...] 118.8 >60 14 Laboratory test finding 07/12/2018 [facility] Amylase 45 U/L N 29- 103 [phone] Lipase 45 U/L N 11.0-82.0 C Reactive Protein 15.35 mg/L High <8.01 HCG 0.83 mIU/mL 15 Urine Culture And 07/12/2018 [facility] Urine Culture SEE RESULT 16 Sensitivities [phone] BELOW Laboratory test 07/12/2018 [facility] Gardnerella/Yeas SEE RESULT 17 finding [phone] t: Vaginal Dna BELOW Trichomonas Vaginalis Rna Negative Negative 18 GC/Chlamydia 07/12/2018 [facility] Chlamydia Negative Negative Amplified Rna [phone] trachomatis Rna Neisseria gonorrhoeae (GC) Rna Negative Negative CBC Auto Diff 06/20/2018 [facility] White Blood 11.7 10^3/uL High 3.5 -10.8 [phone] Count Red Blood Count 5.61 10^6/uL High [...] Blood Cells % 0 Laboratory test 06/20/2018 [facility] Vitamin D Total 19.4 ng/mL Low 20-50 19 finding [phone] 25(Oh) Lyme Disease Serology Negative Negative 20 Anti Nuclear Antibody 0.2 U 21 Rheumatoid Factor < 10 IU/mL N <15 22 Cyclic Citrullinated Pep Igg <15.6 U 23 Comp Metabolic Panel 06/20/2018 [facility] Sodium 136 mmol/L N 135- 145 [phone] Potassium 4.0 mmol/L N 3.5-5.0 Chloride 103 [...] Egfr 118.8 >60 24 Laboratory test 06/20/2018 [facility] Erythrocyte Sed 32 mm/Hr High 0 -14 25 finding [phone] Rate C Reactive Protein 7.18 mg/L N <8.01 26 Lipid Profile 06/20/2018 [facility] Triglycerides 367 mg/dL 27 (Trig/Chol/HDL) [phone] Cholesterol 263 mg/dL 28 HDL Cholesterol 43.0 mg/dL 29 LDL Cholesterol 147 mg/dL 30 Laboratory test 06/20/2018 [facility] Hemoglobin A1c 6.2 % High 4.0- 5.6 31 finding [phone] (Glyco HGB) TSH (Thyroid Stim Horm) 1.36 mcIU/mL N 0.34-5.60 32 Urine Drug Screen Inhouse 06/12/2018 In House Ua Cocaine + Ua Opiates - Ua Amphetamines - Urine Methanphetamines - Urine Benzodiazepines QN [place] - Urine Oxycodone QL - Urine Drug Screen Inhouse 05/27/2018 In House Ua Cocaine - Ua Opiates - Ua Amphetamines - Urine Methanphetamines - Urine Benzodiazepines QN [place] - Urine Oxycodone QL - Urine Drug 05/08/2018 [facility] Amphetamine Ur None Detected None Detect SCR ED & [phone] Screen Pain Clinic Barbiturates Urine Screen None Detected None Detect Benzodiazepine Urine Screen Presumptive Posi <SEE NOTE> Abnormal None Detect 33 Urine Cannabinoids Screen None Detected None Detect Urine Cocaine Screen Presumptive Posi <SEE NOTE> Abnormal None Detect 34 Urine Opiates Screen None Detected None Detect Urine Phencyclidine Screen None Detected None Detect 35 Comp Metabolic Panel 05/08/2018 [facility] Sodium 137 mmol/L N 135- 145 [phone] Potassium 3.8 mmol/L N 3.5-5.0 Chloride 103 [...] 114.8 >60 36 Laboratory test finding 05/08/2018 [facility] HCG < 0.60 mIU/ mL 37 [phone] Acetaminophen < 15 g/mL 38 Alcohol < 10 mg/dL N <10 Salicylate < 2.50 mg/dL <30 TSH (Thyroid Stim Horm) 1.07 mcIU/mL N 0.34-5.60 CBC Auto Diff 05/08/2018 [facility] White Blood 12.3 10^3/uL High 3.5 -10.8 [phone] Count Red Blood Count 5.06 10^6/uL N [...] Blood Cells % 0.2 Urinalysis Profile 05/08/2018 [facility] Urine Color Yellow [phone] Urine Appearance Cloudy Urine Specific [place] 1.011 N 1.010-1.030 Urine pH 8.0 N [...] Present Abnormal Absent Urine Culture And 05/08/2018 [facility] Urine Culture SEE RESULT 39 Sensitivities [phone] BELOW Urine Drug Screen 04/25/2018 In House Ua Cocaine - Inhouse Ua Opiates - Ua Amphetamines - Urine Methanphetamines - Urine Benzodiazepines QN [place] - Urine Oxycodone QL - Urine Drug Screen Inhouse 04/11/2018 In House Ua Cocaine - Ua Opiates - Ua Amphetamines - Urine Methanphetamines - Urine Benzodiazepines QN [place] - Urine Oxycodone QL - Pthi 01/29/2018 [facility] Calcium (PTH Intact) 9.0 mg/dL N 8.6-10.3 [phone] PTH Intact 5.3 pmol/L N 1.3-9.3 Laboratory test 01/29/2018 [facility] Insulin Level 74.9 mcIU/mL High 2.0-16.0 finding [phone] Basic Metabolic 01/29/2018 [facility] Sodium 138 mmol/L N 135-145 Panel [phone] Potassium 4.3 mmol/L N 3.5-5.0 Chloride 106 mmol/L N 101-111 Co2 Carbon Dioxide 24 mmol/L N 22-32 Anion Gap 8 mmol/L N 2-11 Glucose 106 mg/dL High 70-100 Blood Urea Nitrogen 16 mg/dL N 6-24 Creatinine 0.89 mg/dL N 0.51-0.95 BUN/Creatinine Ratio 18.0 N 8-20 Calcium 9.0 mg/dL N 8.6-10.3 Egfr Non- 69.6 >60 Egfr 84.2 >60 40 Laboratory test 01/29/2018 [facility] TSH (Thyroid 1.55 mcIU/mL N 0.34-5.60 finding [phone] Stim Horm) Ua Inhouse 01/27/2018 In House Ua Glucose - 41 Ua Bilirubin - Ua Ketones - Ua Specific [place] 1.020 Ua Blood sm/ 1+ Ua PH [...] Culture Throat negative Basic Metabolic Panel 11/28/2017 [facility] Sodium 134 mmol/L Low 135 -145 [phone] Potassium 4.3 mmol/L N 3.5-5.0 Chloride 101 mmol/L N 101-111 Co2 Carbon Dioxide 24 mmol/L N 22-32 Anion Gap 9 mmol/L N 2-11 Glucose 104 mg/dL High 70-100 Blood Urea Nitrogen 15 mg/dL N 6-24 Creatinine 0.70 mg/dL N 0.51-0.95 BUN/Creatinine Ratio 21.4 High 8-20 Calcium 9.3 mg/dL N 8.6-10.3 Egfr Non- 91.8 >60 Egfr 118.0 >60 42 CBC Auto Diff 11/28/2017 [facility] White Blood Count 9.6 10^3/uL N 3.5-10.8 [phone] Red Blood Count 4.54 10^6/uL N 4.00-5.40 [...] Blood Cells % 0.1 Laboratory test 11/28/2017 [facility] Erythrocyte Sed 29 mm/Hr High 0 -14 finding [phone] Rate Lyme Disease Serology Negative Negative 43 TSH (Thyroid Stim Horm) 1.95 mcIU/mL N 0.34-5.60 Celiac Panel 11/28/2017 [facility] Tissue Transglutaminase IgA <1.2 U/ mL 44 [phone] Ab Immunoglobulin A 358 mg/dL Abnormal 61 - 356 Celiac Interpretation See Comment 45 Laboratory test finding 09/26/2017 In House Hemoglobin A1c 6.0 Urinalysis Profile 06/24/2017 [facility] Urine Color Yellow [phone] Urine Appearance Cloudy Urine Specific [place] 1.021 N 1.010-1.030 Urine pH 6.0 N [...] Cell Present Abnormal Absent Urine Drug 06/24/2017 [facility] Amphetamine Ur None Detected None Detect SCR ED & [phone] Screen Pain Clinic Barbiturates Urine Screen None Detected None Detect Benzodiazepine Urine Screen None Detected None Detect Urine Cannabinoids Screen None Detected None Detect Urine Cocaine Screen None Detected None Detect Urine Opiates Screen None Detected None Detect Urine Phencyclidine Screen None Detected None Detect 46 Laboratory test 06/24/2017 [facility] Urine Culture And SEE RESULT 47 finding [phone] Sensitivities BELOW CBC Auto Diff 06/24/2017 [facility] White Blood Count 10.4 10^3/uL N 3.5-10 [phone] Red Blood Count 4.85 10^6/uL N [...] Cells % 0.1 Laboratory test finding 06/24/2017 [facility] Lactic Acid 1.9 mmol/L N 0.5-2.0 48 [phone] Comp Metabolic Panel 06/24/2017 [facility] Sodium 134 mmol/L N 133- 145 [phone] Potassium 3.6 mmol/L N 3.5-5.0 Chloride 100 [...] 118.6 >60 49 Laboratory test finding 06/24/2017 [facility] HCG 0.75 mIU/ mL 50 [phone] Acetaminophen < 15 g/mL 51 Alcohol < 10 mg/dL N <10 Salicylate < 2.50 mg/dL <30 CBC Auto Diff 06/12/2017 [facility] White Blood 12.6 10^3/uL High 3.5 -10.8 [phone] Count Red Blood Count 4.39 10^6/uL N [...] Blood Cells % 0 Laboratory test 06/12/2017 [facility] Hemoglobin A1c 6.3 % High 4.0- 5.6 52 finding [phone] (Glyco HGB) Laboratory test 06/12/2017 [facility] HCG 0.80 53 finding [phone] mIU/mL Basic Metabolic 06/12/2017 [facility] Sodium 137 N 133-145 Panel [phone] mmol/L Potassium 3.7 mmol/L N 3.5-5.0 Chloride [...] : [address]: Katy SEGOVIA Acct: [id number] Unit: [id number] AGE: 42 Location: [facility] Re07/15/18 SEX: F Status: REG REF SPEC: [id number] TYLER: 07/15/18-[address] [facility] [address]: Katy SEGOVIA REQ: [id number] RECD: 07/16/18-1251 STATUS: SOUT _ ORDERED: TP IMAGE ANALYS, HPV/Thin Prep COMMENTS: [id number] Negative for Intraepithelial lesion or Malignancy Date [...] System. Due to cytologic findings at the doctor's assistant microscope, comprehensive manual rescreening by a Overlay Plastician may be required. The Pap Smear is [...] years. END OF REPORT DEPARTMENT OF PATHOLOGY, [address] [place] [address] Rashid Mcintosh M.D. Director [facility] # [id number] [facility] Severe Sepsis and Septic Shock Management Bundle [...] [address]: Je Rowland MD Acct: [id number] Unit: [id number] AGE: 42 Location: ED Re07/12/18 SEX: F Status: DEP ER SPEC: [id number] TYLER: 07/12/[address]: Kay Dai MD REQ: [id number] RECD: 07/12/18 STATUS: CONNIE GLOVER DR: Joseph Hagen MD _ SOURCE: URINE SPDESC: ORDERED: Urine Culture Procedure Result Reported Site Urine Culture Final 07/14/18- 0850 ML Organism 1 ESCHERICHIA COLI Rogers Count >100,000 (Many) CFU/ML 1. ESCHERICHIA COLI [...] . END OF REPORT DEPARTMENT OF PATHOLOGY, [address] [place] [address] Rashid Mcintosh M.D. Director [facility] # [id number] 17 SEE RESULT BELOW Name: ABRIL NGUYEN Pool : [address]: Je Rowland MD Acct: [id number] Unit: [id number] AGE: 42 Location: ED Re07/12/18 SEX: F Status: DEP ER SPEC: [id number] TYLER: 07/12/[address] [facility] [address]: Kay Dai MD REQ: [id number] RECD: 07/12/18 STATUS: COMP OTHR DR: Joseph [...] . END OF REPORT DEPARTMENT OF PATHOLOGY, [address] [place] [address] Rashid Mcintosh M.D. Director [facility] # [id number] 18 GC/Chlamydia Source?: Endocervical Trichomonas Source: Endocervical 19 FASTING 20 No evidence of antibodies to B. burgdorferi detected. False negative results may occur in recently infected patients (<=2 weeks) due to low or undetectable antibody levels to B. burgdorferi. If recent exposure is suspected, a second sample should be collected and tested in 2-4 weeks. Test Performed by: [facility] [place] [address] 21 REFERENCE VALUE <=1.0 (Negative) Test Performed by: [facility] [place] [address] 22 FASTING 23 REFERENCE VALUE <20.0 (Negative) Test Performed by: [facility] [place] [address] 24 Because ethnic data is not always [...] in selective patients <6.0%. Please refer to [place] [employer] diabetic care guidelines for further [...] [address]: Silvio Madrid MD Acct: [id number] Unit: [id number] AGE: 42 Location: [facility] Re05/08/18 SEX: F Status: ADM IN SPEC: [id number] TYLER: 05/08/[address] [facility] [address]: Jimmy Deshpande MD REQ: [id number] RECD: 05/08/18 STATUS: CONNIE GLOVER DR: Joseph Hagen MD _ SOURCE: [facility]: ORDERED: Urine Culture Procedure Result Reported Site Urine Culture Final 05/10/18- 925 ML No growth of clinically significant organisms * ML - Main Lab . END OF REPORT DEPARTMENT OF PATHOLOGY, [address] [place] [address] Rashid Mcintosh M.D. Director [facility] # [id number] 40 Because ethnic data is not always [...] tested in 2-4 weeks. Test Performed by: [facility] [address] [id number] REFERENCE VALUE <4.0 (Negative) Test Performed by: [place] [id number] Negative serology. Celiac disease unlikely. However, approximately 10% of patients with celiac disease are seronegative. Also, patients who are already adhering to a gluten-free diet may be seronegative. If celiac disease is highly clinically suspected, consider HLA-DQ typing. Test Performed by: [place] [id number] The urine specimen was tested at the listed cutoffs: Drug class test level (ng/mL) Amphetamines 500 Barbiturates 200 Benzodiazepine metabolites 200 Cocaine metabolites 150 Cannabinoids 50 Opiates 300 Pcp 25 Specimen was received without chain of custody. Results should be used for medical purposes only. 47 SEE RESULT BELOW Name: ABRIL NGUYEN : [address]: Je Duarte MD Acct: [id number] Unit: [id number] AGE: 41 Location: ED Re06/24/17 SEX: F Status: DEP ER SPEC: [id number] TYLER: 06/24/[address]: Je Duarte MD REQ: [id number] RECD: 06/24/17 STATUS: CONNIE GLOVER DR: Joseph Hagen MD _ SOURCE: URINE SPDESC: ORDERED: Urine Culture Procedure Result Reported Site Urine Culture Final 06/26/17- 12 ML No growth of clinically significant organisms * ML - MAIN LAB (PSC1) . END OF REPORT * ML=Testing performed at Main Lab DEPARTMENT OF PATHOLOGY, [address] [place] [address] Rashid Mcintosh M.D. Director [facility] # [id number] 48 [facility] Severe Sepsis and Septic Shock Management Bundle [...] in selective patients <6.0%. Please refer to [place] [employer] diabetic care guidelines for further [...] dialysis) Procedures Date Code Description Status 12/25/2018 67757 Spirometry Completed 12/15/2018 99931 X-Ray Chest 2 V Completed 06/04/2018 28509613 Mammogram Completed 01/27/2018 66146 Electrocardiogram Complete Completed 01/08/2018 51875 SC/Im Injections Completed 06/13/2017 85996 Visual Acuity Screening Test Completed 05/13/2017 84735 Electrocardiogram Complete Completed Encounters Type Date Location [...] F17.210 Nicotine dependence, cigarettes, uncomplicated Z79.899 Other [facility]p (current) drug therapy Office Visit 03/20/2018 9:20a Main Office Katy Sol, L03.115 Cellulitis of P.A. right lower limb G47.33 Obstructive sleep apnea (adult) (pediatric) E66.9 Obesity, unspecified I10 Essential (primary) hypertension D64.9 Anemia, unspecified R53.1 Weakness Z23 Encounter for immunization Z41.8 Encntr for oth proc for purpose oth than [facility] Z59.4 Lack of adequate food [...] Office Visit 05/13/2017 4:20p Main Office Danii Gonzáels R07.89 Other chest pain I10 Essential (primary) hypertension G89.4 Chronic pain syndrome F43.23 Adjustment disorder with mixed anxiety and depressed mood E66.9 Obesity, unspecified K21.9 Gastro-esophageal reflux disease without esophagitis D64.9 Anemia, unspecified Plan of Treatment Future Appointment(s):01/27/2019 8:40 am - Danii Gonzáles at Main [id number] 3:00 pm - Danii Gonzáles at Main Office
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
[2019-01-03 07:23] VITALS: BP 121/88
== END | disposition home or self-care (01) ==
LOC: ED 04:41
DX: F19.10 Other psychoactive substance abuse, uncomplicated (principal); R00.2 Palpitations; R42 Dizziness and giddiness; R68.2 Dry mouth, unspecified; I10 Essential (primary) hypertension; Z96.642 Presence of left artificial hip joint; F17.210 Nicotine dependence, cigarettes, uncomplicated
CPT/HCPCS: 93005; 99282

== ENCOUNTER 2019-04-28 20:31 | Emergency (ER) | payer OTHER ==
--- OUTSIDE RECORDS SUMMARY | 2019-04-28 20:58 | XMS REPORT | Continuity of Care Document ---
:1975 External Reference #:[id number] Author Name Danii Gonzáles (transmitted by agent of provider Joseph Hagen) Address [address] [place] [address] Care Team Providers Name Role Phone HCP given Care Team Information Cargo Broker Unavailable Problems Active Problems Provider Date Essential hypertension [...] D deficiency Valeria Nelson PA Onset: 06/25/2018 Social History Type Date Description Comments Sex Unknown Tobacco Use Start: Unknown End: Former Cigarette Smoker Unknown ETOH Use Denies alcohol use "rarely" Recreational [...] Home No Smoke Alarms Yes smoke alarm Allergies, Adverse Reactions, Alerts Description No Known Drug Allergies Medications Active Medications SIG Qnty Indications Ordering Date Provider Losartan Potassium 1/2 tab every 14tabs I10 Sopchak, 50mg Tablets day for blood Bhupendra D.OHolger 9 pressure control Nicotine Mini 1 lozenge every 162units F17.210 Silcoff, 4mg Lozenges one to two Shanique Ruiz 9 hours, or when have urge to smoke Aripiprazole take one tablet 30tabs F43.23 Silcoff, 5mg Tablets by mouth nightly Shanique Ruiz 9 for mood Albuterol Sulfate HFA inhale one to 18units Silcoff, two puffs by Shanique Ruiz 9 108(90Base) mcg/Act mouth every 4 Aerosol hours for breath Naproxen take 2 tablet by 120tabs Xiao, 250mg Tablets mouth two times Shanique Ruiz 9 daily as needed Hydrochlorothiazide take 1 tablet by 30tabs I10 Silcoff, 25mg mouth every day Shanique Ruiz 9 Tablets Fluticasone Propionate 2 sprays into 16gm J30.9 Silcoff, each nostril Shanique Ruiz 7 50mcg/Act Suspension once daily for nasal congestion as needed History Medications Prednisone 2 tabs for 5 days then 15tabs R05 Siljanae, 12/25/2018 - 10mg 1 tab for 5 days with Shanique Ruiz 01/26/2019 Tablets cough/breathing Loratadine 1 by mouth before bed, 30caps Silcoff, 12/22/2018 - 10mg nightly Shanique Ruiz 01/26/2019 Capsules Eql Omeprazole 1 tab po in morning 20 30tabs R05 Silcoff, 12/15/2018 - minutes before the Shanique Ruiz 01/26/[address] first meal of the day Losartan Potassium 1 tablet daily for 30tabs I10 Xiao, 12/05/2018 - high blood pressure Shanique Ruiz 01/21/2019 25mg Tablets Benzonatate 1 cap up to three 30caps R05 Silcorob, 12/05/2018 - 200mg times a day for cough Shanique Ruiz 12/24/2018 Capsules Benzonatate 1 cap up to three 30caps R05 Abicorob, 11/13/2018 - 200mg times a day for cough, Shanique Riuz 12/04/2018 Capsules when no longer productive Amoxicillin 1 by mouth twice a day 20tabs J01.90 Silcorob, 10/10/2018 - 875mg x 10 days for Shanique Ruiz 11/12/2018 Tablets bacterial pharyngitis Medications Administered in Office Medication SIG Qnty Indications Ordering Provider Date TB Intradermal Test Katy Sol PHolgerAHolger 2018 Injection TB Intradermal Test Valeria Nelson PA 06/04/2018 Injection Toradol 15MG. Valeria Nelson PA 01/08/2018 Injection SC/Im Injections Valeria Nelson PA 01/08/2018 Injection TB Intradermal Test Katy Sol, PHolgerAHolger 06/04/2017 Injection Immunizations CPT Code Status Date Vaccine Lot # [id number] Given 03/23/2019 Influenza Virus Vaccine, Quadrivalent, Split, [id number] Preservative Free 48645 Given 03/20/2018 Influenza Virus Vaccine, Quadrivalent, Split, [id number] Preservative Free 07002 Given 06/06/2017 MMR Virus Immunization [id number] 62447 Given 06/04/2017 Influenza Virus Vaccine, Quadrivalent, Split, [id number] Preservative Free 55367 Given 12/11/2016 Adacel or Boostrix, TDaP 93929 Given 12/11/2016 MMR Virus Immunization U-Flu Given 04/23/2016 Influenza,Unspecified U-Flu Given 04/02/2013 Influenza,Unspecified 91605 Given 02/27/2012 Flu, Split Virus 3Yrs Vital Signs Date Vital Result Comment 03/23/2019 4:02pm BP Systolic 136 mmHg BP Diastolic 94 mmHg BP Systolic Recheck 140 mmHg BP Diastolic Recheck 90 mmHg Weight 196.00 lb 02/04/2019 4:31pm BP Systolic 122 mmHg BP Diastolic 78 mmHg Weight 200.00 lb Results Test Date Facility Test Result H/L Range Note Laboratory test finding 10/10/2018 In House Culture Throat negative Culture Throat Rapid Screen negative HIV 1/2 AB 09/23/2018 [facility] HIV 1 2 Nonreactive Nonreactive 1 Evaluation [phone] Antibody Hepatitis C 09/23/2018 [facility] HCV Index < 0.0 Index Antibody [phone] Hepatitis C Antibody Nonreactive Nonreactive 1 It is recognized that currently available [...] 95% confidence interval of 99.78 to 99.96%. Procedures Date Code Description Status 01/29/2019 08647 Remove Foreign Body Subcutaneous Simple Completed 12/25/2018 80336 Spirometry Completed 12/15/2018 45832 X-Ray Chest 2 V Completed 06/04/2018 86801039 Mammogram Completed Medical Devices Description No Information Available Encounters Type Date Location Provider Dx Diagnosis Office Visit 03/23/2019 Main Office Danii Gonzáles I10 Essential ( primary) 3:40p hypertension Z23 Encounter for immunization M54.16 Radiculopathy, lumbar region F43.23 Adjustment disorder with mixed anxiety and depressed mood Office Visit 02/04/2019 3:00p Main Office Bhavani Hagen4.12 RadiculolynnyJoseph M.D. cervical region G89.4 Chronic pain syndrome M51.16 Intervertebral disc disorders w radiculopathy, lumbar region Z02.89 Encounter for other administrative examinations Office Visit 01/29/2019 1:20p Main Office Katy Sol F11.21 Opioid dependence, P.A. in remission F43.23 Adjustment disorder with mixed anxiety and depressed mood I10 Essential (primary) hypertension F14.11 Cocaine abuse, in remission M54.12 Radiculopathy, cervical region G89.4 Chronic pain syndrome T16.9xxA Foreign body in ear, unspecified ear, initial encounter Office Visit 01/02/2019 11:45a Main Office Bhupendra Nunes, M51.16 Intervertebral disc D.O. disorders w radiculopathy, lumbar region R20.0 Anesthesia of skin F43.23 Adjustment disorder with mixed anxiety and [...] Visit 12/25/2018 4:40p Main Office Katy Sol P.A. R06.2 Wheezing R05 Cough F43.23 Adjustment disorder with mixed anxiety and depressed mood I10 Essential (primary) hypertension F17.210 Nicotine dependence, cigarettes, uncomplicated J30.9 Allergic rhinitis, unspecified Office Visit 12/15/2018 3:20p Main Office Karuna Gonzáles3.23 Adjustment disorder P.A. with mixed anxiety and depressed mood R05 Cough I10 Essential (primary) hypertension F17.210 Nicotine dependence, cigarettes, uncomplicated Office Visit 12/05/2018 4:00p Main Office Karuna Gonzáles3.23 Adjustment disorder P.A. with mixed anxiety and depressed mood R05 Cough I10 Essential (primary) hypertension Office Visit 11/13/2018 3:00p Main Office Karuna Gonzáles3.23 Adjustment disorder P.A. with mixed anxiety and depressed mood M54.12 Radiculopathy, cervical region R05 Cough J30.9 Allergic rhinitis, unspecified Office Visit 10/10/2018 4:20p Main Office Katy Sol J02.9 Acute pharyngitis, P.A. unspecified J01.90 Acute sinusitis, unspecified Office Visit 09/29/2018 11:40a Main Office Katy Sol, I10 Essential ( primary) P.A. hypertension F43.23 Adjustment disorder with mixed anxiety and depressed mood F14.14 Cocaine abuse with cocaine-induced mood disorder M54.12 Radiculopathy, cervical region Z71.51 Drug abuse counseling and surveillance of drug abuser Assessments Date Code Description Provider 03/23/2019 I10 Essential (primary) hypertension Katy Baker, P.A. 03/23/2019 Z23 Encounter for immunization Katy Baker, P.A. 03/23/2019 M54.16 Radiculopathy, lumbar region Katy Baker, P.A. 03/23/2019 F43.23 Adjustment disorder with mixed anxiety and Katy Baker, P.A. depressed mood 02/04/2019 M54.12 Radiculopathy, cervical region Joseph Hagen M.D. 02/04/2019 G89.4 Chronic pain syndrome Joseph Hagen M.D. 02/04/2019 M51.16 Intervertebral disc disorders with Joseph Hagen M.D. radiculopathy, lumbar reg 02/04/2019 Z02.89 Encounter for other administrative Joseph Hagen M.D. examinations 01/29/2019 F11.21 Opioid dependence, in remission Katy Baker, P.A. 01/29/2019 F43.23 Adjustment disorder with mixed anxiety and Katy Baker, P.A. depressed mood 01/29/2019 I10 Essential (primary) hypertension Katy Baker, P.A. 01/29/2019 F14.11 Cocaine abuse, in remission Katy Baker, P.A. 01/29/2019 M54.12 Radiculopathy, cervical region Katy Baker, P.A. 01/29/2019 G89.4 Chronic pain syndrome Katy Baker, P.A. 01/29/2019 T16.9xxA Foreign body in ear, unspecified ear, Katy Ramirezle, P.A. initial encounter 01/02/2019 M51.16 Intervertebral disc disorders with Sopchak, Bhupendra, D.O. radiculopathy, lumbar reg 01/02/2019 R20.0 Anesthesia of skin Bhupendra Nunes D.O. 01/02/2019 F43.23 Adjustment disorder with mixed anxiety and Bhupendra Nunes D.O. depressed mood 01/02/2019 I10 Essential (primary) hypertension Bhupendra Nunes D.O. 01/02/2019 F17.210 Nicotine dependence, cigarettes, Bhupendra Nunes D.O. uncomplicated 01/02/2019 F14.11 Cocaine abuse, in remission Bhupendra Nunes D.O. 01/02/2019 M54.12 Radiculopathy, cervical region Bhupendra Nunes D.OHolger 01/02/2019 G89.4 Chronic pain syndrome Bhupendra Nunes D.O. 01/02/2019 E66.9 Obesity, unspecified Bhupendra Nunes D.O. 01/02/2019 G47.33 Obstructive sleep apnea (adult) (pediatric) Bhupendra Nunes D.O. 01/02/2019 J45.909 Unspecified asthma, uncomplicated Bhupendra Nunes D.O. 01/02/2019 M54.5 Low back pain Bhupendra Nunes D.O. 12/30/2018 R05 Cough Katy Baker, P.A. 12/30/2018 F43.23 Adjustment disorder with mixed anxiety and Katy Baker, P.A. depressed mood 12/30/2018 I10 Essential (primary) hypertension Katy Baker, P.A. 12/30/2018 F17.210 Nicotine dependence, cigarettes, Katy Baker, P.A. uncomplicated 12/30/2018 F14.11 Cocaine abuse, in remission Katy Baker, P.A. 12/25/2018 R06.2 Wheezing Katy Baker, P.A. 12/25/2018 R05 Cough Katy Baker, P.A. 12/25/2018 F43.23 Adjustment disorder with mixed anxiety and Katy Baker, P.A. depressed mood 12/25/2018 I10 Essential (primary) hypertension Katy Baker, P.A. 12/25/2018 F17.210 Nicotine dependence, cigarettes, Katy Baker, P.A. uncomplicated 12/25/2018 J30.9 Allergic rhinitis, unspecified Katy Baker, P.A. 12/15/2018 F43.23 Adjustment disorder with mixed anxiety and Katy Baker, P.A. depressed mood 12/15/2018 R05 Cough Katy Baker, P.A. 12/15/2018 I10 Essential (primary) hypertension Katy Baker, P.A. 12/15/2018 F17.210 Nicotine dependence, cigarettes, Katy Baker, P.A. uncomplicated 12/05/2018 F43.23 Adjustment disorder with mixed anxiety and Katy Baker, P.A. depressed mood 12/05/2018 R05 Cough Katy Baker, P.A. 12/05/2018 I10 Essential (primary) hypertension Katy Baker, P.A. 11/13/2018 F43.23 Adjustment disorder with mixed anxiety and Katy Baker, P.A. depressed mood 11/13/2018 M54.12 Radiculopathy, cervical region Katy Baker, P.A. 11/13/2018 R05 Cough Katy Baker, P.A. 11/13/2018 J30.9 Allergic rhinitis, unspecified Katy Baker, P.A. 10/10/2018 J02.9 Acute pharyngitis, unspecified Katy Baker, P.A. 10/10/2018 J01.90 Acute sinusitis, unspecified Katy Baker, P.A. 09/29/2018 I10 Essential (primary) hypertension Katy Baker, P.A. 09/29/2018 F43.23 Adjustment disorder with mixed anxiety and Katy Baker, P.A. depressed mood 09/29/2018 F14.14 Cocaine abuse with cocaine-induced mood Katy Baker, P.A. disorder 09/29/2018 M54.12 Radiculopathy, cervical region Katy Baker, P.A. 09/29/2018 Z71.51 Drug abuse counseling and surveillance of Danii Gonzáles drug abuser Plan of Treatment Future Appointment(s):04/23/2019 8:40 am - Danii Gonzáles at [facility] - Danii GonzálesF11.21 Opioid dependence, in remissionComments: counseled on the need to take the suboxone as Rx'd. pt is likely to cont to have strong cravings andthis will keep those craving controlled. pt states that is what counselors at [facility] told has as wellF43.23 Adjustment disorder with mixed anxiety and depressed moodI10 Essential (primary) hypertensionComments:pt advised to report cp, change in angina , sob etContinue same meds with no change. Comply with diet and exercise. Lose weight and watch salt in diet.F14.11 Cocaine abuse, in remissionFollow up:doing well, cont with [facility]54.12 Radiculopathy, cervical igngdjF77.4 Chronic pain syndromeFollow up:lehvgsqxA44.9xxA Foreign body in ear, unspecified ear, initial encounterComments:removal of one ear ring, unable to remove other one with more than 10 minutes attempting to do thisFollow up:recommend going to ear piecing place where they might have the tools to cut the metal to remove the piecing. 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 Consult and Treat [facility] [address], [place] [address] [phone] Pain Clinic Chronic cervical pain with radicular symptoms. Hx C3-T1 Closed fusion. Consult and Treat [facility] [address] [place] [id number] [phone]
--- OUTSIDE RECORDS SUMMARY | 2019-04-28 20:58 | XMS REPORT | Continuity of Care Document ---
:1975 External Reference #:[id number] Author Name Joseph Hagen M.D. 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 Problems Active Problems Provider Date Essential [...] breath Naproxen take 2 tablet by 120tabs Abicorob, 250mg Tablets mouth two times Shanique Ruiz daily as needed Hydrochlorothiazide take 1 tablet [...] tab po in morning 20 30tabs R05 Abicorob, 12/15/2018 - minutes before the Shanique Ruiz [...] 200mg times a day for cough, Shanique Ruiz 12/04/2018 Capsules when no longer productive Amoxicillin 1 by mouth twice a day 20tabs J01.90 Silcorob, 10/10/2018 - 875mg x 10 days for Shanique Ruiz 11/12/2018 Tablets bacterial pharyngitis Medications Administered in Office Medication SIG Qnty Indications Ordering Provider Date TB Intradermal Test Katy Sol PHolgerA. 2018 Injection TB Intradermal Test Valeria Nelson PA 06/04/2018 Injection Toradol 15MG. Valeria Nelson PA 01/08/2018 Injection SC/Im Injections Valeria Nelson PA 01/08/2018 Injection TB Intradermal Test Katy Sol, PHolgerAHolger 06/04/2017 Injection Immunizations CPT Code Status Date Vaccine Lot # [id number] Given 03/23/2019 Influenza Virus Vaccine, Quadrivalent, Split, [id number] Preservative Free 81946 Given 03/20/2018 Influenza Virus Vaccine, Quadrivalent, Split, [id number] Preservative Free 49780 Given 06/06/2017 MMR Virus Immunization [id number] Given 06/04/2017 Influenza Virus Vaccine, Quadrivalent, Split, [id number] Preservative Free 31101 Given 12/11/2016 Adacel or Boostrix, TDaP 30975 Given 12/11/2016 MMR Virus Immunization U-Flu Given 04/23/2016 Influenza,Unspecified U-Flu Given 04/02/2013 Influenza,Unspecified 97029 Given 02/27/2012 Flu, Split Virus 3Yrs Vital Signs Date Vital Result Comment 03/25/2019 5:05pm BP Systolic 134 mmHg BP Diastolic 80 mmHg Body Temperature 98.5 F 03/23/2019 4:02pm BP Systolic 136 mmHg BP Diastolic 94 mmHg BP Systolic Recheck 140 mmHg BP Diastolic Recheck 90 mmHg Weight 196.00 lb Results Test Date Facility Test Result H/L Range Note Laboratory test finding 10/10/2018 In House Culture Throat negative Culture Throat Rapid Screen negative Procedures Date Code Description Status 01/29/2019 81333 Remove Foreign Body Subcutaneous Simple Completed 12/25/2018 20922 Spirometry Completed 12/15/2018 29713 X-Ray Chest 2 V Completed 06/04/2018 [id number] Mammogram Completed Medical Devices Description No Information Available Encounters Type Date Location Provider Dx Diagnosis Office Visit 03/25/2019 Main Office Joseph Hagen, J06.9 Acute upper 4:30p M.D. respiratory infection, unspecified R05 Cough Office Visit 03/23/2019 3:40p Main Office Katy Sol, I10 Essential ( primary) P.A. hypertension Z23 Encounter for immunization M54.16 Radiculopathy, lumbar region F43.23 Adjustment disorder with mixed anxiety and depressed mood Office Visit 02/04/2019 3:00p Main Office Xiao M54.12 RadiculopathyJoseph M.D. cervical region G89.4 Chronic pain syndrome M51.16 Intervertebral disc disorders w radiculopathy, lumbar region Z02.89 Encounter for other administrative examinations Office Visit 01/29/2019 1:20p Main Office Katy Sol, F11.21 Opioid dependence, P.A. in remission F43.23 [...] Office Visit 12/15/2018 3:20p Main Office Katy Sol F43.23 Adjustment disorder [...] drug abuser Assessments Date Code Description Provider 03/25/2019 J06.9 Acute upper respiratory infection, Joseph Hagen M.D. unspecified 03/25/2019 R05 Cough Joseph Hagen M.D. 03/23/2019 I10 Essential (primary) hypertension Katy Sol, P.A. 03/23/2019 Z23 Encounter for immunization Katy Sol, P.A. 03/23/2019 M54.16 Radiculopathy, lumbar region Katy Sol, P.A. 03/23/2019 F43.23 Adjustment disorder with mixed anxiety and Katy Sol, P.A. depressed mood 02/04/2019 M54.12 Radiculopathy, cervical region Joseph Hagen M.D. 02/04/2019 G89.4 Chronic pain syndrome Joseph Hagen M.D. 02/04/2019 M51.16 Intervertebral disc disorders with Joseph Hagen M.D. radiculopathy, lumbar reg 02/04/2019 Z02.89 Encounter for other administrative Joseph Hagen M.D. examinations 01/29/2019 F11.21 Opioid dependence, in remission Katy Sol, P.A. 01/29/2019 F43.23 Adjustment disorder with mixed anxiety and Katy Sol, P.A. depressed mood 01/29/2019 I10 Essential (primary) hypertension Katy Sol, P.A. 01/29/2019 F14.11 Cocaine abuse, in remission Katy Sol, P.A. 01/29/2019 M54.12 Radiculopathy, cervical region Katy Sol, P.A. 01/29/2019 G89.4 Chronic pain syndrome Katy Sol, P.A. 01/29/2019 T16.9xxA Foreign body in ear, unspecified ear, Katy Sol P.A. initial encounter 01/02/2019 M51.16 Intervertebral disc disorders with Bhupendra Nunes D.O. radiculopathy, lumbar reg 01/02/2019 R20.0 Anesthesia [...] 01/02/2019 G89.4 Chronic pain syndrome Bhupendra Nunes D.OHolger 01/02/2019 E66.9 Obesity, unspecified Bhupendra Nunes D.O. 01/02/2019 G47.33 Obstructive sleep apnea (adult) (pediatric) Bhupendra Nunes D.OHolger 01/02/2019 J45.909 Unspecified asthma, uncomplicated Bhupendra Nunes D.O. 01/02/2019 M54.5 Low back pain Bhupendra Nunes D.O. 12/30/2018 R05 Cough Katy Wellington, P.A. 12/30/2018 F43.23 Adjustment disorder with mixed anxiety and Katy Wellington, P.A. depressed mood 12/30/2018 I10 Essential (primary) hypertension Katy Wellington, P.A. 12/30/2018 F17.210 Nicotine dependence, cigarettes, Katy Wellington, P.A. uncomplicated 12/30/2018 F14.11 Cocaine abuse, in remission Katy Wellington, P.A. 12/25/2018 R06.2 Wheezing Katy Wellington, P.A. 12/25/2018 R05 Cough Katy Wellington, P.A. 12/25/2018 F43.23 Adjustment disorder with mixed anxiety and Katy Wellington, P.A. depressed mood 12/25/2018 I10 Essential (primary) hypertension Katy Wellington, P.A. 12/25/2018 F17.210 Nicotine dependence, cigarettes, Katy Wellington, P.A. uncomplicated 12/25/2018 J30.9 Allergic rhinitis, unspecified Katy Wellington, P.A. 12/15/2018 F43.23 Adjustment disorder with mixed anxiety and Katy Wellington, P.A. depressed mood 12/15/2018 R05 Cough Katy Wellington, P.A. 12/15/2018 I10 Essential (primary) hypertension Katy Wellington, P.A. 12/15/2018 F17.210 Nicotine dependence, cigarettes, Katy Wellington, P.A. uncomplicated 12/05/2018 F43.23 Adjustment disorder with mixed anxiety and Katy Wellington, P.A. depressed mood 12/05/2018 R05 Cough Katy Wellington, P.A. 12/05/2018 I10 Essential (primary) hypertension Katy Wellington, P.A. 11/13/2018 F43.23 Adjustment disorder with mixed anxiety and Katy Wellington, P.A. depressed mood 11/13/2018 M54.12 Radiculopathy, cervical region Katy Wellington, P.A. 11/13/2018 R05 Cough Katy Wellington, P.A. 11/13/2018 J30.9 Allergic rhinitis, unspecified Katy Wellington, P.A. 10/10/2018 J02.9 Acute pharyngitis, unspecified Katy Wellington, P.A. 10/10/2018 J01.90 Acute sinusitis, unspecified Katy Wellington, P.A. 09/29/2018 I10 Essential (primary) hypertension Katy Wellington, P.A. 09/29/2018 F43.23 Adjustment disorder with mixed anxiety and Katy Wellington, P.A. depressed mood 09/29/2018 F14.14 Cocaine abuse with cocaine-induced mood Katy Wellington, P.A. disorder 09/29/2018 M54.12 Radiculopathy, cervical region Katy Wellington, P.A. 09/29/2018 Z71.51 Drug abuse counseling and surveillance of Danii Gonzáles drug abuser Plan of Treatment Future Appointment(s):04/23/2019 8:40 am - Danii Gonzáles at Main Office Functional Status Description No Information Available Mental Status Description No Information Available Referrals Refer to Reason for Referral Status Appt Victoria Carbone Md Right leg numbness and weakness, acute Closed onset with known history of pars defect and anteriolithesis of L5. Consult and Treat [facility] [address] [facility], [facility] [place] [address] [phone] Pain Clinic Chronic cervical pain with radicular symptoms. Hx C3-T1 Closed fusion. Consult and Treat [facility] [address] [place] [id number] [phone]
[2019-04-28] MEDS ORDERED: diPHENhydraMINE IV* 50 MG/ML 1 ml VIAL (BENADRYL) IV ONE (23:50)
[2019-04-28] MEDS ORDERED: methylPREDNISolone 125 MG* 2 ML VIAL IV ONE (23:50)
[2019-04-28] MEDS ORDERED: Famotidine IV* 10 MG/ML 2 ML (20 mg) IV SLOW PU ONE (23:52)
--- NOTE | 2019-04-28 23:52 | ED ---
Skin Complaint - HPI Summary HPI Summary: Patient is a 43 y/o F presenting to the ED for a chief complaint of rash. Patient describes the rash as a fire sensation that moves locations. Currently , the patient has a rash on the bilateral legs, bilateral arms, abdomen, and back. Patient denies chest pain, shortness of breath, or difficulty swallowing. The rash initially began while the patient was in [place] and occurred once a week. Patient initially believed that the rash was caused by fleas. Patient denies using any new soaps or detergents, or any medication changes. Patient took Benadryl without relief. Patient has a PSHx of , breast surgery, hip replacement, cholecystectomy, and neck surgery. Currently, patient is receiving treatment for a history of crack cocaine use, with the last use one month ago. Patient admits tobacco use, denies alcohol use. - History of Current Complaint Chief Complaint: EDRashSkinAbscess Time Seen by Provider: 04/28/19 23:28 Stated Complaint: ITCHY BODY RASH PER PT Hx Obtained From: Patient Hx Last Menstrual Period: last normal menstrual period 06/04/18, but a week late , bleeding since 06/29 Onset/Duration: Atraumatic, Still Present Skin Exposure Onset/Duration: Weeks Ago Timing: Constant, Lasting Weeks Onset Severity: Mild Current Severity: Mild Pain Intensity: 0 Pain Scale Used: 0-10 Numeric Skin Location: Diffuse, Arm - Bilateral, Abdomen, Leg - Bilateral, Other: - Back Character: Painful - "Fire" sensation Aggravating Symptom(s): Nothing Alleviating Symptom(s): Nothing, Other: - No relief with Bendryl Associated Signs & Symptoms: Rash Related History: Other: - Unknown - Additional Pertinent History Primary Care Physician: Dr. Hagen, [facility] - Allergy/Home Medications Allergies/Adverse Reactions: Allergies Allergy/AdvReac Type Severity Reaction Status Date / Time No Known Allergies Allergy Verified 04/28/19 20:45 Home Medications: Home Medications Losartan TAB* 25 mg PO DAILY 04/28/19 [History Confirmed 04/28/19] Naproxen TAB* [Naprosyn 250 mg TAB*] 500 mg PO BID 04/28/19 [History Confirmed 04/28/19] busPIRone TAB* 5 mg PO DAILY 04/28/19 [History Confirmed 04/28/19] PMH/Surg Hx/FS Hx/Imm Hx Previously Healthy: Yes Endocrine/Hematology History: Reports: Hx Anemia Denies: Hx Anticoagulant Therapy, Hx Diabetes, Hx Thyroid Disease Cardiovascular History: Reports: Hx Hypertension - on meds Denies: Hx Congestive Heart Failure, Hx Deep Vein Thrombosis, Hx Myocardial Infarction, Hx Pacemaker/ICD, Other Cardiovascular Problems/Disorders - DENIES Respiratory History: Denies: Hx Asthma, Hx Chronic Obstructive Pulmonary Disease (COPD), Hx Lung Cancer, Hx Pneumonia, Hx Pulmonary Embolism, Other Respiratory Problems/ Disorders - DENIES GI History: Reports: Other GI Disorders - Cholecystectomy Denies: Hx Gall Bladder Disease, Hx Gastrointestinal Bleed, Hx Ulcer, Hx Urosepsis History: Reports: Other Problems/Disorders - gallbladder problems Denies: Hx Kidney Stones, Hx Renal Disease Musculoskeletal History: Reports: Hx Arthritis, Hx Back Problems, Other Musculoskeletal History - ARTHROGRYPOSIS Sensory History: Reports: Hx Vision Problem Denies: Hx Contacts or Glasses, Hx Legally Blind, Hx Deafness, Hx Hearing Aid Opthamlomology History: Reports: Hx Vision Problem Denies: Hx Contacts or Glasses, Hx Legally Blind EENT History: Denies: Hx Deafness Neurological History: Reports: Hx Headaches, Hx Migraine, Other Neuro Impairments/Disorders - arthropisis Denies: Hx Dementia, Hx Seizures, Hx Transient Ischemic Attacks (TIA) Psychiatric History: Reports: Hx Anxiety, Hx Depression, Hx Post Traumatic Stress Disorder, Hx Inpatient Treatment, Hx Community Mental Health Tx, Hx Bipolar Disorder - abilify, Hx Suicide Attempt, Hx Substance Abuse - was on suboxone, states she is clean of opiate 07/12/18, + cocaine abuse,THC Denies: Hx Eating Disorder, Hx Panic Disorder - Surgical History Surgical History: Yes Surgery Procedure, Year, and Place: [facility] , left hip, , CHOLECYSTECTOMY, breast surgery BLOCKED DUCT, neck surgery x2 PLATES SCREWS, LEFT hip replacement, CONGENITAL LEFT HIP DISLOCATION AND REPAIR - Immunization History Date of Tetanus Vaccine: Unk Date of Influenza Vaccine: 04/21/16 Infectious Disease History: Yes Infectious Disease History: Reports: Hx Shingles - fall 2017, History Other Infectious Disease - meningitis 2013 Denies: Hx Hepatitis, Hx Human Immunodeficiency Virus (HIV), Traveled Outside the [place] in Last 30 Days - Family History Known Family History: Positive: Hypertension, Other - mother - lung cancer Negative: Cardiac Disease Family History: not aware of any cardio vascular issues in biological lineage - Social History Occupation: Employed Part-time Lives: Alone Alcohol Use: Rare Alcohol Amount: ONCE A MONTH Hx Substance Use: Yes Substance Use Type: Reports: Cocaine - Crack cocaine Hx Tobacco Use: Yes Smoking Status (MU): Light Every Day Tobacco Smoker Type: Cigarettes Amount Used/How Often: 2 cigarettes/day Length of Time of Smoking/Using Tobacco: 1+YEAR Have You Smoked in the Last Year: Yes Review of Systems - ROS Summary Review of Systems Summary: ARIPiprazole TAB* [Abilify TAB*] 5 mg PO DAILY 08/12/18 [History Confirmed 06/04] Fluticasone NASAL SPRAY 50MCG* [Flonase NASAL SPRAY 50MCG*] 2 spray BOTH NARES DAILY PRN 08/12/18 [History Confirmed 04/28/19] Hydrochlorothiazide TAB* [Hydrodiuril TAB*] 25 mg PO DAILY tab 08/15/18 [Rx Confirmed 04/28/19] Losartan TAB* 25 mg PO DAILY 04/28/19 [History Confirmed 04/28/19] Naproxen TAB* [Naprosyn 250 mg TAB*] 500 mg PO BID 04/28/19 [History Confirmed 04/28/19] busPIRone TAB* 5 mg PO DAILY 04/28/19 [History Confirmed 04/28/19] Positive: Other - Negative difficulty swallowing Negative: Chest Pain Negative: Shortness Of Breath Positive: Rash - Back, bilateral legs, bilateral arms, and abdomen All Other Systems Reviewed And Are Negative: Yes Physical Exam - Summary Physical Exam Summary: General: Well-developed, Obese FEMALE. No apparent distress. HEENT: Normocephalic, Atraumatic. Eyes: Conjuctiva normal, PERRL. Ears: TMs within normal limits. Nares: (-) discharge, (-) erythema. Oropharynx: Clear, mucous membranes moist, (-) exudates. Neck: Soft, FROM, (-) lymphadenopathy, (-) thyromegaly, (-) JVD. Cardiovascular: Normal sinus rhythm, (-) murmur. Lungs: Clear to auscultation bilaterally (-) wheezes, (-) rales, (-) rhonchi. Abdomen: Soft, non-tender, non-distended, (-) organomegaly, normal bowel sounds. Back: (-) CVA tenderness Extremities: No edema. Skin: Warm, dry, Diffuse hives on the back, abdomen, arms, and legs. Neuro: Alert and oriented x3, no focal deficits. Psychiatric: Mood normal, affect normal. Triage Information Reviewed: Yes Vital Signs On Initial Exam: Initial Vitals Temp Pulse Resp BP Pulse Ox 98 F 94 15 131/92 99 04/28/19 20:44 04/28/19 20:44 04/28/19 20:44 04/28/19 20:44 04/28/19 20:44 Vital Signs Reviewed: Yes Procedures - Sedation Patient Received Moderate/Deep Sedation with Procedure: No Diagnostics - Vital Signs Vital Signs Temp Pulse Resp BP Pulse Ox 04/28/19 23:27 98 121/83 97 04/28/19 23:26 98 98 04/28/19 22:55 98.4 F 103 14 127/89 99 04/28/19 20:44 98 F 94 15 131/92 99 - Laboratory Lab Statement: Any lab studies that have been ordered have been reviewed, and results considered in the medical decision making process. Re-Evaluation - Re-Evaluation First Re-Evaluation Time: 01:06 Change: Improved Comment: I have discussed results with the patient and symptoms are resolved. Discussed symptoms that warrant immediate return to ED. Course/Dx - Course Course Of Treatment: 43-year-old female with diffuse hives and itching. Patient states the Benadryl alone is not helping. Offered Solu-Medrol, Pepcid, Benadryl. Patient agreed. However IV access was unable to be obtained. Meds given by mouth at this time. Patient agrees with plan. Will be discharged home. Follow-up with PCP. Follow-up sooner for any worsening symptoms. - Diagnoses Provider Diagnoses: Allergic reaction, Hives Discharge ED - Sign-Out/Discharge Documenting (check all that apply): Patient Departure - Discharge - Discharge Plan Condition: Stable Disposition: HOME Patient Education Materials: General Allergic Reaction (ED) Referrals: Joseph Hagen MD [Primary Care Provider] - Bartolo Murillo MD [Medical Doctor] - Additional Instructions: Please follow up with your primary care physician and/or an smash hand within three days. Please return to ED for any new or worsening symptoms. Take Benadryl every 6 hours and Pepcid daily. - Billing Disposition and Condition Condition: STABLE Disposition: Home - Attestation Statements Document Initiated by Scribe: Yes Documenting Scribe: Suzy Gamez Provider For Whom Reneeibe is Documenting (Include Credential): Samantha Munoz MD Scribe Attestation: Suzy Bonilla, scribed for Samantha Munoz MD on 04/29/19 at 0624. Scribe Documentation Reviewed: Yes Provider Attestation: The documentation as recorded by the Suzy jean accurately reflects the service I personally performed and the decisions made by me, Samantha Munoz MD Status of Scribe Document: Viewed
[2019-04-29] MEDS ORDERED: diPHENhydraMINE PO* 50 MG PO ONE (00:27)
[2019-04-29] MEDS ORDERED: predniSONE TAB* 20 MG PO ONE (00:28)
[2019-04-29] MEDS ORDERED: Famotidine TAB* 20 MG PO ONE (00:28)
[2019-04-29] MEDS ORDERED: Fluticasone NASAL SPRAY 50MCG* 16 gm SPRAY BTL BOTH NARES PRN (00:35)
[2019-04-29 01:31] VITALS: BP 116/81
[2019-04-29] MEDS ORDERED: Hydrochlorothiazide TAB* 25 MG PO SCH (09:00)
[2019-04-29] MEDS ORDERED: ARIPiprazole TAB* 5 MG PO SCH (09:00)
[2019-04-29] MEDS ORDERED: Losartan TAB* 25 MG PO SCH (09:00)
[2019-04-29] MEDS ORDERED: Naproxen TAB* 250 MG PO SCH (09:00)
[2019-04-29] MEDS ORDERED: busPIRone TAB* 5 MG PO SCH (09:00)
== END 2019-04-29 01:30 | disposition home or self-care (01) ==
LOC: ED 20:31
DX: T78.40XA Allergy, unspecified, initial encounter (principal); L50.9 Urticaria, unspecified; R21 Rash and other nonspecific skin eruption; I10 Essential (primary) hypertension; Z79.899 Other long term (current) drug therapy; D64.9 Anemia, unspecified; F41.9 Anxiety disorder, unspecified; F32.9 Major depressive disorder, single episode, unspecified; F17.210 Nicotine dependence, cigarettes, uncomplicated
CPT/HCPCS: 99283; A9270-GY; J1200; J2930; J7512